=== PATIENT | female | born 1935 | race Caucasian/White ===

== ENCOUNTER 2016-05-24 15:29 | Emergency (ER) | payer OTHER ==
[~2016-05-24] VITALS: Ht 154.9 cm; Wt 80.0 kg
[2016-05-24 15:58] VITALS: TEMP 36.9; Ht 154.9 cm; Wt 80.0 kg
[2016-05-24] MEDS ORDERED: ASCA500 PO (17:47)
[2016-05-24] MEDS ORDERED: MISCTAB78 PO (17:47)
[2016-05-24] MEDS ORDERED: LOSA1TAB PO (17:47)
[2016-05-24] MEDS ORDERED: NTRGSL/4 UT (17:47)
[2016-05-24] MEDS ORDERED: METO-649 PO (17:47)
[2016-05-24] MEDS ORDERED: VERA120T2 PO (17:47)
[2016-05-24] MEDS ORDERED: WARF5TAB7 PO (17:47)
[2016-05-24] MEDS ORDERED: CRS/10 PO (17:47)
[2016-05-24] MEDS ORDERED: WARF7.5T4 PO (17:47)
[2016-05-24] MEDS ORDERED: ASPI81TA28 PO (17:47)
[2016-05-24] MEDS ORDERED: METO100T44 PO (17:47)
[2016-05-24 18:07] VITALS: BP 193/102; PULSE 71; O2SAT 95
--- NOTE | 2016-05-24 23:25 | EMERGENCY ROOM VISIT NOTE ---
History Report prepared by Leland: Talya Tipton Under the Supervision of: Dr. James Arriola M.D. First contact with patient: 16:06 Chief Complaint: ALLERGIC REACTION Stated Complaint: ALLERGIC REACTION Nursing Triage Summary: Triage note: Pt reports numbness and tingling on face and mouth and lips at approx [address] her with numbing medication to remove cyst on her head. pt reports "i know i have so many allergies maybe i am allergic to the numbing medication." pt reports "i just feel so washed out, i feel tired." History of Present Illness The patient is a 81 year old female who presents to the Emergency Room with complaints of a resolved allergic reaction that occurred about 2 hours ago, around 1430. The patient states that she was supposed to have a cyst removed from her head today, but when Dr. Jorge Brunson injected the area with lidocaine containing epinephrine, the patient began to experience numbness in her entire face. She states that only a small amount was injected, but she adds that she has a long list of medications, some of which are severe, that she is allergic to so she suspects that she had an allergic reaction to the lidocaine or epinephrine. The patient adds that the doctor was also concerned about the patient's fluctuating blood pressure, so she recommended coming into the ED for further evaluation. She did not have the cyst removed. Pt denies LOC, headache , fevers, chills, diaphoresis, visual changes, neck pain, chest pain, breathing difficulties, nausea, vomiting, abdominal pain, back pain, melena, hematochezia , urinary symptoms, focal or unilateral weakness, lymphadenopathy, rash including anything that was erythematous or pruritic, or other complaints. The patient states that she felt well prior to the procedure, but after the facial numbness she felt fatigued. The patient's adds that the patient's cheeks are flushed, which is what normally happens when she has allergic reactions. The patient denies every experiencing facial numbness with an allergic reaction in the past. Source of History: patient, spouse/significant other () Onset: 2 hours ago, around 1430 Position: head Quality: other (allergic reaction) Timing: resolved Associated Symptoms: + fatigue Note: flushed cheeks Review of Systems See HPI for pertinent positives and negatives. A total of ten systems were reviewed and were otherwise negative. Past Medical & Surgical Medical Problems: (1) History of atrial fibrillation (2) Myocardial infarction Family History No pertinent family history Social History Smoking Status: Never Smoker Marital Status: Housing Status: lives with family Current/Historical Medications Scheduled Ascorbic Acid (Vitamin C), 1,000 MG PO BID Aspirin (Aspirin Ec), 81 MG PO DAILY Losartan Potassium (Cozaar), 25 MG PO DAILY Metoprolol Succ (Toprol Xl) (Toprol-Xl ), 100 MG PO QPM Metoprolol Succinate (Toprolxl (Toprol-Xl), 200 MG PO QAM Misc Natural Products (Osteo Bi-Flex Advanced Do), 1 TAB PO BID Nitroglycerin (Nitrostat), 0.4 MG UT PRN Rosuvastatin Calcium (Crestor), 10 MG PO 5XWK Verapamil Sust Rel (Calan Sr Ext Rel), 120 MG PO DAILY Warfarin Sod (Jantoven), 5 MG PO 3XWK Warfarin Sod (Jantoven), 7.5 MG PO 4XWK Allergies Coded Allergies: Clindamycin (Unverified Allergy, Severe, SHOCK, 05/24/16) Clopidogrel (Unverified Allergy, Severe, HIVES, 05/24/16) Epinephrine (Unverified Allergy, Severe, NUMBNESS, 05/24/16) Acetaminophen (Unverified Allergy, Unknown, UNKNOWN, 05/24/16) Chocolate (Unverified Allergy, Unknown, PIMPLES, 05/24/16) Codeine (Unverified Allergy, Unknown, UNKNOWN, 05/24/16) Ezetimibe (Unverified Allergy, Unknown, UNKNOWN, 05/24/16) Hydrocodone (Unverified Allergy, Unknown, UNKNOWN, 05/24/16) Levothyroxine (Unverified Allergy, Unknown, UNKNOWN, 05/24/16) Metronidazole (Unverified Allergy, Unknown, LOSS OF PIGMENT IN SKIN. FATIGUE, 05/24/16) Mupirocin (Unverified Allergy, Unknown, CELLULITIS, 05/24/16) Oxycodone (Unverified Allergy, Unknown, UNKNOWN, 05/24/16) Sotalol (Unverified Allergy, Unknown, SWOLLEN ANKLES/REDNESS ON RIGHT LEG , 05/24/16) EPINEPHRINE-LIDOCAINE Statins (Unverified Allergy, Unknown, ACHY JOINTS, 05/24/16) Ticlopidine (Unverified Allergy, Unknown, RASH, 05/24/16) Physical Exam Vital Signs Date Time Temp Pulse Resp B/P Pulse Ox O2 Delivery O2 Flow Rate FiO2 05/24/16 18:07 71 18 193/102 95 Room Air 05/24/16 16:36 61 18 188/80 95 Room Air 05/24/16 15:58 36.9 67 20 181/77 95 Room Air 05/24/16 15:57 95 Room Air Physical Exam GENERAL: Awake, alert, well-appearing, in no distress HENT: Normocephalic, atraumatic. Round cyst on top of scalp. No signs of swelling, erythema, or drainage. Oropharynx unremarkable. EYES: Normal conjunctiva. Sclera non-icteric. NECK: Supple. No nuchal rigidity. FROM. No JVD. RESPIRATORY: Clear to auscultation. CARDIAC: Regular rate, normal rhythm. Extremities warm and well perfused. Pulses equal. ABDOMEN: Soft, non-distended. No tenderness to palpation. No rebound or guarding. No masses. RECTAL: Deferred. MUSCULOSKELETAL: Chest examination reveals no tenderness. The back is symmetrical on inspection without obvious abnormality. There is no CVA tenderness to palpation. No joint edema. LOWER EXTREMITIES: Calves are equal size bilaterally and non-tender. No edema. No discoloration. NEURO: Normal sensorium. No sensory or motor deficits noted. SKIN: No rash or jaundice noted. Medical Decision & Procedures ED Course 1614: The patient was evaluated in room A10. A complete history and physical exam was performed. 1720: I reevaluated the patient. Discussed results and discharge instructions: she verbalized understanding and agreement. The patient is ready for discharge. Medical Decision Prior records/ancillary studies reviewed. Triage Nursing notes reviewed and agree them. Additional history obtained from the . The patient's history was concerning for possible allergic reaction. Differential diagnosis: Etiologies such as allergic reaction, anaphylaxis, urticaria, medication side effect, hypertensive emergency, CVA, as well as others were entertained. Physical examination: As above. ER treatment provided: Cardiac monitoring Reassurance On reassessment the patient felt better. Diagnostic interpretation by me: Deferred It appears the patient had an adverse or allergic reaction. As her symptoms resolved and she has had numerous problems with other medications I discussed conservative management. Her symptoms were bilateral and only occurred in the face. It was immediately after receiving the injection. Theoretically it is possible that she had some vessel deposition of the medication and that caused the symptoms. Her blood pressure was moderately elevated. She had not taken her evening medications yet. As she was asymptomatic at this time I believe the patient should do well with conservative management. She felt very comfortable with conservative management as did the . I did watch the patient for an extended period emergency department and she continued to feel better. I did advise her follow-up closely as an outpatient. She was advised to have her blood pressure rechecked this week in the office. She has any problems whatsoever she will return back to the emergency department. At this point time advanced diagnostic testing or blood work was felt to be unnecessary. I gave my usual and customary discussion regarding this issue. By the evaluation outlined above emergent etiologies such as airway compromise, Del Valle-Roberto syndrome, toxic epidermal necrolysis, erythema multiforme, cellulitis, CVA, TIA, as well as others were deemed relatively unlikely. The patient and were informed about the findings as listed above. All questions were answered and they were very pleased with the treatment. Return instructions were outlined and the patient was discharged in stable condition. Outpatient prescription management: No change Referral: The patient was referred back to her primary care physician for follow-up in 2- 3 days for a recheck of the current condition. The chart was completed utilizing [employer] Speech voice recognition software. Grammatical errors, random word insertions, pronoun errors, and incomplete sentences are an occasional side effect of this system due to software limitations, ambient noise, and hardware issues. Any formal questions or concerns about the content, text, or information contained within the body of this dictation should be directly addressed to the physician for clarification. Impression Primary Impression: Adverse reaction to drug Scribe Attestation The scribe's documentation has been prepared under my direction and personally reviewed by me in its entirety. I confirm that the note above accurately reflects all work, treatment, procedures, and medical decision making performed by me. Departure Information Dispostion Home / Self-Care Referrals Waldo Armstrong M.D. (PCP) Forms HOME CARE DOCUMENTATION FORM, IMPORTANT VISIT INFORMATION Patient Instructions My [facility] Additional Instructions Continue current medications. Return to the ER for worsening numbness, tingling, difficulty speaking, chest pain, difficulty breathing, fevers, vomiting, worsening of your condition, or as needed. Problem Qualifiers Primary Impression: Adverse reaction to drug Encounter type: initial encounter Qualified Codes: T88.7XXA - Unspecified adverse effect of drug or medicament, initial encounter
== END 2016-05-24 18:08 | disposition home or self-care (01) ==
LOC: C.EDB 15:30 → C.EDA 18:08
DX: T88.7XXA Unspecified adverse effect of drug or medicament, initial encounter (principal); I25.2 Old myocardial infarction; Z79.82 Long term (current) use of aspirin; Z79.01 Long term (current) use of anticoagulants

== ENCOUNTER → 2016-06-11 | Outpatient (CLI) | payer OTHER ==
[~2016-06-11] MED LIST: ASCA500 PO; ASPI81TA28 PO; CRS/10 PO; LOSA1TAB PO; METO-649 PO; METO100T44 PO; MISCTAB78 PO; NTRGSL/4 UT; VERA120T2 PO; WARF5TAB7 PO; WARF7.5T4 PO
[2016-06-11 13:22] LABS: CALCIUM 9.2 mg/dl (8.5-10.1)
[2016-06-11 13:29] LABS: ALT/SGPT 25 U/L (12-78); BLOOD UREA NITROGEN 14 mg/dl (7-18); CARBON DIOXIDE 26 mmol/L (21-32); CHLORIDE 108 mmol/L (98-107); CHOLESTEROL 174 mg/dl (0-200); CREATININE 0.67 mg/dl (0.60-1.20); GLUCOSE 96 mg/dl (70-99); MAGNESIUM 1.9 mg/dl (1.8-2.4); SODIUM 142 mmol/L (136-145)
[2016-06-11 13:34] LABS: AST/SGOT 18 U/L (15-37); CHOLESTEROL/HDL RATIO 2.7; HDL CHOLESTEROL 64 mg/dl; LDL CHOLESTEROL CALCULATED 66 mg/dl; TRIGLYCERIDES 222 mg/dl (0-150); VERY LOW DENSITY LIPOPROT CALC 44 mg/dl
== END | disposition home or self-care (01) ==
LOC: C.LABMFLN 08:42
PROVIDERS: ATTEND Family Medicine
DX: I48.91 Unspecified atrial fibrillation (principal); I10 Essential (primary) hypertension; E78.5 Hyperlipidemia, unspecified

== ENCOUNTER → 2016-06-21 | Outpatient (CLI) | payer OTHER | END | disposition home or self-care (01) | LOC: C.LABMFLN 09:08 | PROVIDERS: ATTEND Family Medicine | DX: R63.5 Abnormal weight gain (principal); I48.91 Unspecified atrial fibrillation; E78.5 Hyperlipidemia, unspecified; I10 Essential (primary) hypertension; E83.42 Hypomagnesemia ==

== ENCOUNTER → 2017-03-21 | Day surgery (SDC) | payer OTHER ==
[2017-03-10 08:48] VITALS: Ht 152.4 cm; Wt 84.1 kg
[~2017-03-21] VITALS: Ht 152.4 cm; Wt 84.1 kg
[~2017-03-21] MED LIST changes: +FURO-85 PO; +LIDOCAINE HCL 2% 2 ML VIAL (20MG/ML) ONE; -METO-649 PO; +METO200T32 PO; +POTA10CA28 PO; +PROPOFOL IV EMULSION 10 MG/ML 20 ML VIAL IV ONE
[2017-03-21 12:01] LABS: INR 1.1 (0.9-1.1)
--- NOTE | 2017-03-21 13:10 | Endo History and Physical ---
History & Physical Date of Service: Mar 21, 2017. Chief Complaint: abnormal GI series Referring Physician: Dr. Waldo Armstrong History of Present Illness For EGD Past Surgical History Hx Cardiac Surgery: Yes (CARDIAC ABLATION; CARDIAC CATH X5 WITH TOTAL 2 STENTS) Hx Internal Defibrillator: No Hx Pacemaker: Yes Hx Abdominal Surgery: Yes (HIATAL HERNIA SURGERY WITH MESH; DOMINGA WITH BSO) Hx of Implantable Prosthesis: No Hx Post-Op Nausea and Vomiting: No Hx Cancer Surgery: Yes (PARTIAL MASTECTOMY) Hx Thoracic Surgery: No Hx Orthopedic: No Hx Urinary Tract Surgery: No Family History None Social History Smoking Status: Never Smoker Hx Substance Use: No Hx Alcohol Use: No Allergies Coded Allergies: Clindamycin (Verified Allergy, Severe, SHOCK, 03/21/17) Clopidogrel (Verified Allergy, Severe, HIVES, 03/21/17) Epinephrine (Verified Allergy, Severe, NUMBNESS, 03/21/17) Codeine (Verified Allergy, Unknown, UNKNOWN, 03/21/17) Ezetimibe (Verified Allergy, Unknown, UNKNOWN, 03/21/17) Hydrocodone (Verified Allergy, Unknown, UNKNOWN, 03/21/17) Levothyroxine (Verified Allergy, Unknown, UNKNOWN, 03/10/17) Metronidazole (Verified Allergy, Unknown, LOSS OF PIGMENT IN SKIN. FATIGUE , 03/21/17) Mupirocin (Verified Allergy, Unknown, WEAKNESS,NAUSEATED, 03/21/17) Oxycodone (Verified Allergy, Unknown, UNKNOWN, 03/21/17) Sotalol (Verified Allergy, Unknown, SWOLLEN ANKLES/REDNESS ON RIGHT LEG, ) EPINEPHRINE-LIDOCAINE Ticlopidine (Verified Allergy, Unknown, RASH, 03/21/17) Chocolate (Verified Adverse Reaction, Unknown, PIMPLES, 03/21/17) Statins (Verified Adverse Reaction, Unknown, ACHY JOINTS, 03/21/17) Current Medications Reported Home Medications Medications Dose Route/Sig Max Daily Dose Days Date Category Dose Instructions Micro-K Ext Rel (Potassium Chloride) 10 Meq Capcr 10 Meq PO QAM 03/10/17 Reported Lasix (Furosemide) 20 Mg Tab 20 Mg PO Q2D 03/10/17 Reported Jantoven (Warfarin Sodium) 7.5 Mg Tab 7.5 Mg PO 6XWK 05/24/16 Reported Jantoven (Warfarin Sodium) 5 Mg Tab 5 Mg PO Tuesday05/24/16 Reported Toprol-Xl (Metoprolol Succinate) 200 Mg Tabcr 200 Mg PO QAM 05/24/16 Reported Toprol-Xl (Metoprolol Succinate) 100 Mg Tabcr 100 Mg PO QPM 05/24/16 Reported Calan Sr Ext Rel (Verapamil HCl) 120 Mg Tabcr 120 Mg PO QPM 05/24/16 Reported Nitrostat (Nitroglycerin) 0.4 Mg Tab 0.4 Mg UT PRN 05/24/16 Reported QUIT CARRYING IT Aspirin Ec (Aspirin) 81 Mg Tab 81 Mg PO QAM 05/24/16 Reported Osteo Bi-Flex Advanced Do (Misc Natural Products) 1 Tab Tab 1 Tab PO BID 05/24/16 Reported Vitamin C (Ascorbic Acid) 500 Mg Tab 1,000 Mg PO BID 05/24/16 Reported Crestor (Rosuvastatin Calcium) 10 Mg Tab 10 Mg PO 5XWK 05/24/16 Reported Cozaar (Losartan Potassium) 25 Mg Tab 25 Mg PO QAM 05/24/16 Reported Vital Signs Weight (Kilograms): 84.09 Height (Feet): 5 Height (Inches): 0 Date Time Temp Pulse Resp B/P (MAP) Pulse Ox O2 Delivery O2 Flow Rate FiO2 03/21/17 12:15 36.4 80 20 221/112 (148) 96 Room Air 194/116 (142) Physical Exam General Appearance: WD/WN Respiratory/Chest: Respiratory effort: no dyspnea Cardiovascular: Heart Auscultation: RRR Abdomen: Inspection & Palpation: soft Assessment and Plan Abnl UGI for EGD
--- NOTE | 2017-03-21 13:29 | Discharge Instructions ---
Endoscopy Patient Instructions Date / Procedure(s) Performed Mar 21, 2017. EGD Allergy Information Coded Allergies: Clindamycin (Verified Allergy, Severe, SHOCK, 03/21/17) Clopidogrel (Verified Allergy, Severe, HIVES, 03/21/17) Epinephrine (Verified Allergy, Severe, NUMBNESS, 03/21/17) Codeine (Verified Allergy, Unknown, UNKNOWN, 03/21/17) Ezetimibe (Verified Allergy, Unknown, UNKNOWN, 03/21/17) Hydrocodone (Verified Allergy, Unknown, UNKNOWN, 03/21/17) Levothyroxine (Verified Allergy, Unknown, UNKNOWN, 03/10/17) Metronidazole (Verified Allergy, Unknown, LOSS OF PIGMENT IN SKIN. FATIGUE , 03/21/17) Mupirocin (Verified Allergy, Unknown, WEAKNESS,NAUSEATED, 03/21/17) Oxycodone (Verified Allergy, Unknown, UNKNOWN, 03/21/17) Sotalol (Verified Allergy, Unknown, SWOLLEN ANKLES/REDNESS ON RIGHT LEG, ) EPINEPHRINE-LIDOCAINE Ticlopidine (Verified Allergy, Unknown, RASH, 03/21/17) Chocolate (Verified Adverse Reaction, Unknown, PIMPLES, 03/21/17) Statins (Verified Adverse Reaction, Unknown, ACHY JOINTS, 03/21/17) Discharge Date / Findings Mar 21, 2017. intact fundopilcation Medication Instructions Stopped Medication(s): Stopped ASA and coumadin on Mar.16 Restart Stopped Medication(s): resume meds Reported Home Medications Medications Dose Route/Sig Max Daily Dose Days Date Category Dose Instructions Micro-K Ext Rel (Potassium Chloride) 10 Meq Capcr 10 Meq PO QAM 03/10/17 Reported Lasix (Furosemide) 20 Mg Tab 20 Mg PO Q2D 03/10/17 Reported Jantoven (Warfarin Sodium) 7.5 Mg Tab 7.5 Mg PO 6XWK 05/24/16 Reported Jantoven (Warfarin Sodium) 5 Mg Tab 5 Mg PO Tuesday05/24/16 Reported Toprol-Xl (Metoprolol Succinate) 200 Mg Tabcr 200 Mg PO QAM 05/24/16 Reported Toprol-Xl (Metoprolol Succinate) 100 Mg Tabcr 100 Mg PO QPM 05/24/16 Reported Calan Sr Ext Rel (Verapamil HCl) 120 Mg Tabcr 120 Mg PO QPM 05/24/16 Reported Nitrostat (Nitroglycerin) 0.4 Mg Tab 0.4 Mg UT PRN 05/24/16 Reported QUIT CARRYING IT Aspirin Ec (Aspirin) 81 Mg Tab 81 Mg PO QAM 05/24/16 Reported Osteo Bi-Flex Advanced Do (Misc Natural Products) 1 Tab Tab 1 Tab PO BID 05/24/16 Reported Vitamin C (Ascorbic Acid) 500 Mg Tab 1,000 Mg PO BID 05/24/16 Reported Crestor (Rosuvastatin Calcium) 10 Mg Tab 10 Mg PO 5XWK 05/24/16 Reported Cozaar (Losartan Potassium) 25 Mg Tab 25 Mg PO QAM 05/24/16 Reported Provider Instructions Activity Restrictions - No exercising or heavy lifting for 24 hours. - Do not drink alcohol the day of the procedure. - Do not drive a car or operate machinery until the day after the procedure. - Do not make any important decisions or sign important papers in 24 hours after the procedure. Following Day: - Return to full activity which may include returning to work/school. Diet Start your diet with liquids and light foods (jello, soup, juice, toast). Then eat your usual diet if not nauseated. Treatment For Common After Affects For mild abdominal pain, bloating, or excessive gas: - Rest - Eat lightly - Lie on right side Follow-Up Information Follow-up with Dr. Waldo Armstrong as scheduled Anesthesia Information What You Should Know You have had a procedure that required some medicine to reduce anxiety and discomfort. This treatment is called moderate sedation. After receiving the treatment, you may be sleepy, but you will be able to breathe on your own. The effects of the treatment may last for several hours. Follow these instructions along with Activity/Diet recommendations noted above: * Do NOT do anything where dizziness or clumsiness would be dangerous. * Rest quietly at home today, then you can be up and about tomorrow. * Have a responsible person stay with you the rest of today. * You may have had an I.V. today. If so, you may take the dressing off later today. Recommendations Call your doctor if: * Trouble breathing * Continuous vomiting for more than 24 hours * Temperature above 101 degrees * Severe abdominal pain or bloating * Pain not relieved by pain medicine ordered * There is increased drainage or redness from any incision * A large amount of rectal bleeding greater than 2-3 tablespoons. (If you had a polyp/s removed or have hemorrhoids, a small amount of blood - from the rectum is to be expected.) * You have any unanswered questions or concerns. IN THE EVENT OF A SERIOUS EMERGENCY, GO TO THE NEAREST EMERGENCY ROOM Your discharge instructions were prepared by provider Lane Medina. Patient Instructions Signature Page Debby Prather Patient (or Guardian) Signature/Date: I have read and understand the instructions given to me by my caregivers. Caregiver/RN/Doctor Signature/Date: The above-named patient and/or guardian has received patient instructions on this date. + Original Patient Signature Page (only) stays with chart. Please make copy for patient.
--- NOTE | 2017-03-21 13:32 | GI REPORT ---
Procedure Date: 03/21/2017 1:13 PM Procedure: Upper GI endoscopy Indications: Abnormal UGI series Medicines: Propofol total dose 160 mg IV, Lidocaine 80 mg IV Complications: No immediate complications. Estimated Blood Loss: Estimated blood loss: none. Procedure: Pre-Anesthesia Assessment: - Prior to the procedure, a History and Physical was performed, and patient medications, allergies and sensitivities were reviewed. The patient's tolerance of previous anesthesia was reviewed. - The risks and benefits of the procedure and the sedation options and risks were discussed with the patient. All questions were answered and informed consent was obtained. After obtaining informed consent, the endoscope was passed under direct vision. Throughout the procedure, the patient's blood pressure, pulse, and oxygen saturations were monitored continuously. The scope was introduced through the mouth, and advanced to the second part of duodenum. The upper GI endoscopy was accomplished without difficulty. The patient tolerated the procedure well. Findings: The Z-line was regular and was found 37 cm from the incisors. Evidence of a fundoplication was found at the gastroesophageal junction. The wrap appeared intact. This was traversed. The entire examined stomach was normal. The examined duodenum was normal. Impression: - Z-line regular, 37 cm from the incisors. - A fundoplication was found. The wrap appears intact. - Normal stomach. - Normal examined duodenum. - No specimens collected. Recommendation: - Discharge patient to home (ambulatory). - Continue present medications. - Return to primary care physician PRN. Lane Medina M.D. Lane Medina MD 03/21/2017 1:32:24 PM This report has been signed electronically. Note Initiated On: 03/21/2017 1:13 PM I attest to the content of the Intraoperative Record and orders documented therein, exceptions below
[2017-03-21 14:00] VITALS: BP 175/90; PULSE 61; O2SAT 96
--- NOTE | 2017-03-21 14:06 | Anesthesiology Progress Note ---
Anesthesia Post Op Note Date & Time Mar 21, 2017 at 14:06 Vital Signs Pain Intensity: 0 Vital Signs Past 12 Hours Date Time Temp Pulse Resp B/P (MAP) Pulse Ox O2 Delivery O2 Flow Rate FiO2 03/21/17 14:00 61 18 175/90 (118) 96 Room Air 03/21/17 13:45 62 16 158/80 (106) 96 Room Air 03/21/17 13:31 66 16 132/77 (95) 96 Room Air 03/21/17 12:15 36.4 80 20 221/112 (148) 96 Room Air 194/116 (142) Notes Mental Status: alert / awake / arousable, participated in evaluation Pt Amnestic to Procedure: Yes Nausea / Vomiting: adequately controlled Pain: adequately controlled Airway Patency, RR, SpO2: stable & adequate BP & HR: stable & adequate Hydration State: stable & adequate Anesthetic Complications: no major complications apparent
== END | disposition home or self-care (01) ==
LOC: C.GI 11:22
PROVIDERS: ATTEND Internal Medicine Gastroenterology
DX: R93.3 Abnormal findings on diagnostic imaging of other parts of digestive tract (principal); I10 Essential (primary) hypertension; I25.10 Atherosclerotic heart disease of native coronary artery without angina pectoris; I25.2 Old myocardial infarction; Z98.890 Other specified postprocedural states; Z90.10 Acquired absence of unspecified breast and nipple; Z88.5 Allergy status to narcotic agent; Z88.9 Allergy status to unspecified drugs, medicaments and biological substances; Z79.01 Long term (current) use of anticoagulants; Z79.82 Long term (current) use of aspirin; Z79.899 Other long term (current) drug therapy; Z85.3 Personal history of malignant neoplasm of breast

== ENCOUNTER → 2017-04-01 | Outpatient (CLI) | payer OTHER ==
[~2017-04-01] MED LIST changes: -LIDOCAINE HCL 2% 2 ML VIAL (20MG/ML) ONE; -PROPOFOL IV EMULSION 10 MG/ML 20 ML VIAL IV ONE
[2017-04-01 13:58] LABS: ALBUMIN 3.6 gm/dl (3.4-5.0); ALT/SGPT 22 U/L (12-78); BLOOD UREA NITROGEN 14 mg/dl (7-18); CALCIUM 8.8 mg/dl (8.5-10.1); CARBON DIOXIDE 24 mmol/L (21-32); GLUCOSE 101 mg/dl (70-99); POTASSIUM 4.1 mmol/L (3.5-5.1); SODIUM 138 mmol/L (136-145)
[2017-04-01 14:08] LABS: ALKALINE PHOSPHATASE 73 U/L (45-117); AST/SGOT 17 U/L (15-37)
== END | disposition home or self-care (01) ==
LOC: C.LABMFLN 17:45
PROVIDERS: ATTEND Family Medicine
DX: I48.91 Unspecified atrial fibrillation (principal); I10 Essential (primary) hypertension; E78.5 Hyperlipidemia, unspecified; R53.83 Other fatigue; R06.09 Other forms of dyspnea; M79.1 Myalgia

== ENCOUNTER → 2017-05-03 | Outpatient (CLI) | payer OTHER ==
[2017-05-03 19:05] LABS: BLOOD UREA NITROGEN 13 mg/dl (7-18); CARBON DIOXIDE 25 mmol/L (21-32); CREATININE 0.66 mg/dl (0.60-1.20); GLUCOSE 86 mg/dl (70-99); POTASSIUM 3.9 mmol/L (3.5-5.1); SODIUM 138 mmol/L (136-145)
== END | disposition home or self-care (01) ==
LOC: C.LABMFLN 16:24
PROVIDERS: ATTEND Family Medicine
DX: R06.09 Other forms of dyspnea (principal)

== ENCOUNTER → 2017-06-01 | Outpatient (CLI) | payer OTHER ==
[2017-06-01 13:53] LABS: ALBUMIN 3.5 gm/dl (3.4-5.0); ALT/SGPT 22 U/L (12-78); BLOOD UREA NITROGEN 15 mg/dl (7-18); CALCIUM 8.7 mg/dl (8.5-10.1); CARBON DIOXIDE 25 mmol/L (21-32); CREATININE 0.85 mg/dl (0.60-1.20); GLUCOSE 128 mg/dl (70-99); SODIUM 138 mmol/L (136-145)
[2017-06-01 13:58] LABS: ALKALINE PHOSPHATASE 86 U/L (45-117); AST/SGOT 20 U/L (15-37); CHOLESTEROL 181 mg/dl (0-200); LDL CHOLESTEROL CALCULATED 76 mg/dl; TOTAL PROTEIN 7.2 gm/dl (6.4-8.2)
== END | disposition home or self-care (01) ==
LOC: C.LABMFLN 17:46
PROVIDERS: ATTEND Family Medicine
DX: I48.91 Unspecified atrial fibrillation (principal); I10 Essential (primary) hypertension; E78.5 Hyperlipidemia, unspecified

== ENCOUNTER → 2017-09-28 | Outpatient (CLI) | payer OTHER ==
[~2017-09-28] MED LIST changes: +CARDIO PLUS PO; +CATALYN PO; +CRD200 PO; -FURO-85 PO; -MISCTAB78 PO; -POTA10CA28 PO; -VERA120T2 PO
== END | disposition home or self-care (01) ==
LOC: C.LABMFLN 09:02
PROVIDERS: ATTEND Family Medicine
DX: R79.89 Other specified abnormal findings of blood chemistry (principal)

== ENCOUNTER 2017-10-07 07:54 | Inpatient (IN) | payer OTHER ==
[2017-09-01 16:07] VITALS: BMI 36.0
--- NOTE | 2017-09-06 16:20 | PAT Medication Instructions ---
Service Date Sep 06, 2017. Current Home Medication List Amiodarone HCl (Amiodarone HCl), 200 MG PO QPM Ascorbic Acid (Vitamin C), 1,000 MG PO BID Aspirin (Aspirin Ec), 81 MG PO QAM Losartan Potassium (Cozaar), 25 MG PO QAM Metoprolol Succ (Toprol Xl) (Toprol-Xl ), 100 MG PO QPM Metoprolol Succinate (Toprolxl (Toprol-Xl), 200 MG PO QAM Nitroglycerin (Nitrostat), 0.4 MG UT PRN Rosuvastatin Calcium (Crestor), 10 MG PO 4XWK Warfarin Sod (Jantoven), 5 MG PO 6XWK Warfarin Sod (Jantoven), 7.5 MG PO WK [Cardio Plus], 1 TAB PO TID [Catalyn], 1 TAB PO BID [Catalyn], 2 TAB PO QDL Medication Instructions For Your Scheduled Surgery - Hold the following medications 2 weeks prior to surgery: [Cardio Plus], 1 TAB PO TID [Catalyn], 1 TAB PO BID [Catalyn], 2 TAB PO QDL - Check with surgeon and prescribing physician for instructions: Warfarin Sod (Jantoven), 5 MG PO 6XWK Warfarin Sod (Jantoven), 7.5 MG PO WK - Continue as directed: Rosuvastatin Calcium (Crestor), 10 MG PO 4XWK - Hold the following medications the morning of surgery: Losartan Potassium (Cozaar), 25 MG PO QAM Ascorbic Acid (Vitamin C), 1,000 MG PO BID - Take the following medications the morning of surgery with a sip of water: Aspirin (Aspirin Ec), 81 MG PO QAM Metoprolol Succinate (Toprolxl (Toprol-Xl), 200 MG PO QAM Nitroglycerin (Nitrostat), 0.4 MG UT PRN (if needed) - Take the following medications as scheduled the night before surgery: Nitroglycerin (Nitrostat), 0.4 MG UT PRN (if needed) Metoprolol Succ (Toprol Xl) (Toprol-Xl ), 100 MG PO QPM Ascorbic Acid (Vitamin C), 1,000 MG PO BID Amiodarone HCl (Amiodarone HCl), 200 MG PO QPM If you have any questions please call us at [phone] or [phone] or [phone]
[2017-09-07 11:00] VITALS: BMI 35.0
--- NOTE | 2017-10-06 09:53 | HISTORY & PHYSICAL EXAMINATION ---
DATE OF ADMISSION: 10/07/2017 CHIEF COMPLAINT: Primary osteoarthritis of the right knee. HISTORY OF PRESENT ILLNESS: Debby is a pleasant 82-year-old female who has been having a 5-month history of right knee pain. She does not recall any injuries. X-rays and clinical examination have been diagnostic for primary osteoarthritis of the right knee. She did have a knee injection, but unfortunately it did not help with her symptoms. She still has a lot of pain in her knee. She has pain when standing for any long periods of time. She has elected to proceed with a right total knee arthroplasty. 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 PAST SURGICAL HISTORY: Significant for hiatal hernia, hysterectomy, partial mastectomy, pacemaker placement in 2016, cardiac stent placement in 1999 and 2002. ALLERGIES: She has a long list of allergies, but she claims that CLINDAMYCIN SENT HER INTO ANAPHYLACTIC REACTION FOR WHICH SHE WAS HOSPITALIZED. All other reactions were minor. MEDICATIONS: Include losartan, amiodarone, rosuvastatin, Coumadin, verapamil, and aspirin. FAMILY HISTORY: Denies. SOCIAL HISTORY: The patient is , has 3 kids. She never drinks. Her is able to help take care of her. She wants to go to [facility] postoperatively. REVIEW OF SYSTEMS: She complains of right knee pain. All other pertinent review of systems are negative. PHYSICAL EXAMINATION: GENERAL: She is awake, alert, and oriented x3. She is in no apparent distress. She is very pleasant. HEENT: Pupils are equal, round, and reactive to light. Extraocular motion intact. Oral mucosa is pink and moist. HEART: Regular rate per radial pulse. LUNGS: Kristie symmetrically bilaterally with no audible breath sounds. ABDOMEN: Soft, nontender, nondistended. MUSCULOSKELETAL: On physical examination of the right knee, she has a slight varus deformity. She has good motion from 0-115 degrees. She has no instability. She has a lot of pain over the distal medial femoral condyle and over the medial joint line. She has a trace effusion. IMAGING DATA: X-rays of the knee do show advanced osteoarthritis with joint space narrowing, osteophyte formation, and [id number] articulation. IMPRESSION: Primary osteoarthritis of the right knee. PLAN: We will proceed with a right total knee arthroplasty. Postoperatively, she will be kept in the hospital for a postoperative medical management. We will plan to put her back on Coumadin postoperatively and discharge her to home with physical therapy.
[2017-10-07] VITALS (9 sets, daily range): BP systolic 134–216; BP diastolic 79–95; PULSE 59–70; TEMP 35.4–36.7; O2SAT 93–97; Ht 154.9 cm; Wt 84.3 kg
[~2017-10-07] VITALS: Ht 154.9 cm; Wt 84.3 kg
[2017-10-07] MEDS: TRANEXAMIC ACID INJ 1,000 MG x 2 Bags IV SCH ×4 (06:30→11:30)
[~2017-10-07 07:54] MED LIST changes: +ACETAMINOPHEN 500 MG TAB PO SCH; +BUPIVACAINE 0.5 % 5 MG/1 ML PF 10ML VIAL ONE; +CEFAZOLIN 2000MG IV PUSH 15 ML IV SCH; +FAMOTIDINE 20 MG TAB PO SCH; +GABAPENTIN 300 MG CAP PO SCH; +LACTATED RINGER'S 1000ML 1,000 ML IV SCH; +LACTATED RINGER'S 1000ML 500 ML IV SCH; +ROPIVACAINE 0.5% 5 MG/ML 30 ML VIAL ONE; +ROPIVACAINE 5MG/ML 30 ML 150 MG, BUPIVACAINE 0.5% MPF INJ 30 ML, EpINEphrine HCL INJ 0.... INFIL SCH; +[UNRECOGNIZED DRUG - REMARK] SCH
[2017-10-07 08:43] LABS: PTT PATIENT 25.9 SECONDS (21.0-31.0)
--- NOTE | 2017-10-07 08:44 | History & Physical Bridge Note ---
H&P Re-Evaluation Bridge Note: I have examined the patient, reviewed the History & Physical and in the interval since the performance of the History & Physical I have noted the following changes of clinical significance: No changes noted
[2017-10-07] MEDS ORDERED: ATROPINE SULFATE 0.1 MG/ML 5ML SYR IV PRN (10:00)
[2017-10-07] MEDS ORDERED: LABETALOL HCL IV 5 MG/ML 20ML IV PRN (10:00)
[2017-10-07] MEDS ORDERED: NALOXONE HCL 0.4 MG/1 ML VIAL/CARP IV PRN (10:00)
[2017-10-07] MEDS ORDERED: FLUMAZENIL 0.1 MG/1 ML 10 ML VIAL IV PRN (10:00)
[2017-10-07] MEDS ORDERED: PHENYLEPHRINE 100MCG/ML 5ML SYR IV PRN (10:00)
[2017-10-07] MEDS ORDERED: ONDANSETRON INJ 2 MG/ML 2 ML VIAL IV PRN ×2 (10:00→12:00)
[2017-10-07] MEDS ORDERED: MEPERIDINE HCL 25 MG/ML CARP IV PRN (10:00)
[2017-10-07] MEDS ORDERED: EpHEDrine SULFATE INJ 50 MG/ML AMP IV PRN (10:00)
[2017-10-07] MEDS ORDERED: FENTANYL CITRATE INJ 50 MCG/1 ML 2 ML VIAL IV PRN (10:00)
[2017-10-07] MEDS ORDERED: PROPOFOL IV EMULSION 10 MG/ML 20 ML VIAL ONE ×2 (10:59→11:10)
[2017-10-07] MEDS ORDERED: MIDAZOLAM HCL 1 MG/ML 2ML VIAL ONE ×2 (11:32)
[2017-10-07] MEDS ORDERED: NITROGLYCERIN 0.4 MG SL PER TAB CHARGE UT PRN (12:00)
[2017-10-07] MEDS ORDERED: METOCLOPRAMIDE HCL INJ 5 MG/ML 2 ML VIAL IV PRN (12:00)
[2017-10-07] MEDS ORDERED: MAGNESIUM HYDROXIDE SUSP 30 ML UDC PO PRN (12:00)
[2017-10-07] MEDS ORDERED: MoRPHine SULFATE 2 MG/ML CARP IV PRN (12:00)
[2017-10-07] MEDS ORDERED: SOD PHOSPHATE/SOD BIPHOSPHATE ENEMA 132 ML BTL PR PRN (12:00)
[2017-10-07] MEDS ORDERED: BISACODYL 10 MG SUPP PR PRN (12:00)
[2017-10-07] MEDS ORDERED: TRAMADOL HCL 50 MG TAB PO PRN (12:00)
--- NOTE | 2017-10-07 12:00 | Discharge Instructions ---
Discharge Instructions Date of Service Oct 07, 2017. Admission Reason for Admission: Right Knee Degenerative Joint Disease Discharge Discharge Diagnosis / Problem: Right Total Knee Discharge Goals Goal(s): Decrease discomfort, Improve function Activity Recommendations Activity Limitations: as noted below . Instructions / Follow-Up Instructions / Follow-Up Activity and Therapy Recommendations: * If you are using [facility] then Physical Therapy will be provided until they feel you are ready to start Outpatient Physical Therapy. If you are not using a Home Health agency then Outpatient Physical Therapy should start about 3-5 days from your day of surgery. Therapy will last about 6-10 weeks * It is important not to put a pillow under your knee when you are relaxing or sleeping. It is just as important to make sure you are getting your knee perfectly straight as it is to regain your knee bend. * You were shown a series of exercises in the hospital. Do these exercises three times each day including the exercises you were shown in physical therapy. * Get up and walk several times each day. For the first four weeks, try not to stand or walk for more than one hour at a time. If you do stand or walk for more than one hour, you will not hurt anything, but your leg will likely swell. * As you feel comfortable, you may change from the walker or crutches to a cane and then to independent walking. Medications: * Narcotic You will likely be sent home from the hospital with a prescription for the narcotic pain medication that worked best throughout your stay. * Aspirin Most patients will be required to take Aspirin 325mg twice a day for 6 weeks after surgery. This is obtained [id number] and a prescription is not necessary. * Other medications may be prescribed for specific circumstances. If you have any questions, please call the office at . * Resume previous home medications unless otherwise instructed TEDs/Elastic Stockings: The white elastic stockings help limit swelling and prevent blood clots from forming in your legs.~ The more you wear them, the more they work. Wear them for six weeks. Dressing Care: If the incision is not draining then you may leave the arleen open to air. If there is a little bit of drainage or if the arleen are getting stuck on your clothing then cover the incision with a dry dressing. The arleen will be removed at your 2 week follow-up appointment. Showering: You may shower 5 days from the day of surgery. Let the soapy shower water run over the arleen and pat them dry. Do not scrub or soak the incision. Things To Watch For: * Drainage from the incision site that occurs more than one week after your surgery. * Increased redness at the incision site. * Fever above 102 degrees Fahrenheit. * Unusual chest pain or shortness of breath. * Call [facility] at with any of the above problems Follow-Up Visit: Follow-up with Dr. Oliveira 2 weeks after your day of surgery. An appointment was probably scheduled when you signed-up for surgery in the office. If you have any questions call Office Instructions: More detailed instructions as well as Frequently Asked Questions were provided in a folder by our office when you signed-up for surgery. Please review these instructions when you get home. If you have any further questions or concerns, please feel free to call the office at [phone] Current Hospital Diet Patient's current hospital diet: Regular Diet Discharge Diet Recommended Diet: Regular Diet Pending Studies Studies pending at discharge: no Medical Emergencies . Who to Call and When: Medical Emergencies: If at any time you feel your situation is an emergency, please call [phone] immediately. . Non-Emergent Contact Non-Emergency issues call your: Surgeon Call Non-Emergent contact if: wound has increased drainage, wound has increased redness . "Provider Documentation" section prepared by Hector Oliveira. .
[2017-10-07] MEDS ORDERED: BACITRACIN 50000 UNIT VIAL ONE (12:02)
[2017-10-07] MEDS ORDERED: ORTHO JOINT ANESTHETIC ONE (12:02)
--- NOTE | 2017-10-07 13:18 | [facility] Post Operative Brief Note ---
Immediate Operative Summary Operative Date Oct 07, 2017. Pre-Operative Diagnosis Primary Osteoarthritis of the Right Knee Post-Operative Diagnosis Primary Osteoarthritis of the Right Knee Procedure(s) Performed Right Total Knee Arthroplasty, Cemented Surgeon Dr. Oliveira Personnel Research Psychologist Surgeon(s) Ervin Sanchez PA-C Estimated Blood Loss 20cc Findings Consistent with Post-Op Diagnosis Specimens A: Right knee bone and tissue Drains None Anesthesia Type [facility]
--- NOTE | 2017-10-07 14:14 | Anesthesiology Progress Note ---
Anesthesia Post Op Note Date & Time Oct 07, 2017 at 14:14 Vital Signs Pain Intensity: 0 Vital Signs Past 12 Hours Date Time Temp Pulse Resp B/P (MAP) Pulse Ox O2 Delivery O2 Flow Rate FiO2 10/07/17 14:07 132/63 10/07/17 14:05 60 18 95 10/07/17 14:05 60 18 10/07/17 14:01 132/63 10/07/17 14:00 63 18 98 10/07/17 14:00 63 18 10/07/17 13:56 132/54 10/07/17 13:55 61 16 96 10/07/17 13:55 61 16 10/07/17 13:50 60 20 10/07/17 13:50 58 20 96 10/07/17 13:45 36.5 67 19 126/59 2 Nasal Cannula 10/07/17 08:42 36.6 70 18 216/95 93 Room Air Notes Mental Status: alert / awake / arousable, participated in evaluation Pt Amnestic to Procedure: Yes Nausea / Vomiting: adequately controlled Pain: adequately controlled Airway Patency, RR, SpO2: stable & adequate BP & HR: stable & adequate Hydration State: stable & adequate Neuraxial Anesthesia: was administered, sensory block is resolving Anesthetic Complications: no major complications apparent
--- NOTE | 2017-10-07 14:28 | DIAGNOSTIC IMAGING REPORT ---
R KNEE 1 OR 2 VIEWS ROUTINE CLINICAL HISTORY: 82 years-old Female presenting with AP/LATERAL IN PACU RIGHT KNEE. TECHNIQUE: Frontal and lateral views of the right knee were obtained. COMPARISON: 04/05/2017. FINDINGS: There has been interval total right knee arthroplasty with patellar resurfacing. Intra-articular and soft tissue emphysema. Moderate knee joint effusion. Skin arleen noted. No malalignment. No periprosthetic fracture. Screw track noted in the medial tibia. IMPRESSION: Expected postsurgical changes status post total right knee arthroplasty with patellar resurfacing. Electronically signed by: Callum Serrano M.D. 10/07/2017 2:27 PM Dictated Date/Time: 10/07/2017 2:26 PM
--- NOTE | 2017-10-07 15:40 | OPERATIVE REPORT ---
DATE OF OPERATION: 10/07/2017 PREOPERATIVE DIAGNOSIS: Primary osteoarthritis of the right knee. POSTOPERATIVE DIAGNOSIS: Primary osteoarthritis of the right knee. PROCEDURE: Right total knee arthroplasty. SURGEON: Hector Oliveira DO BOAT TENDER: Ervin Sanchez PA-C, whose assistance was necessary for retraction and closure. ANESTHESIA: Spinal with a right interscalene nerve block. COMPLICATIONS: None. CONDITION: Stable to PACU. INDICATIONS: Debby is a pleasant 82-year-old female who presented to my office with chronic increasing right knee pain. X-rays and clinical examination were diagnostic for primary osteoarthritis of the right knee. After failing conservative treatment, she elected to undergo a right total knee arthroplasty. DESCRIPTION OF PROCEDURE: On 10/07/2017, she arrived at [facility] for the above procedure. She was seen in the preoperative holding area and the operative extremity was identified and signed. She was then given a preoperative antibiotic and a spinal anesthetic. She was taken back to the operating room, laid on table in supine position, given basic sedation. The right knee was then prepped and draped in sterile fashion. A timeout was done. The patient's operative extremity was properly identified. A midline incision was made directly over the patella. Dissection was taken down through the fascia and a medial parapatellar arthrotomy was used. The medial retinaculum was released. The fat pad was left intact. The knee was then flexed. ACL, PCL and meniscus were removed. A drill was sent down the center of the femoral canal, followed by an intramedullary lincoln. Off that lincoln, a distal femoral cutting block was placed. A 12 mm was resected off the distal femur at 5 degrees of valgus. A posterior referencing guide was used to measure the distal femur and it measured to be a size 65. Two drill holes were placed in 3 degrees of external rotation. A 4-in-1 cutting block was then packed into place. Anterior, posterior and chamfer cuts were then made. A box cutting guide was then impacted into place and the box was resected for the posterior stabilizing component. The proximal tibia was then exposed. A drill was sent down the center of the tibial canal followed by an intermedullary lincoln. Off that lincoln, a proximal tibial resection guide was placed and 3 mm was resected off the low medial side. The tibia measured to be a size 67. It was set in the appropriate rotation, drilled and then punched. The posterior aspect of the knee was then opened up and any remaining osteophytes or soft tissue fragments were removed. Trial components were then placed as well as a size-10 posterior stabilized poly. The knee was brought through a full range of motion and felt to be stable. The patella was then everted and 8 mm was resected off the posterior aspect of the patella. Three peg holes were then drilled. The patella measured to be a size-31. Trial complements were then removed. Surrounding soft tissues were injected with 100 mL of an orthopedic pain control cocktail. Femoral, tibial, and patellar components were then cemented in place with Palacos-G cement. A size-10 PS Plus implant was then snapped into place and the anterior bar was locked. The knee was brought through full range of motion and felt to be stable. Tourniquet was deflated. Hemostasis was obtained. The extensor mechanism was closed with #2 FiberWire suture in the superior medial aspect and #1 Vicryl, both proximally and distally. Skin was closed with 2-0 Vicryl, 3-0 V-Loc suture and arleen. She was then placed in a soft dressing and transferred to a hospital bed and taken to postanesthesia care unit in stable condition. She tolerated the procedure well. IMPLANTS USED: I used a Quarterlyguard right total knee arthroplasty system with a size-65 femur, 67-tibia, a 31 x 8 patella, and a size-10 PS Plus poly. I attest to the content of the Intraoperative Record and any orders documented therein. Any exception s are noted below.
[2017-10-07] MEDS: KETOROLAC TROMETHAMINE 15 MG/ML VIAL IV. SCH ×2 (17:07→21:50)
[2017-10-07] MEDS: ACETAMINOPHEN 500 MG TAB PO SCH ×2 (17:12→21:51)
[2017-10-07] MEDS ORDERED: WARFARIN SOD 5 MG TAB PO ONE (18:00)
[2017-10-07] MEDS: SODIUM CHLORIDE 0.9% 1000ML 1,000 ML IV SCH ×2 (19:27→20:47)
[2017-10-07] MEDS: DOCUSATE SODIUM 100 MG CAP PO SCH (20:42)
[2017-10-07] MEDS: SENNA 8.6 MG TAB PO SCH (20:43)
[2017-10-07] MEDS: AMIODARONE 200 MG TAB PO SCH (20:46)
[2017-10-07] MEDS: METOPROLOL SUCC 50MG EXT REL TAB PO SCH (20:47)
[2017-10-07] MEDS: CEFAZOLIN IV 2,000 MG in SYRINGE 0 ML IV SCH (20:51)
[2017-10-08] VITALS (7 sets, daily range): BP systolic 135–161; BP diastolic 72–85; PULSE 59–65; TEMP 36.4–36.8; O2SAT 91–96
[2017-10-08] MEDS: KETOROLAC TROMETHAMINE 15 MG/ML VIAL IV. SCH ×5 (03:40→22:19)
[2017-10-08] MEDS: CEFAZOLIN IV 2,000 MG in SYRINGE 0 ML IV SCH (03:40)
[2017-10-08] MEDS: SODIUM CHLORIDE 0.9% 1000ML 1,000 ML IV SCH (03:44)
[2017-10-08] MEDS: ACETAMINOPHEN 500 MG TAB PO SCH ×3 (05:55→22:19)
[2017-10-08 06:43] LABS: HEMATOCRIT 33.1 % (37-47); MEAN CELL VOLUME 87.6 fL (80-100); MEAN CORPUSCULAR HEMOGLOBIN 29.1 pg (25-34); MEAN CORPUSCULAR HGB CONC 33.2 g/dl (32-36); MEAN PLATELET VOLUME 9.9 fL (7.4-10.4); PLATELET COUNT 159 K/uL (130-400); RED CELL DISTRIBUTION WIDTH SD 42.1 fL (36.4-46.3); WHITE BLOOD COUNT 11.73 K/uL (4.8-10.8)
[2017-10-08 07:11] LABS: CALCIUM 7.9 mg/dl (8.5-10.1); CREATININE 0.88 mg/dl (0.60-1.20); POTASSIUM 3.9 mmol/L (3.5-5.1)
[2017-10-08] MEDS: MULTIVITAMIN TAB PO SCH (08:26)
[2017-10-08] MEDS: ASPIRIN 81 MG ECTAB PO SCH (08:26)
[2017-10-08] MEDS: LOSARTAN POTASSIUM 25 MG TAB PO SCH (08:26)
[2017-10-08] MEDS: DOCUSATE SODIUM 100 MG CAP PO SCH ×2 (08:28→22:18)
[2017-10-08] MEDS: METOPROLOL SUCC 50MG EXT REL TAB PO SCH ×2 (08:28→22:19)
--- NOTE | 2017-10-08 09:59 | PROGRESS NOTE ---
DATE: 10/08/2017 CHIEF COMPLAINT: Status post right total knee arthroplasty, postop day #1. PROGRESS: Debby was seen and examined at bedside today. Overall, she is doing fairly well. She is starting to have more soreness in her knee. She has been up and ambulating to the bathroom, but not to the hallways. She has no complaints. PHYSICAL EXAMINATION: RIGHT KNEE: The dressing is clean and dry. Her leg is out in full extension. She has active dorsiflexion and plantarflexion of her right ankle. Sensation is intact. DATA: Shows an H and H today of 11.0 and 33.1. Her glucose is 135. Her vital signs are all stable on room air and she is voiding on her own. She is a little hypertensive. X-rays postoperatively of the right knee showed the prosthesis to be in anatomic alignment without any obstruction, dislocation or loosening. IMPRESSION: Status post right total knee arthroplasty, postop day #1. PLAN: At this point, she is doing fairly well. She is on Coumadin for DVT prophylaxis. She has been up and ambulating today with physical therapy. We will plan to discharge to the home with [facility] tomorrow morning. MEL
[2017-10-08 14:34] LABS: INR 1.1 (0.9-1.1)
[2017-10-08] MEDS ORDERED: WARFARIN SOD 5 MG TAB PO SCH (16:00)
[2017-10-08] MEDS: SENNA 8.6 MG TAB PO SCH (22:18)
[2017-10-08] MEDS: AMIODARONE 200 MG TAB PO SCH (22:25)
[2017-10-09] MEDS: KETOROLAC TROMETHAMINE 15 MG/ML VIAL IV. SCH ×2 (04:10→09:27)
[2017-10-09 05:30] VITALS: BP 169/91; PULSE 60; TEMP 36.4; O2SAT 95
[2017-10-09] MEDS: ACETAMINOPHEN 500 MG TAB PO SCH (06:13)
[2017-10-09 06:16] LABS: INR 1.3 (0.9-1.1)
[2017-10-09] MEDS ORDERED: ULT50X PO (06:16)
--- NOTE | 2017-10-09 06:49 | PROGRESS NOTE ---
DATE: 10/09/2017 CHIEF COMPLAINT: Status post right total knee arthroplasty, postop day #2. PROGRESS: Overall, she is doing fairly well. She has been up and ambulating well with physical therapy. She is having lot of pain and soreness in the knee, but that is her only complaint. She was taking the stool softeners and has had multiple bowel movements. PHYSICAL EXAMINATION: RIGHT KNEE: The incision is open to air. There is a little bit of bloody drainage. Her leg is out to full extension. She has active dorsiflexion, plantarflexion of her right ankle. IMPRESSION: Status post right total knee arthroplasty, postop day #2. PLAN: At this point, she is doing about as well as expected. She is having some soreness in the knee, but she has only taken the IV Toradol and IV Tylenol. She has some tramadol written for pain as well. We will try that before she is discharged to home. She can be discharged to home later this morning with [facility].
--- NOTE | 2017-10-09 06:53 | DISCHARGE SUMMARY ---
DISCHARGE DIAGNOSIS: Primary osteoarthritis of right knee. PROCEDURE: Right total knee arthroplasty on 10/07/2017, by Dr. Hector Oliveira. DISCHARGE INSTRUCTIONS: 1. Tramadol 50-100 mg every 4 hours as needed for pain. 2. Coumadin as directed. Resume preop dose. 3. Amiodarone 200 mg daily. 4. Vitamin C 1000 mg twice a day. 5. Aspirin 81 mg daily. 6. Cozaar 25 mg daily. 7. Toprol 100 mg in the evening and 200 mg in the morning. 8. Crestor 10 mg 4 times a week. 9. Weightbear as tolerated. 10. Follow up with Dr. Oliveira in 2 weeks. 11. Call the office of Dr. Oliveira with any questions or concerns. HOSPITAL COURSE: Debby is a pleasant 82-year-old female who presented to my office with chronic increasing right knee pain. X-rays and clinical examination were diagnostic for primary osteoarthritis of the right knee. After failing conservative treatment, she elected to undergo a right total knee arthroplasty. On 10/07/2017, she arrived at [facility] and underwent a right knee replacement without complication. She had a spinal anesthetic and a right adductor nerve block. Postoperatively, she was started back on her Coumadin and discharged to general orthopedic floor. Her hospital course was uneventful. On postop day #1, her H and H were stable at 11.0 and 33.1. She was up and ambulating well with physical therapy, but she was having some soreness and pain in the knee. Her vital signs were stable and she had a bowel movement. On postop day #2, she continued to do well. Her pain was mostly controlled on the IV Tylenol and ibuprofen. She was subsequently discharged to home with [facility] and the above instructions.
[2017-10-09] MEDS: LOSARTAN POTASSIUM 25 MG TAB PO SCH (08:16)
[2017-10-09] MEDS: MULTIVITAMIN TAB PO SCH (08:17)
[2017-10-09] MEDS: DOCUSATE SODIUM 100 MG CAP PO SCH (08:18)
[2017-10-09] MEDS: ASPIRIN 81 MG ECTAB PO SCH (08:18)
[2017-10-09] MEDS: METOPROLOL SUCC 50MG EXT REL TAB PO SCH (09:26)
[2017-10-09 09:32] VITALS: BP 169/91; PULSE 60; TEMP 36.4; O2SAT 95
== END 2017-10-09 10:54 | disposition home or self-care (01) | DRG 470 ==
LOC: C.ACU 07:54 → C.3E 09:30 → ENRESERV 13:59
PROVIDERS: ADMIT Orthopaedic Surgery; ATTEND Orthopaedic Surgery
PROC: 0SRC0J9 Replacement of Right Knee Joint with Synthetic Substitute, Cemented, Open Approach (ICD-10-PCS; principal; 2017-10-07 11:00)
DX: M17.11 Unilateral primary osteoarthritis, right knee (principal); I50.30 Unspecified diastolic (congestive) heart failure; M21.161 Varus deformity, not elsewhere classified, right knee; M25.461 Effusion, right knee; I48.0 Paroxysmal atrial fibrillation; I11.0 Hypertensive heart disease with heart failure; I25.10 Atherosclerotic heart disease of native coronary artery without angina pectoris; E78.5 Hyperlipidemia, unspecified; E66.9 Obesity, unspecified; Z68.35 Body mass index [BMI] 35.0-35.9, adult; I25.2 Old myocardial infarction; Z95.0 Presence of cardiac pacemaker; Z95.5 Presence of coronary angioplasty implant and graft; Z87.892 Personal history of anaphylaxis; Z79.01 Long term (current) use of anticoagulants; Z79.82 Long term (current) use of aspirin; Z79.899 Other long term (current) drug therapy; Z88.1 Allergy status to other antibiotic agents; Z88.5 Allergy status to narcotic agent; Z88.8 Allergy status to other drugs, medicaments and biological substances; Z91.018 Allergy to other foods

== ENCOUNTER → 2017-10-12 | Outpatient (CLI) | payer OTHER ==
[~2017-10-12] MED LIST changes: -ACETAMINOPHEN 500 MG TAB PO SCH; -BUPIVACAINE 0.5 % 5 MG/1 ML PF 10ML VIAL ONE; -CEFAZOLIN 2000MG IV PUSH 15 ML IV SCH; -FAMOTIDINE 20 MG TAB PO SCH; -GABAPENTIN 300 MG CAP PO SCH; -LACTATED RINGER'S 1000ML 1,000 ML IV SCH; -LACTATED RINGER'S 1000ML 500 ML IV SCH; -ROPIVACAINE 0.5% 5 MG/ML 30 ML VIAL ONE; -ROPIVACAINE 5MG/ML 30 ML 150 MG, BUPIVACAINE 0.5% MPF INJ 30 ML, EpINEphrine HCL INJ 0.... INFIL SCH; +ULT50X PO; -[UNRECOGNIZED DRUG - REMARK] SCH
[2017-10-12 17:52] LABS: HEMATOCRIT 31.5 % (37-47); HEMOGLOBIN 10.3 g/dL (12.0-16.0)
== END | disposition home or self-care (01) ==
LOC: C.LABMFLN 11:40
PROVIDERS: ATTEND Family Medicine
DX: I50.32 Chronic diastolic (congestive) heart failure (principal); R60.9 Edema, unspecified

== ENCOUNTER → 2017-10-17 | Outpatient (CLI) | payer OTHER ==
[2017-10-17 17:45] LABS: HEMATOCRIT 33.8 % (37-47)
[2017-10-17 18:02] LABS: BLOOD UREA NITROGEN 14 mg/dl (7-18); CALCIUM 8.9 mg/dl (8.5-10.1); CARBON DIOXIDE 26 mmol/L (21-32); CREATININE 0.96 mg/dl (0.60-1.20); GLUCOSE 119 mg/dl (70-99); POTASSIUM 3.7 mmol/L (3.5-5.1); SODIUM 136 mmol/L (136-145)
== END | disposition home or self-care (01) ==
LOC: C.LABMFLN 15:15
PROVIDERS: ATTEND Family Medicine
DX: I50.30 Unspecified diastolic (congestive) heart failure (principal); D50.0 Iron deficiency anemia secondary to blood loss (chronic); I50.32 Chronic diastolic (congestive) heart failure

== ENCOUNTER 2021-03-06 02:10 | Observation (INO) ==
[2021-03-06] MEDS ORDERED: NITROGLYCERIN SL 0.4 MG/TAB TAB ONE (02:48)
--- NOTE | 2021-03-06 03:07 | Emergency Department Note ---
Impression & Plan Arm pain, right, Hypertension Admit to the [facility] ED Provider Note NAME: PAT FRANK AGE: 85 SEX: F ARRIVES VIA: Walk-In INFORMANT: Patient ED PROVIDER(S): Carmencita Blake DO CHIEF COMPLAINT: Right arm pain PLAN: Disposition: Patient is being evaluated for admission by the [facility] Condition: Stable MEDICAL DECISION MAKING: This is an 85-year-old female patient with history of hypertension and cardiac disease who presents to the emergency department complaining of right arm pain. The patient had laid down for bed and could not fall asleep because of the discomfort. She had similar symptoms in the left arm a couple of nights ago. The patient was given sublingual nitro which relieved the right arm discomfort and brought the blood pressure down. This is concerning that the discomfort she is having in her arms may be an anginal equivalent. Clearly the patient's blood pressure is not well controlled on her current antihypertensive regimen. EKG reveals a paced rhythm with no signs of ischemia. Troponin is negative. Have discussed the case with the [facility] hospitalist and they will evaluate for further management. Triage Nursing notes reviewed and agree with them. Additional history obtained from the patient's who is at the bedside Prior medical records reviewed Vital Signs: reviewed and remarkable for hypertension Differential diagnosis: Hypertension crisis, cardiac ischemia, anginal equivalent, STEMI ER treatment provided: Sublingual nitro Diagnostics interpreted by me: ECG: Atrial paced rhythm at [address] segment depression in lead I and aVL. There is no ectopy noted Cardiac Monitoring: Paced rhythm at 60 Laboratory studies: See below Imaging studies: As per my interpretation Portable chest x-ray: Cardiomegaly with pacemaker in place no obvious pulmonary pathology HPI: 85/F arrives for evaluation of right arm pain. Patient describes right arm pain that began around 11:30 PM this evening. She had a very similar episode that happened a couple of days ago on her left arm. She states that the pain reminded her of the pain she had when she had her heart attacks in 1999 and 2002. Patient states that she had an episode of significant hypertension 2 to [address] Billings increased her dose of hydrochlorothiazide to 3 tablets 3 times a day. ROS: See above HPI for pertinent positives & negatives. A total of 10 systems reviewed and were otherwise negative. PAST MEDICAL HISTORY:See Below PAST SURGICAL HISTORY:See Below FAMILY HISTORY:See Below SOCIAL HISTORY:See Below HOME MEDICATIONS:See list ALLERGIES:See list VITALS:See Below PHYSICAL EXAMINATION: HEENT: Head - normocephalic and atraumatic. Pupils are equal, round, and reactive to light. Extraocular eye muscles are intact, and sclera are anicteric. Nose - moist nasal mucosa without discharge. Mouth - moist buccal mucosa. Oropharynx is nonerythematous and there is no tonsillar exudate or edema noted. Neck: Supple; no JVD, nuchal rigidity, cervical lymphadenopathy, or auscultated bruits. Heart: Regular rate and rhythm. There is a normal S1 and S2 with no murmurs, clicks, or gallops appreciated. Lungs: Clear to auscultation bilaterally with no wheezes, rales, or rhonchi. Abdomen: Soft, completely nontender, nondistended, with good bowel sounds. There are no palpable pulsatile masses or hepatosplenomegaly. There is no guarding, rigidity, or rebound noted. Extremities: No evidence of cyanosis, clubbing, or edema. There are easily palpable peripheral pulses. There is no reproducible pain with palpation over the right arm or right shoulder and no increased pain with range of motion to the right upper extremity. Skin: warm and dry with good turgor and no rashes. ED COURSE: Times/Reassessments: 225: The patient was evaluated in room C2. A complete history and physical was performed. An order was placed for continuous cardiac monitoring. The patient is in a paced rhythm at a rate of 60. A twelve-lead EKG was obtained as described above. A portable chest x-ray was performed. The patient was given sublingual nitroglycerin. This did relieve the majority of the discomfort in her right arm it brought her pain down to a 2-04/2009. Patient's blood pressure also came down nicely. I did review the results of the laboratory studies and x-ray with the patient and her . I discussed the case with the [facility]ist and they will evaluate for further management. Carmencita Blake DO Past Med/Surg History Medical History Adverse reaction to drug Alopecia Ambulatory dysfunction Bilateral knee pain Brain tumor Breast cancer, right Cerebrovascular [place] disease Close exposure to 2019-nCoV Hearing loss of both ears due to cerumen impaction History of atrial fibrillation Hypertensive urgency Inflammatory arthritis Occipital neuralgia Paroxysmal atrial fibrillation Right ankle sprain Surgical History H/O cardiac radiofrequency ablation H/O right mastectomy H/O total hysterectomy Loose right total knee arthroplasty Pacemaker Family History Other No pertinent family history Social History Smoking Status: Never smoker Hx Alcohol Use: No Hx Substance Use: No Preferred Language: Kazakh Communication Ability: Effective Visual Impairment: No Limitations Hearing Ability: Normal Chicken Cleaner Required: No Beliefs That Will Affect Care: None marital status: Current Living Situation: Spouse 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 , 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 Feels Safe at Home: Yes Childhood Exposure to Second-Hand Smoke: Yes Dental Care, Regularly: Yes Physical Activity Frequency: 5-6 Times per Week Seatbelt Use: always Allergies Allergies Allergy/AdvReac Type Severity Reaction Status Date / Time clindamycin Allergy Severe SHOCK Verified 03/06/21 02:50 clopidogrel Allergy Severe HIVES Verified 03/06/21 02:50 epinephrine Allergy Severe NUMBNESS Verified 03/06/21 02:50 codeine Allergy Unknown UNKNOWN Verified 03/06/21 02:50 ezetimibe Allergy Unknown UNKNOWN Verified 03/06/21 02:50 hydrocodone Allergy Unknown UNKNOWN Verified 03/06/21 02:50 levothyroxine Allergy Unknown UNKNOWN Verified 03/06/21 02:50 metronidazole Allergy Unknown LOSS OF Verified 03/06/21 02:50 PIGMENT IN SKIN. FATIGUE mupirocin Allergy Unknown WEAKNESS,NA Verified 03/06/21 02:50 USEATED oxycodone Allergy Unknown UNKNOWN Verified 03/06/21 02:50 sotalol Allergy Unknown SWOLLEN Verified 03/06/21 02:50 ANKLES/REDNESS ON RIGHT LEG ticlopidine Allergy Unknown RASH Verified 03/06/21 02:50 chocolate flavor Allergy Unknown Verified 03/06/21 02:50 lisinopril Allergy Unknown Verified 03/06/21 02:50 Zmhrdnl-ORU-XoE Reductase AdvReac Unknown ACHY JOINTS Verified 03/06/21 02:50 Inhibitor [Otnlmtd-Mci-Eob Reductase Inhibitor] tramadol AdvReac Nausea Verified 03/06/21 02:50 Home Meds Home Medications Medication Instructions Recorded Confirmed amiodarone 200 mg tablet 200 mg PO DAILY #30 tab 07/24/18 03/06/21 nitroglycerin 0.4 mg sublingual 0.4 mg SL Q5M PRN #25 tab 07/24/18 03/06/21 tablet metoprolol succinate 100 mg 100 mg PO DAILY 09/09/20 03/06/21 tablet,extended release 24 hr epinephrine 0.15 mg/0.3 mL 0.3 ml IM UD PRN 03/06/21 03/06/21 injection,auto-injector Previous Rx's Medication Instructions Recorded triamcinolone acetonide 0.1 % 1 appln TOP BID PRN #30 gm 08/29/18 topical cream cane #1 ea 09/18/18 mastectomy bras C50.911, Z90.11 #6 ea 04/22/20 Stair glide #1 ea 04/28/20 hydralazine 10 mg tablet 10 mg PO TID #90 tab 05/26/20 apixaban 5 mg tablet (Eliquis) 5 mg PO BID #60 tab 08/21/20 rosuvastatin 10 mg tablet 10 mg PO DAILY #30 tab 10/13/20 stair lift #1 ea 10/13/20 mecobalamin (vitamin B12) 1,000 1,000 mcg SUBLINGUAL DAILY #30 tab 10/14/20 mcg disintegrating tablet,sublingual albuterol sulfate 90 mcg/actuation 2 puff INHALATION Q4H PRN #6.7 g 01/05/21 aerosol inhaler benzonatate 100 mg capsule 100 mg PO TID PRN #30 cap 01/06/21 valsartan 320 1 tab PO DAILY #90 tab 02/06/21 mg-hydrochlorothiazide 25 mg tablet potassium chloride 10 mEq 10 meq PO DAILY 30 Days #30 cap 03/06/21 capsule,extended release Results & Data (ED) Vital Signs Vital Signs - 24 hr 03/06/21 02:14 03/06/21 03:45 03/06/21 04:37 Temperature 36.8 C Temperature Source Temporal Artery Scan Pulse Rate 68 Pulse Rate [Right] 65 65 Pulse Rhythm [Right] Respiratory Rate 18 16 18 Respiratory Effort / Characteristics Non-Labored Spontaneous Respiratory Depth Normal Respiratory Pattern Regular Blood Pressure 237/96 H Blood Pressure [Right Arm] 204/99 H 168/78 H Blood Pressure Mean 143 Blood Pressure Mean [Right Arm] 134 108 Blood Pressure Position Sitting Pulse Oximetry 96 98 96 Oxygen Delivery Method Room Air Room Air Room Air Sepsis Recent Fever Within 48 Hours No Sepsis New/Unexplained Change in Mental Status No Sepsis Action Taken by Nursing No Action Required 03/06/21 06:00 Temperature Temperature Source Pulse Rate Pulse Rate [Right] 60 Pulse Rhythm [Right] Regular Respiratory Rate 18 Respiratory Effort / Characteristics Non-Labored Respiratory Depth Normal Respiratory Pattern Blood Pressure Blood Pressure [Right Arm] 186/86 H Blood Pressure Mean Blood Pressure Mean [Right Arm] 119 Blood Pressure Position Pulse Oximetry 96 Oxygen Delivery Method Room Air Sepsis Recent Fever Within 48 Hours Sepsis New/Unexplained Change in Mental Status Sepsis Action Taken by Nursing Laboratory Data Result diagrams: 03/06/21 03:41 03/06/21 03:41 Lab Results 03/06/21 03/06/21 03/06/21 Range/Units 03:41 03:41 03:41 WBC 6.19 (4.8-10.8) K/uL RBC 4.21 (4.2-5.4) M/uL Hgb 12.2 (12.0-16.0) g/dL Hct 37.9 (37-47) % MCV 90.0 (80-100) fL MCH 29.0 (25-34) pg MCHC 32.2 (32-36) g/dL RDW Std Deviation 44.6 (36.4-46.3) fL RDW Coeff of Roma 13.5 (11.5-14.5) % Plt Count 229 (130-400) K/uL MPV 9.6 (7.4-10.4) fL Immature Gran % (Auto) 0.3 % Neut % (Auto) 55.9 % Lymph % (Auto) 25.7 % [place] % (Auto) 13.1 % Eos % (Auto) 4.7 % Baso % (Auto) 0.3 % Neut # (Auto) 3.46 (1.4-6.5) K/uL Lymph # (Auto) 1.59 (1.2-3.4) K/uL [place] # (Auto) 0.81 H (0.11-0.59) K/uL Eos # (Auto) 0.29 (0-0.5) K/uL Baso # (Auto) 0.02 (0-0.2) K/uL Immature Gran # (Auto) 0.02 (0.00-0.02) K/uL ESR 16 (0-30) mm/hr Sodium 138 (136-145) mmol/L Potassium 3.3 L (3.5-5.1) mmol/L Chloride 104 (98-107) mmol/L Carbon Dioxide 26 (21-32) mmol/L Anion Gap 8 (3-11) BUN 20 (6-23) mg/dl Creatinine 0.86 (0.6-1.2) mg/dl Est Cr Clr Drug Dosing 46.5 ml/min Est GFR ( Amer) 71.9 ml/min Est GFR (Non-Af Amer) 62.0 ml/min BUN/Creatinine Ratio 23.3 H (10-20) Glucose 109 H (70-99) mg/dl Calcium 8.9 (8.5-10.1) mg/dl Total Bilirubin 1.0 (0.2-1.0) mg/dl AST 16 (13-39) U/L ALT 12 (7-52) U/L Alkaline Phosphatase 66 (34-104) U/L Troponin I < 0.03 (0-0.04) ng/ml Total Protein 6.4 (6.0-8.3) gm/dl Albumin 3.9 (3.4-5.0) gm/dl Globulin 2.5 (2.5-4.0) gm/dl Albumin/Globulin Ratio 1.6 (0.9-2) Lipase 38 (11-82) U/L SARS-CoV-2, RNA, NAAT (NEGATIVE) 03/06/21 Range/Units 05:12 WBC (4.8-10.8) K/uL RBC (4.2-5.4) M/uL Hgb (12.0-16.0) g/dL Hct (37-47) % MCV (80-100) fL MCH (25-34) pg MCHC (32-36) g/dL RDW Std Deviation (36.4-46.3) fL RDW Coeff of Roma (11.5-14.5) % Plt Count (130-400) K/uL MPV (7.4-10.4) fL Immature Gran % (Auto) % Neut % (Auto) % Lymph % (Auto) % [place] % (Auto) % Eos % (Auto) % Baso % (Auto) % Neut # (Auto) (1.4-6.5) K/uL Lymph # (Auto) (1.2-3.4) K/uL [place] # (Auto) (0.11-0.59) K/uL Eos # (Auto) (0-0.5) K/uL Baso # (Auto) (0-0.2) K/uL Immature Gran # (Auto) (0.00-0.02) K/uL ESR (0-30) mm/hr Sodium (136-145) mmol/L Potassium (3.5-5.1) mmol/L Chloride (98-107) mmol/L Carbon Dioxide (21-32) mmol/L Anion Gap (3-11) BUN (6-23) mg/dl Creatinine (0.6-1.2) mg/dl Est Cr Clr Drug Dosing ml/min Est GFR ( Amer) ml/min Est GFR (Non-Af Amer) ml/min BUN/Creatinine Ratio (10-20) Glucose (70-99) mg/dl Calcium (8.5-10.1) mg/dl Total Bilirubin (0.2-1.0) mg/dl AST (13-39) U/L ALT (7-52) U/L Alkaline Phosphatase (34-104) U/L Troponin I (0-0.04) ng/ml Total Protein (6.0-8.3) gm/dl Albumin (3.4-5.0) gm/dl Globulin (2.5-4.0) gm/dl Albumin/Globulin Ratio (0.9-2) Lipase (11-82) U/L SARS-CoV-2, RNA, NAAT NEGATIVE (NEGATIVE) Administered Medications Amiodarone HCl (Amiodarone 200 Mg Tab) 200 mg PO DAILY [facility] Stop: 04/05/21 09:30 Last Admin: 03/06/21 10:57 Dose: 200 mg Documented by: [id number] Apixaban (Apixaban 5 Mg Tablet) 5 mg PO BID [facility] Stop: 04/05/21 09:30 Last Admin: 03/06/21 10:57 Dose: 5 mg Documented by: [id number] Hydralazine HCl (Hydralazine 10 Mg Tab) 10 mg PO TID ST[facility] Stop: 04/05/21 09:30 Last Admin: 03/06/21 10:58 Dose: 10 mg Documented by: [id number] Hydrochlorothiazide (Hydrochlorothiazide 25 Mg Tab) 25 mg PO DAILY STEFAN[facility] Stop: 04/05/21 09:30 Last Admin: 03/06/21 10:59 Dose: 25 mg Documented by: [id number] Metoprolol Succinate (Metoprolol Succ 50mg Ext Rel Tab) 100 mg PO DAILY STEFANIE Stop: 04/05/21 09:30 Last Admin: 03/06/21 11:00 Dose: 50 mg Documented by: [id number] Rosuvastatin Calcium (Rosuvastatin Calcium 10 Mg Tab) 10 mg PO DAILY ST[facility] Stop: 04/05/21 09:30 Last Admin: 03/06/21 11:03 Dose: 10 mg Documented by: [id number] Valsartan (Valsartan 80 Mg Tab) 320 mg PO DAILY [facility] Stop: 04/05/21 09:30 Last Admin: 03/06/21 11:04 Dose: 320 mg Documented by: [id number] Discontinued Medications Nitroglycerin (Nitroglycerin Sl 0.4 Mg/Tab Tab) Confirm Administered Dose 0.8 mg .ROUTE .STK-MED [facility] Stop: 03/06/21 02:49 Last Admin: 03/06/21 03:04 Dose: Not Given Documented by: [id number] Nitroglycerin (Nitroglycerin Sl 0.4 Mg/Tab Tab) 0.4 mg SL NOW STA Stop: 03/06/21 03:10 Last Admin: 03/06/21 03:09 Dose: 0.4 mg Documented by: [id number] Potassium Chloride (Potassium Chloride Crtab 20 Meq Tabcr) 40 meq PO NOW STA Stop: 03/06/21 06:11 Last Admin: 03/06/21 06:28 Dose: 40 meq Documented by: [id number] Imaging Data Radiologist's Impression: Chest X-Ray 03/06/21 02:48 SINGLE VIEW CHEST CLINICAL HISTORY: Atypical chest pain. FINDINGS: An AP, portable, upright chest radiograph is obtained. No prior studies are available for comparison at the time of dictation. A 2-lead cardiac pacemaker is in place. The heart is enlarged noting atherosclerotic calcification of the thoracic aorta. The pulmonary vasculature is noncongested. Nonspecific interstitial thickening is likely chronic. Bibasilar opacities likely represent scarring/atelectasis. No large pleural effusion or pneumothorax is seen. The skeletal structures are osteopenic. There is a healed right posterior rib fracture. IMPRESSION: 1. Cardiomegaly and cardiac pacemaker with no radiographic evidence of congestive failure. 2. Mild bibasilar opacities likely represent scarring/atelectasis. Clinical correlation will be required. ACT 112: Negative or not required by law. Electronically signed by: Waldo Wilson M.D. 03/06/2021 5:26 AM Discharge Plan Visit Data Chief Complaint: Arm Pain Stated Complaint: PAIN DOWN RIGHT ARM ED Provider: Carmencita Blake Discharge Problem: Arm pain, right, Hypertension Patient Disposition: Admitted As Inpatient Discharge Instructions Interventions: ED Discharge Assessment Last Done: 03/06/21 09:35 Discharge Problem: Hypertension Qualifiers: Hypertension type: unspecified secondary hypertension Qualified Code(s): I15.9 - Secondary hypertension, unspecified
[2021-03-06] MEDS ORDERED: NITROGLYCERIN SL 0.4 MG/TAB TAB SL STA (03:09)
[2021-03-06 04:00] LABS: Basophils # (auto) 0.02 K/uL (0-0.2); Basophils % (auto) 0.3 %; Eosinophils # (auto) 0.29 K/uL (0-0.5); Eosinophils % (auto) 4.7 %; Hematocrit (blood only) 37.9 % (37-47); Hemoglobin 12.2 g/dL (12.0-16.0); Immature Granulocytes # (auto) 0.02 K/uL (0.00-0.02); Immature Granulocytes % (auto) 0.3 %; Lymphocytes # (auto) 1.59 K/uL (1.2-3.4); Lymphocytes % (auto) 25.7 %; Mean Corpuscular Hgb Conc 32.2 g/dL (32-36); Mean Platelet Volume 9.6 fL (7.4-10.4); Monocytes # (auto) 0.81 K/uL (0.11-0.59); Monocytes % (auto) 13.1 %; Neutrophils # (auto) 3.46 K/uL (1.4-6.5); Neutrophils % (auto) 55.9 %; Platelet Count 229 K/uL (130-400); RDW Coefficient of Variation 13.5 % (11.5-14.5); RDW Standard Deviation 44.6 fL (36.4-46.3); Red Blood Count 4.21 M/uL (4.2-5.4); White Blood Count 6.19 K/uL (4.8-10.8)
[2021-03-06 04:21] LABS: Alanine Aminotransferase 12 U/L (7-52); Albumin Globulin Ratio 1.6 (0.9-2); Albumin Level 3.9 gm/dl (3.4-5.0); Alkaline Phosphatase 66 U/L (34-104); Anion Gap 8 (3-11); Aspartate Aminotransferase 16 U/L (13-39); BUN Creatinine Ratio 23.3 (10-20); Blood Urea Nitrogen 20 mg/dl (6-23); Calcium 8.9 mg/dl (8.5-10.1); Carbon Dioxide 26 mmol/L (21-32); Chloride 104 mmol/L (98-107); Creatinine Clr Calc Pharmacy 46.5 ml/min; Est GFR (African American) 71.9 ml/min; Globulin 2.5 gm/dl (2.5-4.0); Glucose 109 mg/dl (70-99); Lipase 38 U/L (11-82); Potassium 3.3 mmol/L (3.5-5.1); Sodium 138 mmol/L (136-145); Total Protein 6.4 gm/dl (6.0-8.3)
[2021-03-06 04:41] LABS: Troponin I < 0.03 ng/ml (0-0.04)
--- NOTE | 2021-03-06 05:28 | XRay Report ---
SINGLE VIEW CHEST CLINICAL HISTORY: Atypical chest pain. FINDINGS: An AP, portable, upright chest radiograph is obtained. No prior studies are available for c omparison at the time of dictation. A 2-lead cardiac pacemaker is in place. The heart is enlarged not ing atherosclerotic calcification of the thoracic aorta. The pulmonary vasculature is noncongested. N onspecific interstitial thickening is likely chronic. Bibasilar opacities likely represent scarring/a telectasis. No large pleural effusion or pneumothorax is seen. The skeletal structures are osteopenic . There is a healed right posterior rib fracture. IMPRESSION: 1. Cardiomegaly and cardiac pacemaker with no radiographic evidence of congestive failure. 2. Mild bibasilar opacities likely represent scarring/atelectasis. Clinical correlation will be requi red. ACT 112: Negative or not required by law. Electronically signed by: Waldo Wilson M.D. 03/06/2021 5:26 AM
[2021-03-06] MEDS ORDERED: POTASSIUM CHLORIDE CRTAB 20 MEQ TABCR PO STA (06:10)
--- NOTE | 2021-03-06 06:33 | History & Physical Report ---
Date of Service March 06, 2021 Assessment & Plan (1) Arm pain: Plan: 85yo female presenting with arm pain occurring at night over the last 3 nights, left arm x 2 nights and right arm last night. Feeling of near syncope tonight. Uncertain cause at this time. Patient does have a history of CAD with two prior MA's - uncertain if this discomfort represents anginal equivalent? Pain is reproducible with palpation of humerus. 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 Anticoagulated on Apixaban -Continue Metoprolol 100mg po daily -Continue Amiodarone -Continue Apixaban (4) Hyperlipidemia: Plan: Chronic -Continue Rosuvastatin 10mg po daily (5) Hypertension: Plan: Blood pressure markedly elevated. Patient reports wide fluctuation in blood pressure at home. She is compliant with her medications. Denies anxiety, pain -Continue Metoprolol -Continue Hydralazine -Continue Valsartan/HCTZ -Monitor History of Present Illness Chief Complaint: arm pain Primary Care Provider: Waldo Armstrong MD Debby Prather is a pleasant 85yo female with history of prior right sided breast cancer, poorly controlled HTN, PAF on Apixaban anticoagulation and CAD s/p MA in 1999 and 2002 presenting with severe arm discomfort. Patient developed pain in the left arm x 2 nights - painful aching, 6/10 in severity. Last night she developed a similar pain in the right arm - 6/10 in severity, painful aching. No chest pain, SOB nausea or diaphoresis. She did experience a brief feeling of near syncope during the painful episode. No trauma, falls, change in activity, lifting. Pain is not positional. Patient reports full range of motion with no muscular weakness. She has never experienced the pain during the day. Patient has been very sedentary over the last 1.5 years due to occipital neuralgia. She denies pain with activity or exertion. Denies fever, chills, cough, SOB, abdominal pain, nausea, vomiting, diarrhea. On arrival to the ER patient markedly hypertensive at 237/96. Nitroglycerine was administered with improvement in blood pressure and resolution of arm pain. Concern for anginal equivalent ER course: Nitro 0.4mg Allergies Allergy/AdvReac Type Severity Reaction Status Date / Time clindamycin Allergy Severe SHOCK Verified 03/06/21 02:50 clopidogrel Allergy Severe HIVES Verified 03/06/21 02:50 epinephrine Allergy Severe NUMBNESS Verified 03/06/21 02:50 codeine Allergy Unknown UNKNOWN Verified 03/06/21 02:50 ezetimibe Allergy Unknown UNKNOWN Verified 03/06/21 02:50 hydrocodone Allergy Unknown UNKNOWN Verified 03/06/21 02:50 levothyroxine Allergy Unknown UNKNOWN Verified 03/06/21 02:50 metronidazole Allergy Unknown LOSS OF Verified 03/06/21 02:50 PIGMENT IN SKIN. FATIGUE mupirocin Allergy Unknown WEAKNESS,NA Verified 03/06/21 02:50 USEATED oxycodone Allergy Unknown UNKNOWN Verified 03/06/21 02:50 sotalol Allergy Unknown SWOLLEN Verified 03/06/21 02:50 ANKLES/REDNESS ON RIGHT LEG ticlopidine Allergy Unknown RASH Verified 03/06/21 02:50 chocolate flavor Allergy Unknown Verified 03/06/21 02:50 lisinopril Allergy Unknown Verified 03/06/21 02:50 Ungxsfb-XIM-RoP Reductase AdvReac Unknown ACHY JOINTS Verified 03/06/21 02:50 Inhibitor [Ormiull-Yoh-Lln Reductase Inhibitor] tramadol AdvReac Nausea Verified 03/06/21 02:50 Home Medications Medication Instructions Recorded Confirmed Type amiodarone 200 mg tablet 200 mg PO DAILY #30 tab 07/24/18 03/06/21 History nitroglycerin 0.4 mg sublingual 0.4 mg SL Q5M PRN #25 tab 07/24/18 03/06/21 History tablet triamcinolone acetonide 0.1 % 1 appln TOP BID PRN #30 gm 08/29/18 03/06/21 Rx topical cream cane #1 ea 09/18/18 02/18/21 Rx mastectomy bras C50.911, Z90.11 #6 ea 04/22/20 02/18/21 Rx Stair glide #1 ea 04/28/20 02/18/21 Rx hydralazine 10 mg tablet 10 mg PO TID #90 tab 05/26/20 03/06/21 Rx apixaban 5 mg tablet (Eliquis) 5 mg PO BID #60 tab 08/21/20 03/06/21 Rx metoprolol succinate 100 mg 100 mg PO DAILY 09/09/20 03/06/21 History tablet,extended release 24 hr rosuvastatin 10 mg tablet 10 mg PO DAILY #30 tab 10/13/20 03/06/21 Rx stair lift #1 ea 10/13/20 02/18/21 Rx mecobalamin (vitamin B12) 1,000 1,000 mcg SUBLINGUAL DAILY #30 tab 10/14/20 03/06/21 Rx mcg disintegrating tablet,sublingual albuterol sulfate 90 mcg/actuation 2 puff INHALATION Q4H PRN #6.7 g 01/05/21 03/06/21 Rx aerosol inhaler benzonatate 100 mg capsule 100 mg PO TID PRN #30 cap 01/06/21 03/06/21 Rx valsartan 320 1 tab PO DAILY #90 tab 02/06/21 03/06/21 Rx mg-hydrochlorothiazide 25 mg tablet epinephrine 0.15 mg/0.3 mL 0.3 ml IM UD PRN 03/06/21 03/06/21 History injection,auto-injector Past Med/Surg History Medical History Adverse reaction to drug Alopecia Ambulatory dysfunction Bilateral knee pain Brain tumor Breast cancer, right Cerebrovascular [place] disease Close exposure to 2018- Hearing loss of both ears due to cerumen impaction History of atrial fibrillation Hypertensive urgency Inflammatory arthritis Occipital neuralgia Paroxysmal atrial fibrillation Right ankle sprain Surgical History H/O cardiac radiofrequency ablation H/O right mastectomy H/O total hysterectomy Loose right total knee arthroplasty Pacemaker Family History Other No pertinent family history Social History Smoking Status: Never smoker Hx Alcohol Use: No Hx Substance Use: No Preferred Language: Bengali Communication Ability: Effective Visual Impairment: No Limitations Hearing Ability: Normal Head Of Sales Required: No Beliefs That Will Affect Care: None marital status: Current Living Situation: Spouse 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 , 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 Feels Safe at Home: Yes Childhood Exposure to Second-Hand Smoke: Yes Dental Care, Regularly: Yes Physical Activity Frequency: 5-6 Times per Week Seatbelt Use: always Review of Systems Review of Systems: All systems reviewed & are unremarkable except as noted in HPI & below Physical Exam Physical Exam: General: patient resting comfortably, NAD, non-toxic in appearance, AA&O x 4 Skin: warm, dry, intact, no rashes or lesions HEENT: NC/AT, PERRL, EOMI, anicteric sclera, conjunctiva without injection, external ear normal to inspection and nontender, nares patent, moist mucus membranes, dentition intact, no oropharyngeal lesions, neck supple, trachea midline, no LAD, no thyromegaly, no JVD Heart: +S1/S2, regular, no m/r/g, pacer in place Lungs: equal air entry bilaterally, no rales/rhonchi/wheezes Abd: +BS, soft, NT/ND, no masses/organomegaly/ascites Ext: warm, 2+ pulses in UE/LE bilaterally, no clubbing/cyanosis, RUE with edema (baseline per patient since breast cancer). No pain with palpation of the cervical or thoracic spine or shoulder. +Pain with palpation of right humerus, some discomfort with palpation of left humerus as well Neuro: nonfocal, patient AA&O x 4, speech intact, no facial droop, moving all extremities on command with equal strength 5/5 Results & Data Results & Data ([facility]) Vital Signs (Past 12 Hours) Vital Signs Temp Pulse Pulse Resp BP BP Pulse Ox 03/06/21 04:37 65 18 168/78 H 96 03/06/21 03:45 65 16 204/99 H 98 03/06/21 02:14 36.8 C 68 18 237/96 H 96 Laboratory Results Laboratory Results WBC 6.19 K/uL (4.8-10.8) 03/06/21 03:41 RBC 4.21 M/uL (4.2-5.4) 03/06/21 03:41 Hgb 12.2 g/dL (12.0-16.0) 03/06/21 03:41 Hct 37.9 % (37-47) 03/06/21 03:41 MCV 90.0 fL (80-100) 03/06/21 03:41 MCH 29.0 pg (25-34) 03/06/21 03:41 MCHC 32.2 g/dL (32-36) 03/06/21 03:41 RDW Std Deviation 44.6 fL (36.4-46.3) 03/06/21 03:41 RDW Coeff of [place] 13.5 % (11.5-14.5) 03/06/21 03:41 Plt Count 229 K/uL (130-400) 03/06/21 03:41 MPV 9.6 fL (7.4-10.4) 03/06/21 03:41 Immature Gran % (Auto) 0.3 % 03/06/21 03:41 Neut % (Auto) 55.9 % 03/06/21 03:41 Lymph % (Auto) 25.7 % 03/06/21 03:41 Ralls % (Auto) 13.1 % 03/06/21 03:41 Eos % (Auto) 4.7 % 03/06/21 03:41 Baso % (Auto) 0.3 % 03/06/21 03:41 Neut # (Auto) 3.46 K/uL (1.4-6.5) 03/06/21 03:41 Lymph # (Auto) 1.59 K/uL (1.2-3.4) 03/06/21 03:41 Ralls # (Auto) 0.81 K/uL (0.11-0.59) H 03/06/21 03:41 Eos # (Auto) 0.29 K/uL (0-0.5) 03/06/21 03:41 Baso # (Auto) 0.02 K/uL (0-0.2) 03/06/21 03:41 Immature Gran # (Auto) 0.02 K/uL (0.00-0.02) 03/06/21 03:41 Sodium 138 mmol/L (136-145) 03/06/21 03:41 Potassium 3.3 mmol/L (3.5-5.1) L 03/06/21 03:41 Chloride 104 mmol/L (98-107) 03/06/21 03:41 Carbon Dioxide 26 mmol/L (21-32) 03/06/21 03:41 Anion Gap 8 (3-11) 03/06/21 03:41 BUN 20 mg/dl (6-23) 03/06/21 03:41 Creatinine 0.86 mg/dl (0.6-1.2) 03/06/21 03:41 Est Cr Clr Drug Dosing 46.5 ml/min 03/06/21 03:41 Est GFR ( Amer) 71.9 ml/min 03/06/21 03:41 Est GFR (Non-Af Amer) 62.0 ml/min 03/06/21 03:41 BUN/Creatinine Ratio 23.3 (10-20) H 03/06/21 03:41 Glucose 109 mg/dl (70-99) H 03/06/21 03:41 Calcium 8.9 mg/dl (8.5-10.1) 03/06/21 03:41 Total Bilirubin 1.0 mg/dl (0.2-1.0) 03/06/21 03:41 AST 16 U/L (13-39) 03/06/21 03:41 ALT 12 U/L (7-52) 03/06/21 03:41 Alkaline Phosphatase 66 U/L (34-104) 03/06/21 03:41 Troponin I < 0.03 ng/ml (0-0.04) 03/06/21 03:41 Total Protein 6.4 gm/dl (6.0-8.3) 03/06/21 03:41 Albumin 3.9 gm/dl (3.4-5.0) 03/06/21 03:41 Globulin 2.5 gm/dl (2.5-4.0) 03/06/21 03:41 Albumin/Globulin Ratio 1.6 (0.9-2) 03/06/21 03:41 Lipase 38 U/L (11-82) 03/06/21 03:41 SARS-CoV-2, RNA, NAAT NEGATIVE (NEGATIVE) 03/06/21 05:12 Impressions Chest X-Ray 03/06/21 02:48 SINGLE VIEW CHEST CLINICAL HISTORY: Atypical chest pain. FINDINGS: An AP, portable, upright chest radiograph is obtained. No prior studies are available for comparison at the time of dictation. A 2-lead cardiac pacemaker is in place. The heart is enlarged noting atherosclerotic calcification of the thoracic aorta. The pulmonary vasculature is noncongested. Nonspecific interstitial thickening is likely chronic. Bibasilar opacities likely represent scarring/atelectasis. No large pleural effusion or pneumothorax is seen. The skeletal structures are osteopenic. There is a healed right posterior rib fracture. IMPRESSION: 1. Cardiomegaly and cardiac pacemaker with no radiographic evidence of congestive failure. 2. Mild bibasilar opacities likely represent scarring/atelectasis. Clinical correlation will be required. ACT 112: Negative or not required by law. Electronically signed by: Waldo Wilson M.D. 03/06/2021 5:26 AM ECG Additional Comments: Atrial paced at 60, prolonged AV conduction, nonspecific ST changes, no previous EKGs. Code Status & VTE Plan VTE Prophylaxis Plan VTE Prophylaxis will be ordered: Yes PG Care Time/CCT Total # of Minutes Spent Total Time Spent with Patient: Total time spent is greater than 50% in coordination of care (as documented) at patient's floor/unit and/or counseling patient: Coding Level of Care Code INT OBSERVATION CARE 70M LVL 3 Diagnoses Hypokalemia E87.6 Paroxysmal atrial fibrillation I48.0 Hyperlipidemia E78.5 Hypertension I10 Arm pain M79.603
--- NOTE | 2021-03-06 07:12 | XRay Report ---
XR shoulder RT min 2V routine, XR humerus RT 2V HISTORY: 85 years-old Female pain acute pain of the right shoulder without reported trauma COMPARISON: Chest radiograph of same day TECHNIQUE: 2 views of the right humerus with 2 views of the right shoulder FINDINGS: SHOULDER: Demineralized appearance of the bones. Moderate glenohumeral and AC joint osteoarthritis. There is no acute fracture, dislocation or opaque foreign body. Healed chronic right-sided rib fractures. Partia lly imaged pacer leads. HUMERUS: No acute fracture or dislocation. IMPRESSION: No acute fracture or dislocation. ACT 112: Negative or not required by law. The above report was generated using voice recognition software. It may contain grammatical, syntax o r spelling errors. Electronically signed by: Toñito Sanchez M.D. 03/06/2021 7:11 AM
[2021-03-06] MEDS ORDERED: ROSUVASTATIN CALCIUM 10 MG TAB PO SCH (09:31)
[2021-03-06] MEDS ORDERED: hydroCHLOROthiazide 25 MG TAB PO SCH (09:31)
[2021-03-06] MEDS ORDERED: AMIODARONE 200 MG TAB PO SCH (09:31)
[2021-03-06] MEDS ORDERED: ONDANSETRON INJ 2 MG/ML 2 ML VIAL IV PRN (09:31)
[2021-03-06] MEDS ORDERED: NITROGLYCERIN SL 0.4 MG/TAB TAB SL PRN (09:31)
[2021-03-06] MEDS ORDERED: VALSARTAN 80 MG TAB PO SCH (09:31)
[2021-03-06] MEDS ORDERED: APIXABAN 5 MG TABLET PO SCH (09:31)
[2021-03-06] MEDS ORDERED: ALBUTEROL HFA 8 GM INHALER INH PRN (09:31)
[2021-03-06] MEDS ORDERED: BENZONATATE 100 MG CAPSULE PO PRN (09:31)
[2021-03-06] MEDS ORDERED: ACETAMINOPHEN 325 MG TAB PO PRN (09:31)
[2021-03-06] MEDS ORDERED: METOPROLOL SUCC 50MG EXT REL TAB PO SCH (09:31)
[2021-03-06] MEDS: hydrALAZINE 10 MG TAB PO SCH ×2 (10:58→15:52)
--- NOTE | 2021-03-06 11:45 | Discharge Summary ---
Date of Service March 06, 2021 Admission HPI Per Admitting Provider Debby Prather is a pleasant 85yo female with history of prior right sided breast cancer, poorly controlled HTN, PAF on Apixaban anticoagulation and CAD s/p AR in 1999 and 2002 presenting with severe arm discomfort. Patient developed pain in the left arm x 2 nights - painful aching, 6/10 in severity. Last night she developed a similar pain in the right arm - 6/10 in severity, painful aching. No chest pain, SOB nausea or diaphoresis. She did experience a brief feeling of near syncope during the painful episode. No trauma, falls, change in activity, lifting. Pain is not positional. Patient reports full range of motion with no muscular weakness. She has never experienced the pain during the day. Patient has been very sedentary over the last 1.5 years due to occipital neuralgia. She denies pain with activity or exertion. Denies fever, chills, cough, SOB, abdominal pain, nausea, vomiting, diarrhea. On arrival to the ER patient markedly hypertensive at 237/96. Nitroglycerine was administered with improvement in blood pressure and resolution of arm pain. Concern for anginal equivalent ER course: Nitro 0.4mg Admission Exam Per Admitting Provider General: patient resting comfortably, NAD, non-toxic in appearance, AA&O x 4 Skin: warm, dry, intact, no rashes or lesions HEENT: NC/AT, PERRL, EOMI, anicteric sclera, conjunctiva without injection, external ear normal to inspection and nontender, nares patent, moist mucus membranes, dentition intact, no oropharyngeal lesions, neck supple, trachea midline, no LAD, no thyromegaly, no JVD Heart: +S1/S2, regular, no m/r/g, pacer in place Lungs: equal air entry bilaterally, no rales/rhonchi/wheezes Abd: +BS, soft, NT/ND, no masses/organomegaly/ascites Ext: warm, 2+ pulses in UE/LE bilaterally, no clubbing/cyanosis, RUE with edema (baseline per patient since breast cancer). No pain with palpation of the cervical or thoracic spine or shoulder. +Pain with palpation of right humerus, some discomfort with palpation of left humerus as well Neuro: nonfocal, patient AA&O x 4, speech intact, no facial droop, moving all extremities on command with equal strength 5/5 Principal Diagnosis CP rule out, MSK arm pain Discharge Exam General: No acute distress HEENT: Normocephalic atraumatic Neck: No significant lymphadenopathy, trachea midline, normal to visual inspection Cardiac: Regular rate and rhythm, normal S1, normal S2, I did not appreciated any significant murmurs rubs or gallops, I did not appreciate any significant pedal edema, No calf tenderness, capillary refill is less than 3 seconds Respiratory: Clear to auscultation bilaterally with symmetrical chest rise, I did not appreciate any significant wheezes, rales, rhonchi, no increased work of breathing GI: Normal bowel sounds, soft, nontender in all 4 quadrants, nondistended MSK: No sensory or motor changes, moves all extremities without issue, extremities are warm and well-perfused Skin: [place], clean, dry, intact. Neuro: Alert and oriented x4 Psych: Calm, cooperative, logical thought process Discharge Data Allergies Allergy/AdvReac Type Severity Reaction Status Date / Time clindamycin Allergy Severe SHOCK Verified 03/06/21 02:50 clopidogrel Allergy Severe HIVES Verified 03/06/21 02:50 epinephrine Allergy Severe NUMBNESS Verified 03/06/21 02:50 codeine Allergy Unknown UNKNOWN Verified 03/06/21 02:50 ezetimibe Allergy Unknown UNKNOWN Verified 03/06/21 02:50 hydrocodone Allergy Unknown UNKNOWN Verified 03/06/21 02:50 levothyroxine Allergy Unknown UNKNOWN Verified 03/06/21 02:50 metronidazole Allergy Unknown LOSS OF Verified 03/06/21 02:50 PIGMENT IN SKIN. FATIGUE mupirocin Allergy Unknown WEAKNESS,NA Verified 03/06/21 02:50 USEATED oxycodone Allergy Unknown UNKNOWN Verified 03/06/21 02:50 sotalol Allergy Unknown SWOLLEN Verified 03/06/21 02:50 ANKLES/REDNESS ON RIGHT LEG ticlopidine Allergy Unknown RASH Verified 03/06/21 02:50 chocolate flavor Allergy Unknown Verified 03/06/21 02:50 lisinopril Allergy Unknown Verified 03/06/21 02:50 Hwtjxlm-FLF-XnT Reductase AdvReac Unknown ACHY JOINTS Verified 03/06/21 02:50 Inhibitor [Tqpjrkv-Hpn-Rwj Reductase Inhibitor] tramadol AdvReac Nausea Verified 03/06/21 02:50 Consultations 03/06/21 05:42 ED Decision to Admit Stat Hospital Course (1) Arm pain: 85yo female presenting with arm pain occurring at night over the last 3 nights, left arm x 2 nights and right arm last night. Feeling of near syncope tonight. Uncertain cause at this time. Patient does have a history of CAD with two prior AR's - uncertain if this discomfort represents anginal equivalent. Trops neg, neg ekg pains, no chest presssure/ chest pain. -Xray shoulder and humerus negative -Telemetry monitoring, no si/sx arrythmia -Pain is reproducible with palpation of humerus. ?bone pain, ?referred pain from shoulder or thoracic spine. Suspect MSK/ deconditioning. 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 Anticoagulated on Apixaban -Continued Metoprolol 100mg po daily -Continued Amiodarone -Continued Apixaban (4) Hyperlipidemia: Chronic -Continued Rosuvastatin 10mg po daily (5) Hypertension: Blood pressure markedly elevated. Patient reports wide fluctuation in blood pressure at home. She is compliant with her medications. Denies anxiety, pain. Per review of record appears as if pt has white coat hypertension and wode variations in BP. Outpt cards recommending accepting elevated BP's as more aggressive medication regimen has led to episodes of hypotension. -Continued Metoprolol -Continued Hydralazine -Continued Valsartan/HCTZ -Monitor Total Time Total Time Spent Total Time Spent (In Minutes): 43 Discharge Plan Discharge Items Patient Disposition: Home - Self-Care Reason For Visit: ARM PAIN Discharge Diagnosis: CP rule out, MSK arm pain Activity: Resume your previous activity Non-emergency contact: Primary Care Provider Call non-emergency contact if: your symptoms worsen Follow-up/Referrals: Waldo Armstrong MD [Primary Care Provider] - Diet: Heart Healthy Ambulatory Orders: Basic Metabolic Panel (Routine) Timeframe: [id number] Location: Determined by Patient Ordered By: Calvin Watkins Attending Provider Instructions: Care instructions: You were admitted to [facility] for treatment of bilateral arm pain and chest pain. While hospitalized you were evaluated for any cardiac causes of your pain. Your EKGs were negative, troponins were negative, and there is no indication of a cardiac etiology of your pain. After further discussion and review your history it appears as if you have been inactive for extended period of time leading to generalized deconditioning. We suspect that in your day-to-day activities he may have overworked your muscles. We recommend primary care physician evaluation for deconditioning and referral to physical therapy. You have been started on a daily potassium pill on discharge 10 mEq. We have also ordered a repeat basic metabolic profile to be performed 3 days after discharge. We recommend you discuss the results with your primary care provider and if indicated increase or stop potassium supplementation. A discharge summary will be sent to your primary care physician to ensure continuity of care. Please bring this discharge summary with you to your next office appointment so that your provider can review it at that time. Follow-up appointments: - Keep all your follow-up appointments as already scheduled. If you cannot make an appointment, notify your provider. - Please call to request a follow-up appointment with your primary care physician within one week of discharge. Please let us know if you are unable to obtain an appointment Follow-up labs: - Please go to a lab nearest you and obtain the requested lab work. Please have this completed at least 3 hours before your doctor's appointment (or the day before your appointment if possible). Medications: - Your medication list has been reviewed and reconciled upon discharge to ensure accuracy and continuity of care. - You are provided with a list of all your current medications at this time. Please review this list closely and make note of any changes. - Please take all of your medications exactly as prescribed. - Tell your primary care provider if you cannot afford your medications. - Call your primary care provider if you are having any side effects or any other problems. - Call your primary care provider before taking any over the counter medications or supplements, including herbals and vitamins, because some of these may interact with your current medications and/or make your symptoms worse. Symptoms: Please call your primary care provider for symptoms including, but not limited to: fevers (temperatures greater than 100.4), chills, intractable nausea or vomiting, diarrhea, rash, shortness of breath, bleeding, pain, or if you experie nce any worsening of the symptoms that brought you to the hospital. For EMERGENCY and VERY SERIOUS health-related issues, such as chest pain, shortness of breath, or sudden onset of the symptoms that brought you to the hospital, you may need to call 911 or go directly to the Emergency Room It has been our privilege to take care of you during your hospital stay. And Above All Else Feel Better! Best Wishes, Calvin Lyman MD PGY2 Resident, Family & Community Medicine [facility] - [address], [address] MC: [address] [place] [address], [place] [address] Pending Studies at Discharge: No Stand-Alone Forms: My [facility], Smoking Cessation Medications and DC Order Prescriptions: New potassium chloride 10 mEq capsule, extended release 10 meq PO DAILY 30 Days Qty: 30 RF: 0 Continued (DME) mastectomy bras C50.911, Z90.11 See Rx Instructions .Route .MEDSUPPLY Qty: 6 RF: 0 hydralazine 10 mg tablet 10 mg PO TID Qty: 90 RF: 5 Eliquis 5 mg tablet 5 mg PO BID Qty: 60 RF: 5 mecobalamin (vitamin B12) 1,000 mcg tablet,disintegrating 1,000 mcg sublingual DAILY Qty: 30 RF: 11 benzonatate 100 mg capsule 100 mg PO TID PRN (Reason: cough) Qty: 30 RF: 2 valsartan-hydrochlorothiazide 320-25 mg tablet 1 tab PO DAILY Qty: 90 RF: 3 triamcinolone acetonide 0.1 % cream 1 appln TOP BID PRN (Reason: dry skin) Qty: 30 RF: 3 (DME) Stair glide See Rx Instructions .Route .MEDSUPPLY Qty: 1 RF: 0 rosuvastatin 10 mg tablet 10 mg PO DAILY Qty: 30 RF: 5 (DME) stair lift See Rx Instructions .Route .MEDSUPPLY Qty: 1 RF: 0 metoprolol succinate 100 mg tablet extended release 24 hr 100 mg PO DAILY RF: 0 albuterol sulfate 90 mcg/actuation HFA aerosol inhaler 2 puff inhalation Q4H PRN (Reason: shortness of breath or wheezing) Qty: 6.7 RF: 0 amiodarone 200 mg tablet 200 mg PO DAILY Qty: 30 RF: 0 nitroglycerin 0.4 mg tablet, sublingual 0.4 mg SL Q5M PRN (Reason: chest pain) Qty: 25 RF: 0 (DME) cane device See Dose Instructions .ROUTE .MEDSUPPLY Qty: 1 RF: 0 epinephrine 0.15 mg/0.3 mL auto-injector 0.3 ml IM UD PRN (Reason: Allergic Reaction) RF: 0 Discharge Orders: Discharge Order (Routine); Ordered 03/06/21 Ordered By: Calvin Lyman Admission Data Admit Date/Time: 03/06/21 06:10 Attending Provider: Lizette Odonnell Admit Provider: Nohemi Lyman Primary Care Provider: Waldo Armstrong Other Providers: Nohemi Lyman Other Interventions: Discharge Summary Assessment (RN) Last Done: 03/06/21 16:58 Supervising Physician Co-Signing Physician Notes Resident Physician Supervision Note: I independently interviewed and examined the patient and verified the leung history and physical, reviewed labs and image studies and agree with resident Dr. Lyman findings and care plan. Resident Activity Tracking Resident Involvement: Resident Care Provided Care Provided: Adult Hospital Medicine
[2021-03-06 15:17] LABS: C Reactive Protein < 0.50 mg/dl (0-5.00); Creatine Kinase 23 U/L (26-192); Magnesium 1.8 mg/dl (1.7-2.4)
--- NOTE | 2021-03-06 19:08 | Electrocardiogram Report ---
Test Reason : Blood Pressure : / mmHG Vent. Rate : 060 BPM Atrial Rate : 062 BPM P-R Int : 280 ms QRS Dur : 098 ms QT Int : 454 ms P-R-T Axes : -01 -04 028 degrees QTc Int : 454 ms Poor data quality, interpretation may be adversely affected Atrial-paced rhythm with prolonged AV conduction Abnormal ECG No previous ECGs available Confirmed by Kashmir Hagan ([id number]) on 03/06/2021 7:07:29 PM Referred By: REFERRED SELF Confirmed By:Kashmir Hagan
== END 2021-03-06 18:38 | disposition home or self-care (01) ==
LOC: EDINP 02:10 → ED 02:10 → SUATTDRO 06:10 → EDINP 09:35

== ENCOUNTER 2021-07-11 10:56 | Observation (INO) ==
--- NOTE | 2021-07-11 11:27 | Emergency Department Note ---
History of Present Illness General Chief complaint: Dental/Oral Stated complaint: ABCESSED TOOTH, PAIN, SWELLING Time Seen by Provider: 07/11/21 11:17 History of Present Illness Maximum Pain Intensity: 5 This is an 86-year-old female that presents to the emergency department via private vehicle with complaints of "abscessed tooth, pain, swelling". The patient notes that this past Tuesday afternoon/evening she began with discomfort to the left side of the face. She believes it is coming from her teeth. She was started on penicillin on Tuesday. She has been compliant with this medi cation. She notes that her symptoms have been worsening. She saw Dr. Deleon of oral maxillofacial surgery yesterday. She called him today and noted worsening symptoms. She was directed to the emergency department for evaluation and then inpatient management for surgical intervention planned for tomorrow. Patient denies any fevers or chills but does have nausea. No vomiting. No chest pain or shortness of breath. Last dose of penicillin was at 6:30 AM this morning. Home Medications Medication Instructions Recorded Confirmed Type amiodarone 200 mg tablet 200 mg PO DAILY #30 tab 07/24/18 07/11/21 History nitroglycerin 0.4 mg sublingual 0.4 mg SL Q5M PRN #25 tab 07/24/18 07/11/21 History tablet triamcinolone acetonide 0.1 % 1 appln TOP BID PRN #30 gm 08/29/18 07/11/21 Rx topical cream mecobalamin (vitamin B12) 1,000 1,000 mcg SUBLINGUAL DAILY #30 tab 10/14/20 07/11/21 Rx mcg disintegrating tablet,sublingual albuterol sulfate 90 mcg/actuation 2 puff INHALATION Q4H PRN #6.7 g 01/05/21 07/11/21 Rx aerosol inhaler valsartan 320 1 tab PO DAILY #90 tab 02/06/21 07/11/21 Rx mg-hydrochlorothiazide 25 mg tablet epinephrine 0.15 mg/0.3 mL 0.3 ml IM UD PRN 03/06/21 07/11/21 History injection,auto-injector levothyroxine 25 mcg tablet 25 mcg PO QAM #30 tab 03/12/21 07/11/21 Rx metoprolol succinate 50 mg 50 mg PO BID #180 tab 03/17/21 07/11/21 Rx tablet,extended release 24 hr rosuvastatin 10 mg tablet 10 mg PO DAILY #30 tab 05/06/21 07/11/21 Rx apixaban 5 mg tablet (Eliquis) 5 mg PO BID #60 tab 06/09/21 07/11/21 Rx amlodipine 2.5 mg tablet 2.5 mg PO DAILY 07/09/21 07/11/21 History hydralazine 10 mg tablet 20 mg PO TID tab 07/09/21 07/11/21 History levocetirizine 5 mg tablet 5 mg PO DAILY 07/09/21 07/11/21 History penicillin V potassium 500 mg 500 mg PO QID 5 Days #20 tab 07/09/21 07/11/21 Rx tablet levocetirizine 5 mg tablet (Xyzal) 5 mg PO DAILY 07/11/21 07/11/21 History Allergies Allergy/AdvReac Type Severity Reaction Status Date / Time clindamycin Allergy Severe SHOCK Verified 07/11/21 14:17 clopidogrel Allergy Severe HIVES Verified 07/11/21 14:17 epinephrine Allergy Severe NUMBNESS Verified 07/11/21 14:17 codeine Allergy Unknown UNKNOWN Verified 07/11/21 14:17 ezetimibe Allergy Unknown UNKNOWN Verified 07/11/21 14:17 hydrocodone Allergy Unknown UNKNOWN Verified 07/11/21 14:17 levothyroxine Allergy Unknown UNKNOWN Verified 07/11/21 14:17 metronidazole Allergy Unknown LOSS OF Verified 07/11/21 14:17 PIGMENT IN SKIN. FATIGUE mupirocin Allergy Unknown WEAKNESS,NA Verified 07/11/21 14:17 USEATED oxycodone Allergy Unknown UNKNOWN Verified 07/11/21 14:17 sotalol Allergy Unknown SWOLLEN Verified 07/11/21 14:17 ANKLES/REDNESS ON RIGHT LEG ticlopidine Allergy Unknown RASH Verified 07/11/21 14:17 chocolate flavor Allergy Unknown Verified 07/11/21 14:17 lisinopril Allergy Unknown Verified 07/11/21 14:17 Rriwpsp-VOA-WpV Reductase AdvReac Unknown ACHY JOINTS Verified 07/11/21 14:17 Inhibitor [Coqfnci-Mtj-Vxm Reductase Inhibitor] tramadol AdvReac Nausea Verified 07/11/21 14:17 Past Med/Surg History Medical History Adverse reaction to drug Alopecia Ambulatory dysfunction Bilateral knee pain Bilateral knee pain Brain tumor Breast cancer Breast cancer, right Cerebrovascular [place] disease Close exposure to 2019-nCoV Dental abscess Hearing loss of both ears due to cerumen impaction History of atrial fibrillation Hypertensive urgency Hypothyroidism Inflammatory arthritis Occipital neuralgia Paroxysmal atrial fibrillation Right ankle sprain Surgical History H/O cardiac radiofrequency ablation H/O right mastectomy H/O total hysterectomy 1970 Loose right total knee arthroplasty Pacemaker S/P hernia surgery 2004 Family History (Updated 07/10/21 @ 11:59 by Corinne Martínez RN) Mother Heart disease Other No pertinent family history Social History Smoking Status: Never smoker Second Hand Exposure: No; Do You Dip or Chew Tobacco: No; Hx Alcohol Use: No Hx Substance Use: No Preferred Language: Grenadian Communication Ability: Effective Visual Impairment: No Limitations Hearing Ability: Normal Graphic 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 Professor Required: No Beliefs That Will Affect Care: None marital status: Current Living Situation: Spouse 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 , 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 How many Children do You have: 3 Other Information That Helps Us Care for You: No Feels Safe at Home: Yes Childhood Exposure to Second-Hand Smoke: Yes during the past year weight has: remained stable Dental Care, Regularly: Yes Physical Activity Frequency: 5-6 Times per Week Seatbelt Use: always Assistive Devices: Glasses and Walker Assistive Devices Comment: uses walker sometimes Review of Systems A total of 10 systems reviewed and were otherwise negative Physical Exam Vital Signs Vital Signs - 24 hr 07/11/21 11:10 Temperature 36.9 C Temperature Source Oral Pulse Rate 79 Respiratory Rate 18 Blood Pressure 205/95 H Blood Pressure Mean 131 Pulse Oximetry 97 Oxygen Delivery Method Room Air Sepsis Recent Fever Within 48 Hours No Sepsis New/Unexplained Change in Mental Status No Sepsis Action Taken by Nursing No Action Required VITAL SIGNS - Vital signs and nursing notes were reviewed. Stable and afebrile. GENERAL -86-year-old female appearing her stated age who is in no acute distress. Communicates well with provider and answers questions appropriately. SKIN - Without rashes. No meningeal or petechial rash. There is edema noted to the left mandibular region/jawline with some mild erythema. There is mild fluc tuance to this area. HEAD - NC/AT. EYES - PERRL with EOMI bilaterally. Sclera anicteric. EARS - No deformities of external structures noted on gross examination bilaterally. No pain elicited with palpation of the tragus bilaterally. External auditory canals without discharge or otorrhea. Tympanic membranes pearly godwin without retraction or bulging. No fluid or purulent material visualized behind the TM. Handle of malleus, umbo, cone of light, pars tensa/flaccid all easily visualized. NOSE - Midline and without cyanosis. No epistaxis or purulent drainage noted. Septum midline without deviation or septal hematoma noted. MOUTH/OROPHARYNX - Without perioral cyanosis. Buccal mucosa pink and moist and without leukoplakia. Tongue midline with equal elevation of palate bilaterally. Left-sided oral edema noted surrounding the dentition. No evidence of Osmani's angina. NECK - Neck with FROM. Supple to palpation. Left greater than right anterior cervical lymphadenopathy noted. No nuchal rigidity. LUNGS - Chest wall symmetric without accessory muscle use, intercostals retractions, or central cyanosis. Normal vesicular breath sounds CTA B/L. No wheezes, rales, or rhonchi appreciated. CARDIAC - RRR EXTREMITIES - No clubbing or peripheral cyanosis. +5/5 strength noted in UE/LE bilaterally. NEUROLOGIC - Cranial nerves II through XII grossly intact. PSYCH - A&Ox3 and cooperates fully with examiner. Pt is very pleasant and interacts well with examiner. Course Administered Medications Hydralazine HCl (Hydralazine Hcl 20 Mg/Ml Vial) 10 mg IV Q8 PRN PRN Reason: sbp>185 or dbp>95 Stop: 08/10/21 15:24 Last Admin: 07/11/21 17:28 Dose: 10 mg Documented by: [id number] Ampicillin Sodium/Sulbactam Sodium 3,000 mg/ Sodium Chloride 108 mls @ 200 mls/hr IV Q6H [facility]; Protocol Stop: 07/21/21 12:59 Last Admin: 07/11/21 18:30 Dose: 200 mls/hr Documented by: [id number] Infusion: 07/11/21 14:34 Dose: 0 mls/hr Documented by: [id number] Admin: 07/11/21 13:48 Dose: 200 mls/hr Documented by: [id number] Medical Decision Making Laboratory Data Result diagrams: 07/11/21 11:55 07/11/21 14:02 Lab Results 07/11/21 07/11/21 07/11/21 Range/Units 11:55 11:55 11:55 WBC 6.78 (4.8-10.8) K/uL RBC 4.54 (4.2-5.4) M/uL Hgb 13.2 (12.0-16.0) g/dL Hct 39.9 (37-47) % MCV 87.9 (80-100) fL MCH 29.1 (25-34) pg MCHC 33.1 (32-36) g/dL RDW Std Deviation 46.6 H (36.4-46.3) fL RDW Coeff of Roma 14.5 (11.5-14.5) % Plt Count 217 (130-400) K/uL MPV 9.7 (7.4-10.4) fL Immature Gran % (Auto) 0.4 % Neut % (Auto) 68.8 % Lymph % (Auto) 17.0 % Bee % (Auto) 8.8 % Eos % (Auto) 4.6 % Baso % (Auto) 0.4 % Neut # (Auto) 4.66 (1.4-6.5) K/uL Lymph # (Auto) 1.15 L (1.2-3.4) K/uL Bee # (Auto) 0.60 H (0.11-0.59) K/uL Eos # (Auto) 0.31 (0-0.5) K/uL Baso # (Auto) 0.03 (0-0.2) K/uL Immature Gran # (Auto) 0.03 H (0.00-0.02) K/uL PT 10.5 (9.0-12.0) Seconds INR 1.0 (0.9-1.1) APTT 29.4 (21.0-31.0) Seconds PTT Ratio 1.1 Sodium 140 (136-145) mmol/L Potassium TNP Chloride 103 (98-107) mmol/L Carbon Dioxide 29 (21-32) mmol/L Anion Gap 8 (3-11) BUN 17 (6-23) mg/dl Creatinine 0.94 (0.6-1.2) mg/dl Est Cr Clr Drug Dosing 42.6 ml/min Est GFR ( Amer) 64.1 ml/min Est GFR (Non-Af Amer) 55.3 ml/min BUN/Creatinine Ratio 18.1 (10-20) Glucose 82 (70-99(Fasting)) mg/dl Calcium 9.1 (8.5-10.1) mg/dl Total Bilirubin 1.2 H (0.2-1.0) mg/dl AST TNP ALT 11 (7-52) U/L Alkaline Phosphatase 76 (34-104) U/L Total Protein 7.3 (6.0-8.3) gm/dl Albumin 3.8 (3.4-5.0) gm/dl Globulin 3.5 (2.5-4.0) gm/dl Albumin/Globulin Ratio 1.1 (0.9-2) SARS-CoV-2, RNA, NAAT (NEGATIVE) 07/11/21 Range/Units 12:09 WBC (4.8-10.8) K/uL RBC (4.2-5.4) M/uL Hgb (12.0-16.0) g/dL Hct (37-47) % MCV (80-100) fL MCH (25-34) pg MCHC (32-36) g/dL RDW Std Deviation (36.4-46.3) fL RDW Coeff of Roma (11.5-14.5) % Plt Count (130-400) K/uL MPV (7.4-10.4) fL Immature Gran % (Auto) % Neut % (Auto) % Lymph % (Auto) % Bee % (Auto) % Eos % (Auto) % Baso % (Auto) % Neut # (Auto) (1.4-6.5) K/uL Lymph # (Auto) (1.2-3.4) K/uL Bee # (Auto) (0.11-0.59) K/uL Eos # (Auto) (0-0.5) K/uL Baso # (Auto) (0-0.2) K/uL Immature Gran # (Auto) (0.00-0.02) K/uL PT (9.0-12.0) Seconds INR (0.9-1.1) APTT (21.0-31.0) Seconds PTT Ratio Sodium (136-145) mmol/L Potassium Chloride (98-107) mmol/L Carbon Dioxide (21-32) mmol/L Anion Gap (3-11) BUN (6-23) mg/dl Creatinine (0.6-1.2) mg/dl Est Cr Clr Drug Dosing ml/min Est GFR ( Amer) ml/min Est GFR (Non-Af Amer) ml/min BUN/Creatinine Ratio (10-20) Glucose (70-99(Fasting)) mg/dl Calcium (8.5-10.1) mg/dl Total Bilirubin (0.2-1.0) mg/dl AST ALT (7-52) U/L Alkaline Phosphatase (34-104) U/L Total Protein (6.0-8.3) gm/dl Albumin (3.4-5.0) gm/dl Globulin (2.5-4.0) gm/dl Albumin/Globulin Ratio (0.9-2) SARS-CoV-2, RNA, NAAT NEGATIVE (NEGATIVE) Imaging Data Radiologist's Impression: Soft Tissue Neck CT 07/11/21 12:09 CT soft tissue neck wo con CLINICAL HISTORY: Facial edema on the left, erythema, pain COMPARISON STUDY: No previous studies for comparison. TECHNIQUE: Axial images of the neck were obtained without IV contrast. Sagittal and coronal reconstructions were viewed. Automated exposure control was utilized for the study. A dose lowering technique was utilized adhering to the principles of ALARA. FINDINGS: Visualized portions of the intracranial contents are unremarkable. Left maxillary sinus is opacified. This is chronic. Parotid and submandibular glands are unremarkable. A marker was placed on the skin at site of edema. There is mild corresponding skin thickening and subcutaneous stranding. There is slight asymmetric thickening of the left platysma. No fluid collection is identified to suggest an abscess. There is no soft tissue gas. This suggests an infectious process. Note is made of a periapical lucency associated with a left mandibular molar. Its unclear if this represents the source. Numerous teeth are absent there are multiple dental amalgams. Numerous small thyroid nodules are present. Epiglottis is normal. Lung apices are unremarkable. Left subclavian pacer is partially imaged. There is no acute cervical spine fracture. No pathologically enlarged cervical lymph nodes are present. There is no prevertebral edema. IMPRESSION: Skin thickening and subcutaneous stranding of the left lower face and upper neck consistent with cellulitis. No abscess. No soft tissue gas. The source for this infectious process is not entirely clear although could be odontogenic given a periapical lucency of a left mandibular molar. ACT 112: Negative or not required by law. Electronically signed by: Sridhar Romero M.D. 07/11/2021 2:20 PM MDM Narrative Patient was seen and evaluated as above in room C08. Review was performed of nursing notes and vital signs. I did review pertinent previous visits and patient history. After obtaining a thorough history and physical examination the above work up was performed. Patient presents to us today for evaluation of left-sided facial swelling originating from the dentition that has been ongoing since this past Tuesday and worsening. She clinically appears well. I did review the patient's oral maxillofacial surgery note as documented by Dr. Deleon. I did call and speak with Dr. Deleon at 11:28 AM on 07/11/2021. We will proceed with CT imaging of the region, medical clearance to undergo surgery and IV antibiotics with surgical intervention tomorrow. Dr. Deleon will see the patient here once admitted later today. Options of care were discussed with the patient. IV access was established. Labs were drawn. CT imaging was obtained. I discussed her presentation with Dr. Deleon. We will plan for surgical intervention tomorrow. She will require medical clearance noting her comorbidities prior to surgical intervention. Case discussed with the hospitalist service. She will be admitted for further evaluation and management. Labs reveal no leukocytosis or concerning anemia. No emergent metabolic disturbance. Please refer to further documentation regarding her stay. Case was discussed with the attending physician. GCS: 15 In the evaluation and treatment of this patient, the following differential diagnoses were considered: Periapical Abscess, Osteonecrosis of the Jaw, Dental Fracture, Dental Caries, Ruy's Angina, Vincent's Angina, Facial Cellulitis, among others. Impression & Plan Left facial swelling, Facial infection Discharge Plan Visit Data Chief Complaint: Dental/Oral Stated Complaint: ABCESSED TOOTH, PAIN, SWELLING ED Provider: Jett Greco ED Midlevel Provider: Mane Walsh Discharge Problem: Left facial swelling, Facial infection Patient Disposition: Admitted As Inpatient Condition: Good Discharge Instructions Interventions: ED Discharge Assessment Last Done: 07/11/21 15:05
[2021-07-11 12:18] LABS: Basophils # (auto) 0.03 K/uL (0-0.2); Basophils % (auto) 0.4 %; Eosinophils # (auto) 0.31 K/uL (0-0.5); Eosinophils % (auto) 4.6 %; Hematocrit (blood only) 39.9 % (37-47); Hemoglobin 13.2 g/dL (12.0-16.0); Immature Granulocytes # (auto) 0.03 K/uL (0.00-0.02); Immature Granulocytes % (auto) 0.4 %; Lymphocytes # (auto) 1.15 K/uL (1.2-3.4); Mean Corpuscular Hemoglobin 29.1 pg (25-34); Mean Corpuscular Hgb Conc 33.1 g/dL (32-36); Mean Corpuscular Volume 87.9 fL (80-100); Mean Platelet Volume 9.7 fL (7.4-10.4); Monocytes % (auto) 8.8 %; Neutrophils # (auto) 4.66 K/uL (1.4-6.5); Neutrophils % (auto) 68.8 %; Platelet Count 217 K/uL (130-400); RDW Coefficient of Variation 14.5 % (11.5-14.5); RDW Standard Deviation 46.6 fL (36.4-46.3); Red Blood Count 4.54 M/uL (4.2-5.4); White Blood Count 6.78 K/uL (4.8-10.8)
[2021-07-11 12:43] LABS: Partial Thromboplastin Ratio 1.1; Partial Thromboplastin Time 29.4 Seconds (21.0-31.0); Prothrombin Time 10.5 Seconds (9.0-12.0)
--- NOTE | 2021-07-11 12:51 | History & Physical Report ---
Date of Service July 11, 2021 Assessment & Plan (1) Dental abscess: Plan: Patient admitted under recommendation of Dr. Deleon for dental abscess she will be on Unasyn antibiotic therapy. No airway issues will not employ any steroids. She does take apixaban and she will need to have this held prior to her surgery. Her preoperative medical screening questions are negative for unstable angina or significant pulmonary disease. Likely to be medically optimized to proceed to surgery on 07/12/[address] Deleon (2) ASCVD (arteriosclerotic cardiovascular disease): Plan: Patient with a history of ASCVD and hypertension. She also has previous history of MIs in the past. 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 He is maintained on amiodarone amlodipine hydralazine metoprolol and valsartan hydrochlorothiazide He typically follows with Dr. Brumfield Last echo in our system 2019 shows preserved ejection fraction mild pulmonary hypertension and mild to moderate mitral regurgitation (3) Atrial fibrillation: Plan: Atrial fibrillation is rate controlled with metoprolol and pacemaker ending preoperative EKG (4) Hypothyroidism: Plan: Maintained on Synthroid will be continued, last TSH checked May 07, 2021 is 3.8 which is normal Plan: Patient is a full code [place] prevention SCDs Of note the patient has a history of breast cancer status postmastectomy. She has a 1.9 cm left frontal extra-axial mass likely representing a meningioma that has been present for some time and not causing her issues currently seen in September 2020 an MRI Additionally she sees urology pending cystoscopy for gross hematuria apically following [facility] urology History of Present Illness Primary Care Provider: Waldo Armstrong MD 86-year-old female presents to the ER with worsening dental pain and concern for possible periodontal abscess patient has known issue with a left lower molar which is worsened over the last few days. On-call orofacial surgeon, Dr. Deleon, was contacted referred her to the ER and after review feels she needs the dental extraction. Patient takes apixaban and will need to have a day of washout before the extraction occurs. Patient is scheduled for extraction on 12 July. Otherwise the patient has a history of tachybradycardia syndrome with a pacemaker and a history of coronary artery disease. Most recently she is noted any symptoms of unstable angina or worsening exertional dyspnea. He does have some orthopnea which she says relates to previous issues that were occurring around a mastectomy for breast cancer where she just never was comfortable laying flat. She does not feel she gets short of breath laying flat but just prefers still sleep sitting up. She said no increase in weight or lower extremity edema. She has no problems in the past with anesthesia and she has had no recent bruising bleeding etc. She does have significant medication allergies. Allergies Allergy/AdvReac Type Severity Reaction Status Date / Time clindamycin Allergy Severe SHOCK Verified 07/11/21 14:17 clopidogrel Allergy Severe HIVES Verified 07/11/21 14:17 epinephrine Allergy Severe NUMBNESS Verified 07/11/21 14:17 codeine Allergy Unknown UNKNOWN Verified 07/11/21 14:17 ezetimibe Allergy Unknown UNKNOWN Verified 07/11/21 14:17 hydrocodone Allergy Unknown UNKNOWN Verified 07/11/21 14:17 levothyroxine Allergy Unknown UNKNOWN Verified 07/11/21 14:17 metronidazole Allergy Unknown LOSS OF Verified 07/11/21 14:17 PIGMENT IN SKIN. FATIGUE mupirocin Allergy Unknown WEAKNESS,NA Verified 07/11/21 14:17 USEATED oxycodone Allergy Unknown UNKNOWN Verified 07/11/21 14:17 sotalol Allergy Unknown SWOLLEN Verified 07/11/21 14:17 ANKLES/REDNESS ON RIGHT LEG ticlopidine Allergy Unknown RASH Verified 07/11/21 14:17 chocolate flavor Allergy Unknown Verified 07/11/21 14:17 lisinopril Allergy Unknown Verified 07/11/21 14:17 Tetoykv-DWI-IxQ Reductase AdvReac Unknown ACHY JOINTS Verified 07/11/21 14:17 Inhibitor [Xaqloou-Yle-Sqb Reductase Inhibitor] tramadol AdvReac Nausea Verified 07/11/21 14:17 Home Medications Medication Instructions Recorded Confirmed Type amiodarone 200 mg tablet 200 mg PO DAILY #30 tab 07/24/18 07/11/21 History nitroglycerin 0.4 mg sublingual 0.4 mg SL Q5M PRN #25 tab 07/24/18 07/11/21 History tablet triamcinolone acetonide 0.1 % 1 appln TOP BID PRN #30 gm 08/29/18 07/11/21 Rx topical cream mecobalamin (vitamin B12) 1,000 1,000 mcg SUBLINGUAL DAILY #30 tab 10/14/20 07/11/21 Rx mcg disintegrating tablet,sublingual albuterol sulfate 90 mcg/actuation 2 puff INHALATION Q4H PRN #6.7 g 01/05/21 07/11/21 Rx aerosol inhaler valsartan 320 1 tab PO DAILY #90 tab 02/06/21 07/11/21 Rx mg-hydrochlorothiazide 25 mg tablet epinephrine 0.15 mg/0.3 mL 0.3 ml IM UD PRN 03/06/21 07/11/21 History injection,auto-injector levothyroxine 25 mcg tablet 25 mcg PO QAM #30 tab 03/12/21 07/11/21 Rx metoprolol succinate 50 mg 50 mg PO BID #180 tab 03/17/21 07/11/21 Rx tablet,extended release 24 hr rosuvastatin 10 mg tablet 10 mg PO DAILY #30 tab 05/06/21 07/11/21 Rx apixaban 5 mg tablet (Eliquis) 5 mg PO BID #60 tab 06/09/21 07/11/21 Rx amlodipine 2.5 mg tablet 2.5 mg PO DAILY 07/09/21 07/11/21 History hydralazine 10 mg tablet 20 mg PO TID tab 07/09/21 07/11/21 History levocetirizine 5 mg tablet 5 mg PO DAILY 07/09/21 07/11/21 History penicillin V potassium 500 mg 500 mg PO QID 5 Days #20 tab 07/09/21 07/11/21 Rx tablet levocetirizine 5 mg tablet (Xyzal) 5 mg PO DAILY 07/11/21 07/11/21 History Past Med/Surg History Medical History Adverse reaction to drug Alopecia Ambulatory dysfunction Bilateral knee pain Bilateral knee pain Brain tumor Breast cancer Breast cancer, right Cerebrovascular Moy[place]oya disease Close exposure to 2019-nCoV Dental abscess Hearing loss of both ears due to cerumen impaction History of atrial fibrillation Hypertensive urgency Hypothyroidism Inflammatory arthritis Occipital neuralgia Paroxysmal atrial fibrillation Right ankle sprain Surgical History H/O cardiac radiofrequency ablation H/O right mastectomy H/O total hysterectomy 1969 Loose right total knee arthroplasty Pacemaker S/P hernia surgery 2004 Family History (Updated 07/10/21 @ 11:59 by Corinne Martínez RN) Mother Heart disease Other No pertinent family history Social History Smoking Status: Never smoker Second Hand Exposure: No; Do You Dip or Chew Tobacco: No; Hx Alcohol Use: No Hx Substance Use: No Preferred Language: Setswana Communication Ability: Effective Visual Impairment: No Limitations Hearing Ability: Normal Pastry Mixer Required: No Beliefs That Will Affect Care: None marital status: Current Living Situation: Spouse 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 , 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 How many Children do You have: 3 Other Information That Helps Us Care for You: No Feels Safe at Home: Yes Childhood Exposure to Second-Hand Smoke: Yes during the past year weight has: remained stable Dental Care, Regularly: Yes Physical Activity Frequency: 5-6 Times per Week Seatbelt Use: always Assistive Devices: Glasses and Walker Assistive Devices Comment: uses walker sometimes Review of Systems Review of Systems: Moderate distress from facial pain no headache, no visual changes no speech or swallowing issues Pain surrounding her left posterior mandibular molar and some swelling to the left cheek no chest pain, pressure or palpitations no shortness of breath, cough or wheezes no abdominal pain, nausea or vomiting, diarrhea or constipation no dysuria, hematuria or frequency no focal joint pain or swelling no back pain, CVA tenderness or radicular pain no bruising, bleeding or rashes no focal signs of weakness or numbness or altered sensation no complaints of anxiety or depression.. Physical Exam Physical Exam: The patient appeared well nourished and normally developed. Vital signs as documented. Head exam is normocephalic atraumatic Oropharynx was examined. She has fused to the teeth already extracted her left posterior molar as well by itself there is significant amalgam filling in it gums are erythematous there is no significant submandibular lymphadenopathy but her cheek is full with some boggy edema likely from periodontal infection Neck is without JVD, thyromegaly, or carotid bruits. There is no stridor Lungs are clear to auscultation, no focal loss of breath sounds Cardiac exam, Rhythm is regular.. No murmurs, rubs or gallops. Abdominal exam reveals normal bowel sounds, soft non tender, no masses Extremities are nonedematous and both pedal pulses are present Neurologic exam is alert and oriented, no focal loss of strength or sensation Skin is without bruises or rashes Psychologically is without concerns for anxiety or depression.. Results & Data Results & Data ([facility]) Vital Signs (Past 12 Hours) Vital Signs Temp Pulse Resp BP Pulse Ox 07/11/21 11:10 98.4 F 79 18 205/95 H 97 PG Care Time/CCT Total # of Minutes Spent Total Time Spent with Patient: Total time spent is greater than 50% in coordination of care (as documented) at patient's floor/unit and/or counseling patient: Coding Level of Care Code INT OBSERVATION CARE 70M LVL 3 Diagnoses Dental abscess K04.7 ASCVD (arteriosclerotic cardiovascular disease) I25.10 Hypothyroidism E03.9 Atrial fibrillation I48.91
[2021-07-11] MEDS ORDERED: MoRPHine SULFATE 2 MG/ML CARP IV PRN (13:00)
[2021-07-11] MEDS ORDERED: MoRPHine SULFATE 4 MG/ML 1 ML CARP\\VIAL IV PRN (13:00)
[2021-07-11 13:47] LABS: Alanine Aminotransferase 11 U/L (7-52); Albumin Globulin Ratio 1.1 (0.9-2); Albumin Level 3.8 gm/dl (3.4-5.0); Alkaline Phosphatase 76 U/L (34-104); Anion Gap 8 (3-11); BUN Creatinine Ratio 18.1 (10-20); Bilirubin,Total 1.2 mg/dl (0.2-1.0); Blood Urea Nitrogen 17 mg/dl (6-23); Calcium 9.1 mg/dl (8.5-10.1); Carbon Dioxide 29 mmol/L (21-32); Chloride 103 mmol/L (98-107); Creatinine Clr Calc Pharmacy 42.6 ml/min; Est GFR (African American) 64.1 ml/min; Est GFR (Non-African American) 55.3 ml/min; Globulin 3.5 gm/dl (2.5-4.0); Glucose 82 mg/dl (70-99(Fasting)); Sodium 140 mmol/L (136-145); Total Protein 7.3 gm/dl (6.0-8.3)
[2021-07-11] MEDS: AMPICILLIN/SULBACTAM SOD 3,000 MG in 0.9 % SODIUM CHLORIDE 100 ML IV SCH ×2 (13:48→18:30)
--- NOTE | 2021-07-11 14:23 | CT Scan Report ---
CT soft tissue neck wo con CLINICAL HISTORY: Facial edema on the left, erythema, pain COMPARISON STUDY: No previous studies for comparison. TECHNIQUE: Axial images of the neck were obtained without IV contrast. Sagittal and coronal reconstru ctions were viewed. Automated exposure control was utilized for the study. A dose lowering technique was utilized adhering to the principles of ALARA. FINDINGS: Visualized portions of the intracranial contents are unremarkable. Left maxillary sinus is opacified. This is chronic. Parotid and submandibular glands are unremarkable. A marker was placed on the skin at site of edema. There is mild corresponding skin thickening and subcutaneous stranding. T here is slight asymmetric thickening of the left platysma. No fluid collection is identified to sugge st an abscess. There is no soft tissue gas. This suggests an infectious process. Note is made of a pe riapical lucency associated with a left mandibular molar. Its unclear if this represents the source. Numerous teeth are absent there are multiple dental amalgams. Numerous small thyroid nodules are pres ent. Epiglottis is normal. Lung apices are unremarkable. Left subclavian pacer is partially imaged. T here is no acute cervical spine fracture. No pathologically enlarged cervical lymph nodes are present . There is no prevertebral edema. IMPRESSION: Skin thickening and subcutaneous stranding of the left lower face and upper neck consist ent with cellulitis. No abscess. No soft tissue gas. The source for this infectious process is not en tirely clear although could be odontogenic given a periapical lucency of a left mandibular molar. ACT 112: Negative or not required by law. Electronically signed by: Sridhar Romero M.D. 07/11/2021 2:20 PM
[2021-07-11] MEDS ORDERED: ALBUTEROL HFA 8 GM INHALER INH PRN (15:25)
[2021-07-11] MEDS ORDERED: ONDANSETRON INJ 2 MG/ML 2 ML VIAL IV PRN (15:25)
[2021-07-11] MEDS: hydrALAZINE HCL 20 MG/ML VIAL IV PRN (17:28)
--- NOTE | 2021-07-11 19:43 | Oral/Maxillofacial Consult ---
Date of Consultation July 11, 2021 Assessment & Plan (1) Dental abscess: (2) Left facial swelling: (3) On anticoagulant therapy: History of Present Illness Attending Physician: Manny Gao MD History of Present Illness Oral Maxillofacial Surgery Exam Present Complaint: I have pain/swelling/drainage from my infected wisdom tooth lower left side (# 17) with facial swelling and severe painin addition ther eis a fractured tooth area 4 with infected gingival tissue. Symptoms have been ongoing for a while started July 06 My doctor placed me on Antibiotics on July 08 --I see no improvement Update at 9 am July 11 patient called me this Morning Could not sleep due to pain and swelling, states no improvement in swelling or symptoms despite 3 days of oral antibiotics. I suggested that IV antibiotics and in patient admission for pain control and I&D with extraction of # 17 be done. I suggested she come to [facility] ED -- she will need CT and medical clearance before I take her to OR possible on Tuesday. She sees Dr Garcia in [facility] and will need admission to [facility] service I will see Debby review the CT and set her up for the I&D once she is admitted and cleared medically Oral Exam: Finding--P-cor associated with the malposed # 17 , tender gingival tissue with deep pocket formation. Gross intraoral swelling. Submandibular and cheek swelling # 4 fractured tooth with infection and gingival fistula present Other teeth show some periodontal bone loss--suggest dental exam soon. Imaging:--pending Soft tissue: floor of the mouth--slight swelling Submandibular swelling, intraoral swelling. Otherwise--tongue, hard/soft palate, posterior pharyngeal area all with in normal limits, Gingival irrigation secondary to fractured # 4 Oral Care: Overall oral care is fair Occlusion: Class I missing teeth abnormal position of # 17 with grossly swollen tissue Fractured # 4 TMJ exam: No pop, clicking, pain, good ROM, No history of TMJ injury or dysfunction Periodontal exam: Healthy gingival tissue without evidence of periodontal pathology except # 17 area and # 4 area Head/Neck exam: Neck is supple, some limited FROM, Able to extend and flex neck w/o difficulty, no masses, no abnormalities, no airway issues. Treatment Plan: When I saw Debby on July 10 I suggested that given the failure of outpatient antibiotics to improve the symptoms and swelling that we consider IV antibiotics and hospital admission. Debby was not in agreement with this suggestion and wanted to give it another 24 hours to see if she will be able to avoid the hospital. I agreed to this and she will call me Tuesday AM and update me on her progress. My plan if no improvement will be to Set up with general anesthesia in hospital due to complexity of the procedure I reviewed the treatment plan and consent with the patient Understanding was expressed. Time was given for questions regarding the surgery, risks and post op care. Discussed alternative to treatment--procedure as planned, Do not do surgery Risks discussed: Bleeding,Pain,swelling,infection, dry socket, delayed healing, nerve injury to face,lips,tongue,chin area which could be permanent (rare). TMJ, jaw stiffness, change in bite (rare), ear pain (referred). Sinus problems like fistula or infection. Need to leave a small root fragment in place to avoid injury to nerve or sinus. Relationship of wisdom teeth to nerve/sinus and risk of jaw fracture. Surgery to be set up in OR for extraction of # 17 with I&D and extraction of # 4 in OR once medically cleared. The plan is for late Tuesday afternoon to allow washout of the apixaban. Consent signed will await medical clearance. She takes the Apixaban (Eliquis) in AM and PM last dose was Tuesday at 8 pm--I plan for surgery late afternoon Tuesday. Allergies Allergy/AdvReac Type Severity Reaction Status Date / Time clindamycin Allergy Severe SHOCK Verified 07/11/21 14:17 clopidogrel Allergy Severe HIVES Verified 07/11/21 14:17 epinephrine Allergy Severe NUMBNESS Verified 07/11/21 14:17 codeine Allergy Unknown UNKNOWN Verified 07/11/21 14:17 ezetimibe Allergy Unknown UNKNOWN Verified 07/11/21 14:17 hydrocodone Allergy Unknown UNKNOWN Verified 07/11/21 14:17 levothyroxine Allergy Unknown UNKNOWN Verified 07/11/21 14:17 metronidazole Allergy Unknown LOSS OF Verified 07/11/21 14:17 PIGMENT IN SKIN. FATIGUE mupirocin Allergy Unknown WEAKNESS,NA Verified 07/11/21 14:17 USEATED oxycodone Allergy Unknown UNKNOWN Verified 07/11/21 14:17 sotalol Allergy Unknown SWOLLEN Verified 07/11/21 14:17 ANKLES/REDNESS ON RIGHT LEG ticlopidine Allergy Unknown RASH Verified 07/11/21 14:17 chocolate flavor Allergy Unknown Verified 07/11/21 14:17 lisinopril Allergy Unknown Verified 07/11/21 14:17 Zcczkqx-IYS-AbW Reductase AdvReac Unknown ACHY JOINTS Verified 07/11/21 14:17 Inhibitor [Bahtilo-Xql-Ffj Reductase Inhibitor] tramadol AdvReac Nausea Verified 07/11/21 14:17 Home Medications Medication Instructions Recorded Confirmed Type amiodarone 200 mg tablet 200 mg PO DAILY #30 tab 07/24/18 07/11/21 History nitroglycerin 0.4 mg sublingual 0.4 mg SL Q5M PRN #25 tab 07/24/18 07/11/21 History tablet triamcinolone acetonide 0.1 % 1 appln TOP BID PRN #30 gm 08/29/18 07/11/21 Rx topical cream mecobalamin (vitamin B12) 1,000 1,000 mcg SUBLINGUAL DAILY #30 tab 10/14/20 07/11/21 Rx mcg disintegrating tablet,sublingual albuterol sulfate 90 mcg/actuation 2 puff INHALATION Q4H PRN #6.7 g 01/05/21 07/11/21 Rx aerosol inhaler valsartan 320 1 tab PO DAILY #90 tab 02/06/21 07/11/21 Rx mg-hydrochlorothiazide 25 mg tablet epinephrine 0.15 mg/0.3 mL 0.3 ml IM UD PRN 03/06/21 07/11/21 History injection,auto-injector levothyroxine 25 mcg tablet 25 mcg PO QAM #30 tab 03/12/21 07/11/21 Rx metoprolol succinate 50 mg 50 mg PO BID #180 tab 03/17/21 07/11/21 Rx tablet,extended release 24 hr rosuvastatin 10 mg tablet 10 mg PO DAILY #30 tab 05/06/21 07/11/21 Rx apixaban 5 mg tablet (Eliquis) 5 mg PO BID #60 tab 06/09/21 07/11/21 Rx amlodipine 2.5 mg tablet 2.5 mg PO DAILY 07/09/21 07/11/21 History hydralazine 10 mg tablet 20 mg PO TID tab 07/09/21 07/11/21 History levocetirizine 5 mg tablet 5 mg PO DAILY 07/09/21 07/11/21 History penicillin V potassium 500 mg 500 mg PO QID 5 Days #20 tab 07/09/21 07/11/21 Rx tablet levocetirizine 5 mg tablet (Xyzal) 5 mg PO DAILY 07/11/21 07/11/21 History Patient History Medical History Adverse reaction to drug Alopecia Ambulatory dysfunction Bilateral knee pain Bilateral knee pain Brain tumor Breast cancer Breast cancer, right Cerebrovascular [place] disease Close exposure to 2019-nCoV Dental abscess Hearing loss of both ears due to cerumen impaction History of atrial fibrillation Hypertensive urgency Hypothyroidism Inflammatory arthritis Occipital neuralgia Paroxysmal atrial fibrillation Right ankle sprain Surgical History H/O cardiac radiofrequency ablation H/O right mastectomy H/O total hysterectomy 1969 Loose right total knee arthroplasty Pacemaker S/P hernia surgery 2004 Family History (Updated 07/10/21 @ 11:59 by Corinne Martínez RN) Mother Heart disease Other No pertinent family history Social History Smoking Status: Never smoker Second Hand Exposure: No; Do You Dip or Chew Tobacco: No; Hx Alcohol Use: No Hx Substance Use: No Preferred Language: Macedonian Communication Ability: Effective Visual Impairment: No Limitations Hearing Ability: Normal Full Roll Inspector Required: No Beliefs That Will Affect Care: None marital status: Current Living Situation: Spouse 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 , 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 How many Children do You have: 3 Other Information That Helps Us Care for You: No Feels Safe at Home: Yes Childhood Exposure to Second-Hand Smoke: Yes during the past year weight has: remained stable Dental Care, Regularly: Yes Physical Activity Frequency: 5-6 Times per Week Seatbelt Use: always Assistive Devices: Glasses and Walker Assistive Devices Comment: uses walker sometimes Results & Data ([facility]) Vital Signs (Past 12 Hours) Vital Signs Temp Pulse Pulse Resp BP BP Pulse Ox 07/11/21 19:25 36.2 C L 60 16 185/97 H 95 07/11/21 18:35 150/81 H 07/11/21 17:25 178/99 H 07/11/21 15:29 36.8 C 69 18 185/91 H 07/11/21 14:24 65 16 201/85 H 97 07/11/21 11:10 36.9 C 79 18 205/95 H 97 PG Care Time/CCT Total # of Minutes Spent Total Time Spent with Patient: Total time spent is greater than 50% in coordination of care (as documented) at patient's floor/unit and/or counseling patient: Coding Level of Care Code 71208 Initial Inpt Care Lvl 2 Diagnoses Dental abscess K04.7 Left facial swelling R22.0 On anticoagulant therapy Z79.01
[2021-07-11] MEDS: METOPROLOL SUCC 50MG EXT REL TAB PO SCH (21:06)
[2021-07-11] MEDS: ACETAMINOPHEN 500 MG TAB PO PRN (21:07)
[2021-07-11] MEDS: hydrALAZINE 10 MG TAB PO SCH (21:07)
[2021-07-12] MEDS: AMPICILLIN/SULBACTAM SOD 3,000 MG in 0.9 % SODIUM CHLORIDE 100 ML IV SCH ×4 (00:29→18:14)
[2021-07-12] MEDS: LEVOTHYROXINE SODIUM 25 MCG TABLET PO SCH (05:58)
[2021-07-12 06:32] LABS: Hematocrit (blood only) 38.4 % (37-47); Hemoglobin 12.9 g/dL (12.0-16.0); Mean Corpuscular Hemoglobin 29.6 pg (25-34); Mean Corpuscular Hgb Conc 33.6 g/dL (32-36); Mean Corpuscular Volume 88.1 fL (80-100); Mean Platelet Volume 9.6 fL (7.4-10.4); Platelet Count 225 K/uL (130-400); RDW Coefficient of Variation 14.6 % (11.5-14.5); RDW Standard Deviation 47.4 fL (36.4-46.3); Red Blood Count 4.36 M/uL (4.2-5.4)
--- NOTE | 2021-07-12 07:59 | Hospitalist Progress Note ---
Date of Service July 12, 2021 Assessment & Plan (1) Dental abscess: Plan: Patient admitted under recommendation of Dr. Deleon for dental abscess she will be on Unasyn antibiotic therapy. No airway issues will not employ any steroids. She does take apixaban and she will need to have this held prior to her surgery. Her preoperative medical screening questions are negative for unstable angina or significant pulmonary disease. Likely to be medically optimized to proceed to surgery on 07/12/[address] Deleon CT soft tissue neck 07/11/21 Skin thickening and subcutaneous stranding of the left lower face and upper neck consistent with cellulitis. No abscess. No soft tissue gas. The source for this infectious process is not entirely clear although could be odontogenic given a periapical lucency of a left mandibular molar. (2) ASCVD (arteriosclerotic cardiovascular disease): Plan: Patient with a history of ASCVD and hypertension. She also has previous history of MIs in the past. 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 He is maintained on amiodarone amlodipine hydralazine metoprolol and valsartan hydrochlorothiazide He typically follows with Dr. Brumfield Last echo in our system 2019 shows preserved ejection fraction mild pulmonary hypertension and mild to moderate mitral regurgitation (3) Atrial fibrillation: Plan: Atrial fibrillation is rate controlled with metoprolol and pacemaker ending preoperative EKG (4) Hypothyroidism: Plan: Maintained on Synthroid will be continued, last TSH checked May 07, 2021 is 3.8 which is normal Plan: Patient is a full code [place] prevention SCDs Of note the patient has a history of breast cancer status postmastectomy. She has a 1.9 cm left frontal extra-axial mass likely representing a meningioma that has been present for some time and not causing her issues currently seen in September 2020 an MRI Additionally she sees urology pending cystoscopy for gross hematuria apically following [facility] urology Admission and Anticipated Discharge Date Admission Date: July 11, 2021 Subjective pt is feeling about the same, slated for surgical removal of periodonatal abscess afternoon 07/11/21 Review of Systems Review of Systems: Moderate distress from facial pain no headache, no visual changes no speech or swallowing issues Pain surrounding her left posterior mandibular molar and remains with swelling to the left cheek no chest pain, pressure or palpitations no shortness of breath, cough or wheezes no abdominal pain, nausea or vomiting, diarrhea or constipation no dysuria, hematuria or frequency no focal joint pain or swelling no back pain, CVA tenderness or radicular pain no bruising, bleeding or rashes no focal signs of weakness or numbness or altered sensation no complaints of anxiety or depression. Physical Exam Physical Exam: The patient appeared well nourished and normally developed. Vital signs as documented. Head exam is normocephalic atraumatic Oropharynx was examined. She has fused to the teeth already extracted her left posterior molar as well by itself there is significant amalgam filling in it gums are erythematous there is no significant submandibular lymphadenopathy but her cheek is full with some boggy edema likely from periodontal infection Neck is without JVD, thyromegaly, or carotid bruits. There is no stridor Lungs are clear to auscultation, no focal loss of breath sounds Cardiac exam, Rhythm is regular.. No murmurs, rubs or gallops. Abdominal exam reveals normal bowel sounds, soft non tender, no masses Extremities are nonedematous and both pedal pulses are present Neurologic exam is alert and oriented, no focal loss of strength or sensation Skin is without bruises or rashes Psychologically is without concerns for anxiety or depression.. Results & Data Results & Data ([facility]) Vital Signs (Past 12 Hours) Vital Signs Temp Pulse Resp BP Pulse Ox 07/12/21 07:23 98.4 F 59 L 18 170/76 H 93 07/11/21 22:37 72 139/79 07/11/21 21:11 97.9 F 65 16 187/73 H 96 PG Care Time/CCT Total # of Minutes Spent Total Time Spent with Patient: Total time spent is greater than 50% in coordination of care (as documented) at patient's floor/unit and/or counseling patient: Coding Level of Care Code 91744 Subseq Hosp Care Lvl 2 Diagnoses Dental abscess K04.7 ASCVD (arteriosclerotic cardiovascular disease) I25.10 Atrial fibrillation I48.91 Hypothyroidism E03.9
[2021-07-12 08:22] LABS: BUN Creatinine Ratio 19.5 (10-20); Calcium 8.9 mg/dl (8.5-10.1); Creatinine Clr Calc Pharmacy 48.8 ml/min; Est GFR (African American) 75.6 ml/min; Est GFR (Non-African American) 65.3 ml/min; Magnesium 2.1 mg/dl (1.7-2.4); Potassium 4.2 mmol/L (3.5-5.1)
[2021-07-12] MEDS: hydrALAZINE 10 MG TAB PO SCH ×3 (08:38→19:58)
[2021-07-12] MEDS: VALSARTAN 80 MG TAB PO SCH (08:39)
[2021-07-12] MEDS: METOPROLOL SUCC 50MG EXT REL TAB PO SCH ×2 (08:39→19:58)
[2021-07-12] MEDS: hydroCHLOROthiazide 25 MG TAB PO SCH (08:40)
[2021-07-12] MEDS: AMIODARONE 200 MG TAB PO SCH (08:40)
[2021-07-12] MEDS: amLODIPine BESYLATE 5 MG TAB PO SCH (08:41)
[2021-07-12] MEDS ORDERED: LIDOCAINE 2% 2 ML VIAL/AMP(20MG/ML) INFIL ONE (09:01)
[2021-07-12] MEDS ORDERED: PROPOFOL IV EMULSION 10 MG/ML 20 ML VIAL IV ONE (09:01)
[2021-07-12] MEDS ORDERED: ONDANSETRON INJ 2 MG/ML 2 ML VIAL ONE (09:01)
[2021-07-12] MEDS ORDERED: ROCURONIUM BROMIDE 10 MG/ML 5 ML VIAL IV ONE (09:01)
[2021-07-12] MEDS ORDERED: fentaNYL citrate 100 MCG/2 ML VIAL ONE ×2 (09:01→15:27)
[2021-07-12] MEDS ORDERED: DEXAMETHASONE SOD INJ 4 MG/ML VIAL ONE (09:01)
[2021-07-12] MEDS: CETIRIZINE HCL 10 MG TABLET PO SCH (12:24)
[2021-07-12] MEDS ORDERED: SUCCINYLCHOLINE CHLORIDE 20 MG/ML 10 ML VIAL IV ONE (13:44)
[2021-07-12] MEDS ORDERED: LIDOCAINE/EPINEPHRINE 1.7 ML CTR ONE (13:52)
[2021-07-12] MEDS ORDERED: BUPIVACAINE/EPINEPHRINE 0.5% 1:200,000 1.8 ML CARP ONE (13:53)
--- NOTE | 2021-07-12 14:08 | Anesthesiology Consultation ---
Date of Service July 12, 2021 Assessment & Plan ASA ASA3 Proposed Anesthesia Anesthesia Type: General Risk / Benefits Reviewed With: PT / POA / Parent / Guardian, Accepts Plan and Informed Consent Obtained History Surgery Operation Date: 07/12/21 16:00 Proposed Procedures p Complete Bony Impaction - Amadeo Deleon, DMD Height/Weight Height: 5 ft 1 in Weight: 82.5 kg Allergies Allergy/AdvReac Type Severity Reaction Status Date / Time clindamycin Allergy Severe SHOCK Verified 07/11/21 14:17 clopidogrel Allergy Severe HIVES Verified 07/11/21 14:17 epinephrine Allergy Severe NUMBNESS Verified 07/11/21 14:17 codeine Allergy Unknown UNKNOWN Verified 07/11/21 14:17 ezetimibe Allergy Unknown UNKNOWN Verified 07/11/21 14:17 hydrocodone Allergy Unknown UNKNOWN Verified 07/11/21 14:17 levothyroxine Allergy Unknown UNKNOWN Verified 07/11/21 14:17 metronidazole Allergy Unknown LOSS OF Verified 07/11/21 14:17 PIGMENT IN SKIN. FATIGUE mupirocin Allergy Unknown WEAKNESS,NA Verified 07/11/21 14:17 USEATED oxycodone Allergy Unknown UNKNOWN Verified 07/11/21 14:17 sotalol Allergy Unknown SWOLLEN Verified 07/11/21 14:17 ANKLES/REDNESS ON RIGHT LEG ticlopidine Allergy Unknown RASH Verified 07/11/21 14:17 chocolate flavor Allergy Unknown Verified 07/11/21 14:17 lisinopril Allergy Unknown Verified 07/11/21 14:17 Uijfsmj-NMD-VfZ Reductase AdvReac Unknown ACHY JOINTS Verified 07/11/21 14:17 Inhibitor [Wswftlm-Dkn-Sfk Reductase Inhibitor] tramadol AdvReac Nausea Verified 07/11/21 14:17 Medications Home Medications Medication Instructions Recorded Confirmed Last Taken amiodarone 200 mg tablet 200 mg PO DAILY #30 tab 07/24/18 07/11/21 07/11/21 nitroglycerin 0.4 mg sublingual 0.4 mg SL Q5M PRN #25 tab 07/24/18 07/11/21 Unk nown tablet triamcinolone acetonide 0.1 % 1 appln TOP BID PRN #30 gm 08/29/18 07/11/21 Unknown topical cream mecobalamin (vitamin B12) 1,000 1,000 mcg SUBLINGUAL DAILY #30 tab 10/14/20 0 07/11/21 Unknown mcg disintegrating tablet,sublingual albuterol sulfate 90 mcg/actuation 2 puff INHALATION Q4H PRN #6.7 g 01/05/21 07/11/21 Unknown aerosol inhaler valsartan 320 1 tab PO DAILY #90 tab 02/06/21 07/11/21 07/11/21 mg-hydrochlorothiazide 25 mg tablet epinephrine 0.15 mg/0.3 mL 0.3 ml IM UD PRN 03/06/21 07/11/21 Unknown injection,auto-injector levothyroxine 25 mcg tablet 25 mcg PO QAM #30 tab 03/12/21 07/11/21 07/11/21 metoprolol succinate 50 mg 50 mg PO BID #180 tab 03/17/21 07/11/21 07/11/21 tablet,extended release 24 hr rosuvastatin 10 mg tablet 10 mg PO DAILY #30 tab 05/06/21 07/11/21 07/11/21 apixaban 5 mg tablet (Eliquis) 5 mg PO BID #60 tab 06/09/21 07/11/21 07/11/21 amlodipine 2.5 mg tablet 2.5 mg PO DAILY 07/09/21 07/11/21 07/11/21 hydralazine 10 mg tablet 20 mg PO TID tab 07/09/21 07/11/21 07/11/21 levocetirizine 5 mg tablet 5 mg PO DAILY 07/09/21 07/11/21 07/11/21 penicillin V potassium 500 mg 500 mg PO QID 5 Days #20 tab 07/09/21 07/11/21 Unknown tablet levocetirizine 5 mg tablet (Xyzal) 5 mg PO DAILY 07/11/21 07/11/21 07/11/21 Active Medications Generic Name Dose Route Start Last Admin Trade Name Freq PRN Reason Stop Dose Admin Acetaminophen 1,000 mg 07/11/21 15:25 07/11/21 21:07 Acetaminophen 500 Mg Tab PO 08/10/21 15:24 1,000 mg Q6H PRN Administration pain 1-5/10-/fever Amiodarone HCl 200 mg 07/12/21 09:00 07/12/21 08:40 Amiodarone 200 Mg Tab PO 08/11/21 08:59 200 mg DAILY STEFANIE Administration Amlodipine Besylate 2.5 mg 07/12/21 09:00 07/12/21 08:41 Amlodipine Besylate 5 Mg Tab PO 08/11/21 08:59 2.5 mg DAILY STEFANIE Administration Cetirizine HCl 10 mg 07/12/21 09:00 07/12/21 12:24 Cetirizine Hcl 10 Mg Tablet PO 08/11/21 08:59 10 mg DAILY STEFANIE Administration Hydralazine HCl 20 mg 07/11/21 21:00 07/12/21 08:38 Hydralazine 10 Mg Tab PO 08/10/21 20:59 20 mg TID STEFANIE Administration Hydralazine HCl 10 mg 07/11/21 15:25 07/11/21 17:28 Hydralazine Hcl 20 Mg/Ml Vial IV 08/10/21 15:24 10 mg Q8 PRN Administration sbp>185 or dbp>95 Hydrochlorothiazide 25 mg 07/12/21 09:00 07/12/21 08:40 Hydrochlorothiazide 25 Mg Tab PO 08/11/21 08:59 25 mg DAILY STEFANIE Administration Ampicillin Sodium/Sulbactam 108 mls @ 200 mls/hr 07/11/21 13:00 07/12/21 12:57 Sodium 3,000 mg/ Sodium IV 07/21/21 12:59 Infused Chloride Q6H STEFANIE Infusion Protocol Levothyroxine Sodium 25 mcg 07/12/21 06:30 07/12/21 05:58 Levothyroxine Sodium 25 Mcg Tablet PO 08/11/21 06:29 25 mcg DAILYBB STEFANIE Administration Metoprolol Succinate 50 mg 07/11/21 21:00 07/12/21 08:39 Metoprolol Succ 50mg Ext Rel Tab PO 08/10/21 20:59 50 mg BID STEFANIE Administration Valsartan 320 mg 07/12/21 09:00 07/12/21 08:39 Valsartan 80 Mg Tab PO 08/11/21 08:59 320 mg DAILY STEFANIE Administration NPO Date Last Intake of Fluids: 07/12/21 Time Last Intake of Fluids: 12:00 Date Last Intake of Solids: 07/11/21 Time Last Intake of Solids: 18:00 Past Medical History Medical History Adverse reaction to drug Alopecia Ambulatory dysfunction Bilateral knee pain Bilateral knee pain Brain tumor Breast cancer Breast cancer, right Cerebrovascular [place] disease Close exposure to 2019-nCoV Dental abscess Hearing loss of both ears due to cerumen impaction History of atrial fibrillation Hypertensive urgency Hypothyroidism Inflammatory arthritis Occipital neuralgia Paroxysmal atrial fibrillation Right ankle sprain Exercise / Class Metabolic Activity II 4-5 Yardwork/Stairs/Walk up hill Past Family History Family History Mother Heart disease Other No pertinent family history Past Surgical History Surgical History H/O cardiac radiofrequency ablation H/O right mastectomy H/O total hysterectomy 1970 Loose right total knee arthroplasty Pacemaker S/P hernia surgery 2004 Past Anesthesia History No Hx of Anesthesia Complications and No Family Hx of Anesthesia Complications History of PONV No Hx of PONV and No Hx of Motion Sickness Social History Smoking Status: Never smoker Do You Dip or Chew Tobacco: No Hx Alcohol Use: No Hx Substance Use: No Review of Systems denies fever/cough/ colds/ chest pain/ SOB/ CHASTITY denies CHASTITY Physical Exam Vital Signs Last Vital Signs Temp 36.9 C 07/12/21 07:23 Pulse 59 L 07/12/21 07:23 Resp 18 07/12/21 07:23 BP 170/76 H 07/12/21 07:23 Pulse Ox 93 07/12/21 07:23 ENMT Mouth: no TMJ abnormality and no dentition abnormality Thyromental Distance: > or= 3.5 Finger Breadths Mallampati Class: II Neck neck extension not limited Respiratory normal respiratory effort; no respiratory distress Auscultation: lungs clear to auscultation bilaterally Cardiovascular Rate/Rhythm: regular rate and regular rhythm Neurologic moves all extremities Psychiatric Orientation: alert and oriented x 3 Testing Laboratory Results 07/12/21 05:31 07/12/21 05:31 PT 10.5 Seconds (9.0-12.0) 07/11/21 11:55 INR 1.0 (0.9-1.1) 07/11/21 11:55 APTT 29.4 Seconds (21.0-31.0) 07/11/21 11:55
[2021-07-12] MEDS ORDERED: ATROPINE SULFATE 0.1 MG/ML 10ML SYR IV PRN (14:09)
[2021-07-12] MEDS ORDERED: fentaNYL citrate 100 MCG/2 ML VIAL IV PRN (14:09)
[2021-07-12] MEDS ORDERED: ePHEDrine sulfate 50 MG/ML AMP IV PRN (14:09)
[2021-07-12] MEDS ORDERED: ONDANSETRON INJ 2 MG/ML 2 ML VIAL IV PRN (14:09)
--- NOTE | 2021-07-12 14:20 | History & Physical Bridge Note ---
Date of Service July 12, 2021 History & Physical Bridge Note I have examined the patient, reviewed the History & Physical and in the interval since the performance of the History & Physical I have noted the following changes of clinical significance: no changes noted. OK for I&D and extraction of infected tooth. Meet with Nasrin her to review the plan--understanding expressed.
[2021-07-12] MEDS ORDERED: CHLORHEXIDINE GLUCONATE 0.12% 480 ML ONE (14:29)
--- NOTE | 2021-07-12 14:59 | Electrocardiogram Report ---
Test Reason : Blood Pressure : / mmHG Vent. Rate : 061 BPM Atrial Rate : 064 BPM P-R Int : 282 ms QRS Dur : 092 ms QT Int : 440 ms P-R-T Axes : 270 -01 002 degrees QTc Int : 442 ms Atrial-paced rhythm with prolonged AV conduction Nonspecific ST abnormality Abnormal ECG When compared with ECG of 06-MAR-2021 02:37, No significant change was found Confirmed by Jett Brown ([id number]) on 07/12/2021 2:59:21 PM Referred By: REFERRED SELF Confirmed By:Jett Brown
[2021-07-12] MEDS ORDERED: LABETALOL HCL IV 5 MG/ML 20ML IV ONE (15:03)
--- NOTE | 2021-07-12 15:30 | Operative Report ---
PG Post Operative Report Pre & Post Diagnosis Operation Date: 07/12/21 16:00 Pre-Op Diagnosis: DENTAL ABSCESS Post-Op Diagnosis: DENTAL ABSCESS I identified the patient and participated in the time-out.: Yes Procedure Operation Date: 07/12/21 16:00 Actual Procedures p Incision and drainage of face, removal of tooth #17 and #4(Left) - Amadeo Deleon DMD Surgeon Amadeo Deleon DMD Marketing Editor none Estimated Blood Loss 3 Findings Consistent with Post-Op Diagnosis acute left facial abscess Specimens none Drains none Anesthesia Type General Indications fractured and carious tooth # 17 Description of Procedure Incision and Drainage site---posterior mandible area/ sublingual and submandibular space CPT 01020 ICD 10 K12.2 CPT 76760 D7140 for tooth 4 and 17 Pre-op= Acute facial swelling left side of the face infected wisdom tooth # 17 and # 4 Once cleared for surgery general anesthesia was achieved, the eyes were protected by the anesthesia dept criteria.. A time out was take for patient ID, antibiotics, equipment and position verification once all agreed the procedure began. Local anesthesia was given into each area using Marcaine with a vasoconstrictor ( 1.8 ml per site). A throat pack was placed after the oral cavity was irrigated with saline. Once a surgical level of anesthesia was obtained and the local anesthesia was given time for the blocks the surgery was started. I turned my attention to the upper wisdom teeth first. Actual Procedures p Incision and Drainage Submandibular Abscess; Removal of Tooth #4 and 17 (Not Applicable) - Amadeo Deleon DMD Once cleared for surgery general anesthesia was achieved, the eyes were protected by the anesthesia dept criteria. A time out was take for patient ID, antibiotics, equipment and position verification once all agreed the procedure began. Local anesthesia using Marcaine with a vasoconstrictor ( 1.8 ml per site) given into right inferior alveolar nerve A throat pack was placed after the oral cavity was irrigated with saline. Once a surgical level of anesthesia was obtained and the local anesthesia was given time for the blocks the surgery was started. I turned my attention to the infection which was on the left side of the face The tongue was elevated and there was also swelling associated with tooth # 17 ( see CT scan report) Incision and Drainage site---posterior mandible area/ sublingual and submandibular space CPT 39055 Using a 15 blade an incision was made lateral to the alveolar ridge. Once the incision was made a lot of pus and serious fluid extruded from the site. A curved hemostat was carefully placed into the infected space along the lateral side of the lower jaw and into the Masticatory space. Some further drainage was now allowed to escape. I palpated the cheek and floor of the mouth and no further drainage was expressed. The area was irrigated with at least 100 ml of NS solution. I now turned my attention to remove the # 17 and # 4 Lower wisdom teeth # 17 D7140 The full thick muco-periosteal flap was made on the external oblique ridge to avoid the lingual nerve. The flap was reflected to expose the impacted tooth. The lingual plate was protected. The tooth was removed with a 301 elevator, the nerve was intact, there was no bleeding. The bone was trimmed, curetted, smoothed. A piece of Surgicel was placed and the flap was closed with a few 2-0 chromic sutures. Upper fractured # 4 [id number] The upper right fractured # 4 tooth was easily removed. The socket was curetted and a small piece of Surgicel was placed and sutured closed. Once the procedure was completed I inspected the sites to insure all bleeding was controlled. I removed the throat pack and suctioned the throat. Bilateral gauze pressure dressings were placed. All instrument and sponge count was correct. the patient was allowed to awake from the anesthesia. Once full awake the anesthesia tube was removed and the patient was taken to the recovery room with all vital sign stable. The patient tolerated the surgery very well. I will follow the patient in my office, Rx and instructions will be given upon discharge. I attest to the content of the Intraoperative Record and any orders documented therein. Any exceptions are noted below.
--- NOTE | 2021-07-12 15:50 | Anesthesiology Progress Note ---
Date of Service July 12, 2021 Anesthesia Post Procedure Vital Signs Vital Signs: Temp Pulse Resp BP Pulse Ox 07/12/21 07:23 36.9 C 59 L 18 170/76 H 93 07/11/21 22:37 72 139/79 07/11/21 21:11 36.6 C 65 16 187/73 H 96 07/11/21 19:25 36.2 C L 60 16 185/97 H 95 07/11/21 18:35 150/81 H 07/11/21 17:25 178/99 H Pain Intensity Head: Pain Intensity: 5 Transfer of Care Handoff Completed per policy Notes Mental Status: alert / awake / arousable and participated in evaluation Patient Amnestic to Procedure: Yes Nausea / Vomiting: adequately controlled Pain: adequately controlled Airway Patency, RR, SpO2: stable & adequate BP & HR: stable & adequate Hydration State: stable & adequate Anesthetic Complications: no major complications apparent and Pt Satisfied with anesthetic care
[2021-07-12] MEDS: hydrALAZINE HCL 20 MG/ML VIAL IV PRN (17:06)
[2021-07-12] MEDS: ROSUVASTATIN CALCIUM 10 MG TAB PO SCH (17:07)
[2021-07-12] MEDS: ACETAMINOPHEN 500 MG TAB PO PRN (18:55)
[2021-07-13] MEDS: AMPICILLIN/SULBACTAM SOD 3,000 MG in 0.9 % SODIUM CHLORIDE 100 ML IV SCH ×3 (01:03→12:57)
[2021-07-13] MEDS: LEVOTHYROXINE SODIUM 25 MCG TABLET PO SCH ×2 (05:11→06:12)
[2021-07-13] MEDS: ACETAMINOPHEN 500 MG TAB PO PRN (05:20)
[2021-07-13 07:09] LABS: Hematocrit (blood only) 35.2 % (37-47); Hemoglobin 11.5 g/dL (12.0-16.0); Mean Corpuscular Hemoglobin 28.9 pg (25-34); Mean Corpuscular Hgb Conc 32.7 g/dL (32-36); Mean Corpuscular Volume 88.4 fL (80-100); Mean Platelet Volume 9.2 fL (7.4-10.4); Platelet Count 230 K/uL (130-400); RDW Coefficient of Variation 14.7 % (11.5-14.5); RDW Standard Deviation 48.1 fL (36.4-46.3); Red Blood Count 3.98 M/uL (4.2-5.4); White Blood Count 6.56 K/uL (4.8-10.8)
[2021-07-13 07:31] LABS: BUN Creatinine Ratio 21.2 (10-20); Calcium 8.6 mg/dl (8.5-10.1); Creatinine Clr Calc Pharmacy 33.9 ml/min; Est GFR (African American) 48.7 ml/min; Magnesium 1.9 mg/dl (1.7-2.4); Potassium 4.5 mmol/L (3.5-5.1)
[2021-07-13] MEDS: hydroCHLOROthiazide 25 MG TAB PO SCH (08:43)
[2021-07-13] MEDS: VALSARTAN 80 MG TAB PO SCH (08:43)
[2021-07-13] MEDS: hydrALAZINE 10 MG TAB PO SCH ×2 (08:43→13:06)
[2021-07-13] MEDS: ROSUVASTATIN CALCIUM 10 MG TAB PO SCH ×2 (08:43→10:25)
[2021-07-13] MEDS: amLODIPine BESYLATE 5 MG TAB PO SCH (08:44)
[2021-07-13] MEDS: AMIODARONE 200 MG TAB PO SCH (08:44)
[2021-07-13] MEDS: CETIRIZINE HCL 10 MG TABLET PO SCH (08:44)
[2021-07-13] MEDS: METOPROLOL SUCC 50MG EXT REL TAB PO SCH (08:44)
--- NOTE | 2021-07-13 17:58 | Discharge Summary ---
Date of Service July 13, 2021 Admission HPI Per Admitting Provider 86-year-old female presents to the ER with worsening dental pain and concern for possible periodontal abscess patient has known issue with a left lower molar which is worsened over the last few days. On-call orofacial surgeon, Dr. Deleon, was contacted referred her to the ER and after review feels she needs the dental extraction. Patient takes apixaban and will need to have a day of washout before the extraction occurs. Patient is scheduled for extraction on 12 July. Otherwise the patient has a history of tachybradycardia syndrome with a pacemaker and a history of coronary artery disease. Most recently she is noted any symptoms of unstable angina or worsening exertional dyspnea. He does have some orthopnea which she says relates to previous issues that were occurring around a mastectomy for breast cancer where she just never was comfortable laying flat. She does not feel she gets short of breath laying flat but just prefers still sleep sitting up. She said no increase in weight or lower extremity edema. She has no problems in the past with anesthesia and she has had no recent bruising bleeding etc. She does have significant medication allergies. Principal Diagnosis 1. Dental abscess s/p I&D Discharge Exam General: Resting comfortably in her hospital bed. NAD. HEENT: Head is AT/NC. Buccal mucosa is moist and pink. Intact sutures to left lower gum. No drainage. Left mandibular region is slightly edematous but not erythematous or warm to touch Neck: No JVD. Negative hepatojugular reflex Cardiac: RRR with 1/6 MIYA Lungs: CTA without W/R/R Abdomen: Normoactive X4. Soft and nontender in all quadrants. Extremities: No peripheral clubbing cyanosis or edema Neuro: A&O X4. Cranial nerves II through XII are grossly intact. No focal neuro deficits Skin: No obvious skin lesions or rashes Psych: Appropriate affect. Pleasant and cooperative Discharge Data Allergies Allergy/AdvReac Type Severity Reaction Status Date / Time clindamycin Allergy Severe SHOCK Verified 07/11/21 14:17 clopidogrel Allergy Severe HIVES Verified 07/11/21 14:17 epinephrine Allergy Severe NUMBNESS Verified 07/11/21 14:17 codeine Allergy Unknown UNKNOWN Verified 07/11/21 14:17 ezetimibe Allergy Unknown UNKNOWN Verified 07/11/21 14:17 hydrocodone Allergy Unknown UNKNOWN Verified 07/11/21 14:17 levothyroxine Allergy Unknown UNKNOWN Verified 07/11/21 14:17 metronidazole Allergy Unknown LOSS OF Verified 07/11/21 14:17 PIGMENT IN SKIN. FATIGUE mupirocin Allergy Unknown WEAKNESS,NA Verified 07/11/21 14:17 USEATED oxycodone Allergy Unknown UNKNOWN Verified 07/11/21 14:17 sotalol Allergy Unknown SWOLLEN Verified 07/11/21 14:17 ANKLES/REDNESS ON RIGHT LEG ticlopidine Allergy Unknown RASH Verified 07/11/21 14:17 chocolate flavor Allergy Unknown Verified 07/11/21 14:17 lisinopril Allergy Unknown Verified 07/11/21 14:17 Uznzsbb-VPN-DaX Reductase AdvReac Unknown ACHY JOINTS Verified 07/11/21 14:17 Inhibitor [Wgfuvel-Uzl-Vcl Reductase Inhibitor] tramadol AdvReac Nausea Verified 07/11/21 14:17 Consultations 07/11/21 13:35 ED Decision to Admit Stat 07/11/21 15:25 Consult Oromaxillofacial Surgery Routine Procedures Performed Operation Date: 07/12/21 16:00 Actual Procedures p removal of tooth #17 and #4(Left) - Amadeo Deleon DMD s Incision and drainage of face, (Left) - Amadeo Deleon DMD Ordered Studies 07/11/21 12:09 CT soft tissue neck wo con Stat IMPRESSION: Skin thickening and subcutaneous stranding of the left lower face and upper neck consistent with cellulitis. No abscess. No soft tissue gas. The source for this infectious process is not entirely clear although could be odontogenic given a periapical lucency of a left mandibular molar. Hospital Course (1) Dental abscess: Patient admitted under recommendation of Dr. Deleon for dental abscess she will be on Unasyn antibiotic therapy. No airway issues will not employ any steroids. She does take apixaban and needed to have this held prior to her surgery. Her preoperative medical screening questions are negative for unstable angina or significant pulmonary disease. Likely medically optimized to proceed to surgery on 07/12/2021 CT soft tissue neck 07/11/21 Skin thickening and subcutaneous stranding of the left lower face and upper neck consistent with cellulitis. No abscess. No soft tissue gas. The source for this infectious process is not entirely clear although could be odontogenic given a periapical lucency of a left mandibular molar. Is s/p I&D of dental abscess done 07/12. No perioperative complications. Is now tolerating oral intake. Her white blood cell count has remained normal. She is afebrile. She is medically and hemodynamically stable for discharge to home Complete full course of antibiotic (Unasyn transitioned to Augmentin) Follow-up with Dr. Deleon as outlined Salt water gargles as outlined (2) ASCVD (arteriosclerotic cardiovascular disease): Patient with a history of ASCVD and hypertension. She also has previous history of MIs in the past. 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 He is maintained on amiodarone amlodipine hydralazine metoprolol and valsartan hydrochlorothiazide He typically follows with Dr. Brumfield Last echo in our system 2018 shows preserved ejection fraction mild pulmonary hypertension and mild to moderate mitral regurgitation (3) Atrial fibrillation: Currently paced Okay to resume Eliquis on the evening of 07/14 (4) Hypothyroidism: Maintained on Synthroid will be continued, last TSH checked May 07, 2021 is 3.8 which is normal At this point, patient medically hemodynamically stable for discharge to home Total Time Total Time Spent Total Time Spent (In Minutes): 35 minutes including time spent with patient, preparation of documentation, coordination of care Discharge Plan Discharge Items Patient Disposition: Home - Self-Care Reason For Visit: DENTAL ABSCESS Discharge Diagnosis: s/p I&D Condition on Discharge: Good Activity: Resume your previous activity Bathing: No limitations Exercise/Sports: Gradually increase as tolerated Weightbearing: Full weightbearing Non-emergency contact: Surgeon Call non-emergency contact if: your symptoms worsen, your temperature is above 101.5, your wound has increased redness and your wound pain has increased Follow-up/Referrals: Waldo Armstrong MD [Primary Care Provider] - Amadeo Deleon DMD [Physician] - 07/23/21 3:35 pm Diet: Full liquid and Clear liquid Diet Texture: Easy to Chew Diet Comment: dental soft when able Addtl Attending Provider Instructions: ADDITIONAL ACTIVITY RECOMMENDATIONS: * Start your Eliquis Tuesday night * [place] teeth after every meal. It is very important to keep your mouth clean to prevent infection. * Starting tonight rinse with the Peridex as directed then 2 x a day * it is very important to keep well hydrated, this prevents fever and possible dry socket pain SPECIAL CARE INSTRUCTIONS: *It is not uncommon that between day 2-4 that your swelling will be at its worst this is very normal, do not be alarmed. * Keep ice on the side of your face for the next 24 to 36 hours. This will help keep the swelling down. * After 36 hours, apply heat (hot water bottle or heating pad) for the next two days, as often as possible. * Tomorrow start rinsing your mouth with 1/2 teaspoon salt in 8 ounces warm water. This rinse should be used every 4-6 hours. * You may experience slight nausea. To prevent this, never take your medication on an empty stomach. If nauseated, take small sips of irma alvaro until you feel better; then you may start on applesauce and toast. * Some swelling is common. It should gradually decrease within 4-5 days. * A certain amount of bleeding is to be expected. It is often possible to control mild oozing by placing folded gauze over the area and biting down for 30 minutes. If you are unable to control excessive bleeding, call Dr Deleon at [phone] * You may experience some discomfort for a few days. If pain or swelling increases, Call Dr Deleon * Return to the office for a follow up check up on: * office address--[facility] [address]. phone # [phone] Complete the full course of antibiotics. Next dose is due tonight. Note that it is safe to resume your Eliquis tomorrow night (07/14). Can utilize Ultram as needed for pain. If pain is not controlled, call Dr. Deleon. Return to the ED if you develop any fevers or any new/worsening symptoms. Pending Studies at Discharge: No Stand-Alone Forms: My [facility], Opioid Pain Management, Smoking Cessation Medications and DC Order Prescriptions: New amoxicillin-pot clavulanate 875-125 mg tablet 1 tab PO BID Qty: 11 RF: 0 tramadol [Ultram] 50 mg tablet 50 mg PO Q8H PRN (Reason: pain) Qty: 12 RF: 0 Continued valsartan-hydrochlorothiazide 320-25 mg tablet 1 tab PO DAILY Qty: 90 RF: 3 levothyroxine 25 mcg tablet 25 mcg PO QAM Qty: 30 RF: 11 metoprolol succinate 50 mg tablet extended release 24 hr 50 mg PO BID Qty: 180 RF: 3 rosuvastatin 10 mg tablet 10 mg PO DAILY Qty: 30 RF: 5 Eliquis 5 mg tablet 5 mg PO BID Qty: 60 RF: 5 albuterol sulfate 90 mcg/actuation HFA aerosol inhaler 2 puff inhalation Q4H PRN (Reason: shortness of breath or wheezing) Qty: 6.7 RF: 0 amlodipine 2.5 mg tablet 2.5 mg PO DAILY RF: 0 hydralazine 10 mg tablet 20 mg PO TID RF: 0 amiodarone 200 mg tablet 200 mg PO DAILY Qty: 30 RF: 0 nitroglycerin 0.4 mg tablet, sublingual 0.4 mg SL Q5M PRN (Reason: chest pain) Qty: 25 RF: 0 epinephrine 0.15 mg/0.3 mL auto-injector 0.3 ml IM UD PRN (Reason: Allergic Reaction) RF: 0 levocetirizine [Xyzal] 5 mg Tablet 5 mg PO DAILY RF: 0 Discontinued penicillin V potassium 500 mg tablet 500 mg PO QID 5 Days Qty: 20 RF: 0 No Action mecobalamin (vitamin B12) 1,000 mcg tablet,disintegrating 1,000 mcg sublingual DAILY Qty: 30 RF: 11 amoxicillin-pot clavulanate 875-125 mg tablet 1 tab PO Q12H Qty: 10 RF: 0 Discharge Orders: Discharge Order (Routine); Ordered 07/13/21 Ordered By: Natividad Michael/Other Patient Handouts: Augmentin Oral Tablet 875 mg, Tramadol Oral Tablet 50 mg Admission Data Admit Date/Time: 07/11/21 13:00 Attending Provider: Skip Benson Admit Provider: Manny Gao Primary Care Provider: Waldo Armstrong Other Providers: Manny Gao ; Amadeo Deleon Other Interventions: Discharge Summary Assessment (RN) Last Done: 07/13/21 13:47 Supervising Physician Co-Signing Physician Notes Patient seen and examined at bedside. During face to face encounter, obtained phsyical examination and discussed hospital course. I discussed discharge plan with MENA Chou and Patient. I reviewed above note and agree with it. Patient treated for dental abscess. will be placed on oral antibiotics at discharge, Coding Level of Care Code 31644 OBS Care - Discharge Diagnoses Dental abscess K04.7 ASCVD (arteriosclerotic cardiovascular disease) I25.10 Atrial fibrillation I48.91 Hypothyroidism E03.9
== END 2021-07-13 14:38 | disposition home or self-care (01) ==
LOC: ED 10:56 → 3N 10:56 → SUATTDRO 13:00 → 3N 15:05
DX: Z88.5 Allergy status to narcotic agent; E03.9 Hypothyroidism, unspecified; Z79.01 Long term (current) use of anticoagulants; I48.91 Unspecified atrial fibrillation; I25.10 Atherosclerotic heart disease of native coronary artery without angina pectoris; Z79.899 Other long term (current) drug therapy; Z95.0 Presence of cardiac pacemaker; K04.7 Periapical abscess without sinus; Z96.651 Presence of right artificial knee joint; Z88.1 Allergy status to other antibiotic agents; Z88.8 Allergy status to other drugs, medicaments and biological substances; R22.0 Localized swelling, mass and lump, head

== ENCOUNTER 2023-05-26 18:26 | Observation (INO) ==
[2023-05-26 18:54] LABS: Basophils # (auto) 0.04 K/uL (0.00-0.20); Basophils % (auto) 0.4 %; Eosinophils # (auto) 0.12 K/uL (0.00-0.50); Eosinophils % (auto) 1.2 %; Hematocrit (blood only) 44.3 % (37.0-47.0); Hemoglobin 14.5 g/dl (12.0-16.0); Lymphocytes # (auto) 2.43 K/uL (1.20-3.40); Lymphocytes % (auto) 23.4 %; Mean Corpuscular Hemoglobin 28.8 pg (25.0-34.0); Mean Corpuscular Hgb Conc 32.7 g/dL (32.0-36.0); Mean Corpuscular Volume 88.1 fL (80.0-100.0); Mean Platelet Volume 9.9 fL (9.4-12.4); Monocytes # (auto) 1.05 K/uL (0.11-0.59); Monocytes % (auto) 10.1 %; Neutrophils # (auto) 6.64 K/uL (1.40-6.50); Neutrophils % (auto) 63.9 %; Platelet Count 233 K/uL (130-400); RDW Coefficient of Variation 14.4 % (11.5-14.5); RDW Standard Deviation 46.6 fL (36.4-46.3); Red Blood Count 5.03 M/uL (4.20-5.40); White Blood Count 10.38 K/ul (4.8-10.8)
[2023-05-26 19:06] LABS: INR 0.9 (0.9-1.1); Partial Thromboplastin Ratio 0.9; Partial Thromboplastin Time 24 Seconds (21-31); Prothrombin Time 10.3 Seconds (9.0-12.0)
[2023-05-26 19:32] LABS: Alanine Aminotransferase 12 U/L (7-52); BUN Creatinine Ratio 25.2 (10-20); Bilirubin,Total 1.3 mg/dl (0.2-1.0); Blood Urea Nitrogen 27 mg/dl (6-23); Calcium 8.9 mg/dl (8.6-10.3); Carbon Dioxide 25 mmol/L (21-32); Chloride 102 mmol/L (98-107); Est GFR (African American) 54.1 ml/min; Est GFR (Non-African American) 46.6 ml/min; Glucose 139 mg/dl (70-99(Fasting)); Total Protein 6.9 gm/dl (6.0-8.3); Troponin I High Sensitivity 51.3 pg/ml (0-14)
--- NOTE | 2023-05-26 19:51 | Emergency Department Note ---
Impression & Plan Elevated troponin ADMIT ED Provider Note HPI: History obtained from patient. The patient is a 88-year-old female with history of paroxysmal atrial fibrillation, currently on Eliquis, history of coronary artery disease, presents emergency department with a chief complaint of transient episodes of chest discomfort today. Patient states she had 3 separate episodes of substernal chest discomfort in the upper portion of her chest. Patient states the last episode lasted about 40 minutes and therefore she came to the ED to be assessed. On arrival here to the ED the patient is noted to be tachycardic and on my initial assessment appears to be in atrial flutter on the monitor with a rate of 128. Patient denies any sensation of palpitations. ROS: - Per HPI Differential Diagnosis: Acute coronary syndrome, aortic dissection, pulmonary embolism, tachyarrhythmia to include atrial fibrillation with RVR, SVT, ventricular tachycardia, amongst other potential pathologies. *Outpatient medications and allergy history reviewed. PE: General: Alert HEENT: Normocephalic, trachea midline Eyes: Extraocular eye movement is intact, no scleral erythema Pulmonary: Clear to auscultation bilaterally, no wheezing Cardio: Tachycardic rate with regular rhythm GI: Abdomen is soft to palpation : No suprapubic tenderness MSK: No evidence of trauma or malformation of the extremities, no edema Skin: No evidence of rash Neuro: Alert, no focal deficits Psychiatric: Cooperative INDEPENDENT INTERPRETATIONS: monitor and storage bin tender: (As interpreted by myself): - An order was placed for continuous cardiac monitoring - Patient was noted to be in atrial flutter with a rate of 120 EKG: (As interpreted by myself): Rate: 127 Rhythm: Atrial flutter with 2-1 block Intervals: Within normal limits ST changes: No ST elevation Time: 1833 Chest x-ray: (As interpreted by myself): No acute disease Interventions provided in ED: IV diltiazem bolus, IV metoprolol, IV diltiazem drip Medical Decision Making: IV was established and lab work obtained, patient was placed on quality assurance monitor final. Lab work shows no leukocytosis, hemoglobin is normal, platelet count is normal, CMP does not show any critical findings, troponin is initially elevated at 51.3. Chest x-ray does not show any acute disease per my interpretation. EKG shows evidence of atrial flutter with 2-1 block. No acute ischemic changes are noted per my interpretation. Patient denies any active chest pain. Low suspicion for acute coronary syndrome at this time. Suspect troponin is mildly elevated secondary to demand ischemia. Patient was given IV diltiazem bolus with some improvement in heart rate, additional dose of IV metoprolol also helped control heart rate in the low 100s. Given the patient's elevated troponin with tachyarrhythmia, [facility] service was consulted for admission. On my reassessment the patient is resting comfortably in bed, heart rate is improved to 105. Patient denies any chest pain currently. patient is in agreement for admission and she was placed for admission in stable condition. Consultants: -[facility] service Disposition discussion held by myself with: -Patient * CRITICAL CARE TIME: ( 36 ) minutes -Stabilization of tachyarrhythmia/atrial flutter requiring administration of IV rate control medications for improvement, time spent at the bedside, interpretation of diagnostic studies including EKG, consultation with other healthcare providers and arrangement of admission Diagnosis: 1. Atrial flutter, acute 2. Chest pain, acute 3. Elevated troponin, acute Disposition: Admission Sanjiv Ceballos DO Emergency Medicine Past Med/Surg History Medical History (Updated 05/27/23 @ 01:02 by Sanjiv Ceballos DO) Dyspnea Familial hyperlipidemia Abnormal thyroid blood test Vitamin D insufficiency Sleep walking Medication noncompliance due to cognitive impairment Chest heaviness Bilateral knee pain Occipital neuralgia Fatigue Anemia Thrombocytopenia Myalgia Vitamin B 12 deficiency Breast cancer Hypothyroidism Occipital neuralgia Cerebrovascular Moyamoya disease Brain tumor Bilateral knee pain Inflammatory arthritis Breast cancer, right Hypertensive urgency Right ankle sprain Alopecia Paroxysmal atrial fibrillation Adverse reaction to drug History of atrial fibrillation Surgical History Hx of tooth extraction 07/12/21 L molar S/P hernia surgery 2004 H/O right mastectomy H/O cardiac radiofrequency ablation Loose right total knee arthroplasty H/O total hysterectomy 1970 Pacemaker Family History Mother Heart disease Other No pertinent family history Social History Smoking Status: Never smoker Second Hand Exposure: No; Do You Dip or Chew Tobacco: No; Hx Alcohol Use: No Hx Substance Use: No Preferred Language: Armenian Communication Ability: Effective Visual Impairment: No Limitations Hearing Ability: Normal Paint Process Engineer Required: No Beliefs That Will Affect Care: None marital status: Current Living Situation: Spouse 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 , 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 How many Children do You have: 3 Feels Safe at Home: Yes Childhood Exposure to Second-Hand Smoke: Yes Diet: regular during the past year weight has: remained stable Dental Care, Regularly: Yes Physical Activity Frequency: 5-6 Times per Week Seatbelt Use: always Assistive Devices: None Allergies Allergies Allergy/AdvReac Type Severity Reaction Status Date / Time clindamycin Allergy Severe SHOCK Verified 05/26/23 21:58 clopidogrel Allergy Severe HIVES Verified 05/26/23 21:58 epinephrine Allergy Severe NUMBNESS Verified 05/26/23 21:58 codeine Allergy Unknown UNKNOWN Verified 05/26/23 21:58 ezetimibe Allergy Unknown UNKNOWN Verified 05/26/23 21:58 hydrocodone Allergy Unknown UNKNOWN Verified 05/26/23 21:58 levothyroxine Allergy Unknown UNKNOWN Verified 05/26/23 21:58 metronidazole Allergy Unknown LOSS OF Verified 05/26/23 21:58 PIGMENT IN SKIN. FATIGUE mupirocin Allergy Unknown WEAKNESS,NA Verified 05/26/23 21:58 USEATED oxycodone Allergy Unknown UNKNOWN Verified 05/26/23 21:58 sotalol Allergy Unknown SWOLLEN Verified 05/26/23 21:58 ANKLES/REDNESS ON RIGHT LEG ticlopidine Allergy Unknown RASH Verified 05/26/23 21:58 lisinopril Allergy Unknown Verified 05/26/23 21:58 [id number]-ALF-UgN Reductase AdvReac Unknown ACHY JOINTS Verified 05/26/23 21:58 Inhibitor [Tkgyklf-Qvx-Pru Reductase Inhibitor] tramadol AdvReac Nausea Verified 05/26/23 21:58 Home Meds Home Medications Medication Instructions Recorded Confirmed amiodarone 200 mg tablet 200 mg PO DAILY #30 tabs 07/24/18 05/26/23 acetaminophen 325 mg tablet 650 mg PO QID PRN Fever Or Pain 10/12/21 05/26/23 Previous Rx's Medication Instructions Recorded mecobalamin (vitamin B12) 1,000 1,000 mcg sublingual DAILY #90 tabs 08/13/21 mcg disintegrating tablet,sublingual aspirin 81 mg tablet,delayed 81 mg PO DAILY #30 tabs 06/29/22 release hydralazine 50 mg tablet 50 mg PO TID #270 tabs 10/18/22 apixaban 5 mg tablet (Eliquis) 5 mg PO BID #60 tabs 11/15/22 rosuvastatin 10 mg tablet 10 mg PO DAILY #90 tabs 04/21/23 valsartan 320 1 tab PO DAILY #90 tabs 05/09/23 mg-hydrochlorothiazide 25 mg tablet metoprolol succinate 50 mg 50 mg PO BID #180 tabs 05/10/23 tablet,extended release 24 hr Results & Data (ED) Vital Signs Vital Signs - 24 hr 05/26/23 18:29 05/26/23 19:35 05/26/23 19:54 Temperature 36.5 C Temperature Source Temporal Artery Scan Pulse Rate 128 H 127 H Pulse Rate [Finger] 130 H Pulse Rate from SpO2 Sensor Pulse Rhythm Regular Respiratory Rate 20 20 Respiratory Effort / Characteristics Non-Labored Spontaneous Non-Labored Spontaneous Respiratory Depth Normal Normal Respiratory Pattern Regular Blood Pressure 138/84 Blood Pressure [Left Arm] 111/80 Blood Pressure Mean 102 Blood Pressure Mean [Left Arm] 90 Blood Pressure Position [Left Arm] Sitting Pulse Oximetry 97 96 Oxygen Delivery Method Room Air Room Air Sepsis Recent Fever Within 48 Hours No Sepsis New/Unexplained Change in Mental Status No Sepsis Action Taken by Nursing No Action Required 05/26/23 19:56 05/26/23 20:00 05/26/23 20:01 Temperature Temperature Source Pulse Rate 105 H Pulse Rate [Finger] Pulse Rate from SpO2 Sensor 111 H Pulse Rhythm Respiratory Rate 15 Respiratory Effort / Characteristics Respiratory Depth Respiratory Pattern Blood Pressure 119/86 Blood Pressure [Left Arm] Blood Pressure Mean 111 Blood Pressure Mean [Left Arm] Blood Pressure Position [Left Arm] Pulse Oximetry 93 92 Oxygen Delivery Method Room Air Room Air Sepsis Recent Fever Within 48 Hours Sepsis New/Unexplained Change in Mental Status Sepsis Action Taken by Nursing 05/26/23 20:01 05/26/23 20:01 05/26/23 20:27 Temperature Temperature Source Pulse Rate 111 H 120 H Pulse Rate [Finger] Pulse Rate from SpO2 Sensor 113 H Pulse Rhythm Respiratory Rate 23 Respiratory Effort / Characteristics Respiratory Depth Respiratory Pattern Blood Pressure 119/86 119/86 Blood Pressure [Left Arm] Blood Pressure Mean 111 Blood Pressure Mean [Left Arm] Blood Pressure Position [Left Arm] Pulse Oximetry 94 Oxygen Delivery Method Sepsis Recent Fever Within 48 Hours Sepsis New/Unexplained Change in Mental Status Sepsis Action Taken by Nursing 05/26/23 20:30 05/26/23 20:31 05/26/23 20:31 Temperature Temperature Source Pulse Rate 119 H 103 H Pulse Rate [Finger] Pulse Rate from SpO2 Sensor 117 H 104 H Pulse Rhythm Respiratory Rate 20 22 Respiratory Effort / Characteristics Respiratory Depth Respiratory Pattern Blood Pressure 127/104 H Blood Pressure [Left Arm] Blood Pressure Mean 109 Blood Pressure Mean [Left Arm] Blood Pressure Position [Left Arm] Pulse Oximetry 93 92 Oxygen Delivery Method Room Air Sepsis Recent Fever Within 48 Hours Sepsis New/Unexplained Change in Mental Status Sepsis Action Taken by Nursing 05/26/23 21:00 05/26/23 21:00 05/26/23 21:30 Temperature Temperature Source Pulse Rate 128 H 126 H Pulse Rate [Finger] Pulse Rate from SpO2 Sensor 125 H 126 H Pulse Rhythm Respiratory Rate 22 23 Respiratory Effort / Characteristics Respiratory Depth Respiratory Pattern Blood Pressure 139/100 Blood Pressure [Left Arm] Blood Pressure Mean 105 Blood Pressure Mean [Left Arm] Blood Pressure Position [Left Arm] Pulse Oximetry 94 94 Oxygen Delivery Method Room Air Sepsis Recent Fever Within 48 Hours Sepsis New/Unexplained Change in Mental Status Sepsis Action Taken by Nursing 05/26/23 21:30 Temperature Temperature Source Pulse Rate Pulse Rate [Finger] Pulse Rate from SpO2 Sensor Pulse Rhythm Respiratory Rate Respiratory Effort / Characteristics Respiratory Depth Respiratory Pattern Blood Pressure 134/102 H Blood Pressure [Left Arm] Blood Pressure Mean 110 Blood Pressure Mean [Left Arm] Blood Pressure Position [Left Arm] Pulse Oximetry Oxygen Delivery Method Sepsis Recent Fever Within 48 Hours Sepsis New/Unexplained Change in Mental Status Sepsis Action Taken by Nursing Laboratory Data 05/26/23 18:40 05/26/23 20:41 Lab Results 05/26/23 05/26/23 Range/Units 18:40 20:41 WBC 10.38 (4.8-10.8) K/ul RBC 5.03 (4.20-5.40) M/uL Hgb 14.5 (12.0-16.0) g/dl Hct 44.3 (37.0-47.0) % MCV 88.1 (80.0-100.0) fL MCH 28.8 (25.0-34.0) pg MCHC 32.7 (32.0-36.0) g/dL RDW Std Deviation 46.6 H (36.4-46.3) fL RDW Coeff of [place] 14.4 (11.5-14.5) % Plt Count 233 (130-400) K/uL MPV 9.9 (9.4-12.4) fL Immature Gran % (Auto) 1.0 % Neut % (Auto) 63.9 % Lymph % (Auto) 23.4 % [place] % (Auto) 10.1 % Eos % (Auto) 1.2 % Baso % (Auto) 0.4 % Neut # (Auto) 6.64 H (1.40-6.50) K/uL Lymph # (Auto) 2.43 (1.20-3.40) K/uL [place] # (Auto) 1.05 H (0.11-0.59) K/uL Eos # (Auto) 0.12 (0.00-0.50) K/uL Baso # (Auto) 0.04 (0.00-0.20) K/uL Immature Gran # (Auto) 0.10 (0.01-0.20) K/uL PT 10.3 (9.0-12.0) Seconds INR 0.9 (0.9-1.1) APTT 24 (21-31) Seconds PTT Ratio 0.9 Sodium TNP 139 Potassium TNP 3.8 Chloride 102 (98-107) mmol/L Carbon Dioxide 25 (21-32) mmol/L Anion Gap TNP BUN 27 H (6-23) mg/dl Creatinine 1.07 (0.6-1.2) mg/dl Est Cr Clr Drug Dosing Not Reportable Est GFR ( Amer) 54.1 ml/min Est GFR (Non-Af Amer) 46.6 ml/min BUN/Creatinine Ratio 25.2 H (10-20) Glucose 139 H (70-99(Fasting)) mg/dl Calcium 8.9 (8.6-10.3) mg/dl Total Bilirubin 1.3 H (0.2-1.0) mg/dl AST TNP ALT 12 (7-52) U/L Alkaline Phosphatase TNP 69 Troponin I High Sens 51.3 H* 81.4 H* D (0-14) pg/ml Total Protein 6.9 (6.0-8.3) gm/dl Albumin TNP 3.5 Globulin TNP Albumin/Globulin Ratio TNP Administered Medications Diltiazem HCl 125 mg/ Dextrose 125 mls @ 5 mls/hr IV .Q24H STEFANIE; Protocol Stop: 06/25/23 21:44 Last Admin: 05/26/23 21:58 Dose: 5 mg/hr, 5 mls/hr Documented By: GISSELLE Co-signed By: CPB Discontinued Medications Aspirin (Aspirin Chew 324 Mg) 324 mg PO NOW STA Stop: 05/26/23 20:27 Last Admin: 05/26/23 20:31 Dose: 324 mg Documented By: GISSELLE Diltiazem HCl (Diltiazem Hcl 5 Mg/Ml 5 Ml Vial) 10 mg IV NOW STA Stop: 05/26/23 19:50 Last Admin: 05/26/23 19:52 Dose: 10 mg Documented By: GISSELLE Co-signed By: CIERRA Ioversol (Optiray 320 125ml) 125 ml IV ONCE ONE Stop: 05/27/23 00:51 Last Admin: 05/27/23 00:50 Dose: 116 ml Documented By: ALONA Metoprolol Tartrate (Metoprolol Tartrate 1 Mg/Ml Vial) 5 mg IV NOW STA Stop: 05/26/23 20:25 Last Admin: 05/26/23 20:27 Dose: 5 mg Documented By: GISSELLE Miscellaneous (Stat Iv Infusion Titration Per Protocol) 1 each N/A NOW STA Stop: 05/26/23 21:32 Last Admin: 05/26/23 22:01 Dose: Not Given Documented By: GISSELLE Discharge Plan Visit Data Chief Complaint: Chest Pain Stated Complaint: CHEST PAIN ED Provider: Sanjiv Ceballos Discharge Problem: Elevated troponin Discharge Instructions Interventions: ED Discharge Assessment Last Done: 05/26/23 23:13
[2023-05-26] MEDS: dilTIAZem HCl 5 MG/ML 5 ML VIAL IV STA (19:52)
[2023-05-26] MEDS: METOPROLOL TARTRATE 1 MG/ML VIAL IV STA (20:27)
[2023-05-26] MEDS: ASPIRIN CHEW 324 MG PO STA (20:31)
--- NOTE | 2023-05-26 21:48 | History & Physical Report ---
"Date of Service May 26, 2023 Assessment & Plan (1) Dyspnea: (2) Chest heaviness: (3) Familial hyperlipidemia: (4) Anemia: (5) On anticoagulant therapy: (6) ASCVD (arteriosclerotic cardiovascular disease): (7) Hypothyroidism: (8) Hypertension: (9) Paroxysmal atrial fibrillation: (10) Chronic diastolic heart failure: Plan Summary: Debby is an 88F w/ PMH of HLD, R Breast Cancer s/p mastectomy, anemia, ASCVD, hypothyroidism, hypertension, paroxysmal A Fib on Eliquis s/p ablation, diastolic heart failure, pseudogout, and osteoarthritis who presents for evaluation of chest heaviness and dyspnea. ED Course: Cardizem, Aspirin, IV Metoprolol New Chest Pressure | New Dyspnea * Hx of ACS, CO x 2, troponin elevated to 81.4, EKG w/ new A Flutter (rate 120- 130s) no acute ST or T wave changes * Recently Elevated D-Dimer 1030 on 05/10/23, eval at OSH due to dyspnea/chest pain negative but w/o CTA * Ongoing anticoagulation w/ Eliquis, last dose this AM * Presentation concerning for PE (though low likelihood) vs ACS * Provide O2 PRN * Continue home beta cristin, aspirin, and statin * Maintain K>4/Mg > 2 * Avoid NSAIDs * Trend troponin, EKG for chest pain * Echocardiogram ordered, pending * CTA PE protocol ordered, pending * Consulted cardiology, appreciate recommendations * Transitioned to Heparin ggt incase need for cath New Atrial Flutter w/ Tachycardia | Atrial Fibrillation on Eliquis * Patient w/ history of Atrial Fibrillation s/p ablation in 2016 on Amiodarone and Eliquis * EKG on presentation indicating Atrial Flutter w/ rates 120s-130s * Cardizem drip started in ED, continue on admission * Continue home HCTZ-Valsartan, Amiodarone and Metoprolol, hold Hydralazine * Consulted cardiology, appreciate recommendations Chronic Conditions: * CAD: Continue Metoprolol, Aspirin and Statin * HTN: Antihypertensives as above, Hydralazine held * Diastolic CHF: No active diuretic use * OA: Tylenol PRN Code Status:Full Diet:NPO IVF:None DVT PPx:Heparin ggt CM: None Dispo: PCU/tele History of Present Illness Primary Care Provider: MD Debby Iqbal is an F w/ PMH of HLD, R Breast Cancer s/p mastectomy, anemia, ASCVD, hypothyroidism, hypertension, paroxysmal A Fib on Eliquis s/p ablation, diastolic heart failure, pseudogout, and osteoarthritis who presents for evaluation of chest heaviness and dyspnea. Patient notes that over the last week she has been having episodic chest pains which occur 2-3 tiems per day and rarely last more than a few moments. She describes the feeling as a pressure in the top of her chest over the sternum. She notes increasing dyspnea and feels as though she is running out of air when she talks. She denies crushing/stabbing chest pain or pain radiating to the jaw or arm. She notes a history of CAD w/ two prior MIs (> 25 years ago), she is unable to correlate these symptoms with prior MIs. She denies nausea, vomitting, or diaphoresis. She is not experiencing any bowel/bladder changes. She denies any lower extremity edema, claudication, or orthopnea. She us unable to assess for dyspnea on exertion as she is largely sedentary, she does not feel her CP is worse when walking. She notes that she had similar symptoms 6 weeks ago and was seen outpatient, at this point in time a D-dimer was checked and it was elevated. Becuase of this, she was sent to the ED for evaluation for a PE, a chest XR was performed, but no CTA. She subsequently saw her Rubber Mill Tender (note on file). Patient denies any recent medication changes, last dose of Metoprolol and Eliquis were this morning. She has had no new dieteray changes, notes she has no GERD symptoms or dysphagia. She denies any recent headaches, lightheadedness, or dizziness. Allergies Allergy/AdvReac Type Severity Reaction Status Date / Time clindamycin Allergy Severe SHOCK Verified 05/26/23 21:58 clopidogrel Allergy Severe HIVES Verified 05/26/23 21:58 epinephrine Allergy Severe NUMBNESS Verified 05/26/23 21:58 codeine Allergy Unknown UNKNOWN Verified 05/26/23 21:58 ezetimibe Allergy Unknown UNKNOWN Verified 05/26/23 21:58 hydrocodone Allergy Unknown UNKNOWN Verified 05/26/23 21:58 levothyroxine Allergy Unknown UNKNOWN Verified 05/26/23 21:58 metronidazole Allergy Unknown LOSS OF Verified 05/26/23 21:58 PIGMENT IN SKIN. FATIGUE mupirocin Allergy Unknown WEAKNESS,NA Verified 05/26/23 21:58 USEATED oxycodone Allergy Unknown UNKNOWN Verified 05/26/23 21:58 sotalol Allergy Unknown SWOLLEN Verified 05/26/23 21:58 ANKLES/REDNESS ON RIGHT LEG ticlopidine Allergy Unknown RASH Verified 05/26/23 21:58 lisinopril Allergy Unknown Verified 05/26/23 21:58 Qswwkmv-SUU-HtA Reductase AdvReac Unknown ACHY JOINTS Verified 05/26/23 21:58 Inhibitor [Kledqla-Skc-Oxv Reductase Inhibitor] tramadol AdvReac Nausea Verified 05/26/23 21:58 Home Medications Medication Instructions Recorded Confirmed Type amiodarone 200 mg tablet 200 mg PO DAILY #30 tabs 07/24/18 05/26/23 History mecobalamin (vitamin B12) 1,000 1,000 mcg sublingual DAILY #90 tabs 08/13/21 05/26/23 Rx mcg disintegrating tablet,sublingual acetaminophen 325 mg tablet 650 mg PO QID PRN Fever Or Pain 10/12/21 05/26/23 History aspirin 81 mg tablet,delayed 81 mg PO DAILY #30 tabs 06/29/22 05/26/23 Rx release hydralazine 50 mg tablet 50 mg PO TID #270 tabs 10/18/22 05/26/23 Rx apixaban 5 mg tablet (Eliquis) 5 mg PO BID #60 tabs 11/15/22 05/26/23 Rx rosuvastatin 10 mg tablet 10 mg PO DAILY #90 tabs 04/21/23 05/26/23 Rx valsartan 320 1 tab PO DAILY #90 tabs 05/09/23 05/26/23 Rx mg-hydrochlorothiazide 25 mg tablet metoprolol succinate 50 mg 50 mg PO BID #180 tabs 05/10/23 05/26/23 Rx tablet,extended release 24 hr Past Med/Surg History Medical History (Updated 05/27/23 @ 01:02 by Sanjiv Ceballos DO) Dyspnea Familial hyperlipidemia Abnormal thyroid blood test Vitamin D insufficiency Sleep walking Medication noncompliance due to cognitive impairment Chest heaviness Bilateral knee pain Occipital neuralgia Fatigue Anemia Thrombocytopenia Myalgia Vitamin B 12 deficiency Breast cancer Hypothyroidism Occipital neuralgia Cerebrovascular Moyamoya disease Brain tumor Bilateral knee pain Inflammatory arthritis Breast cancer, right Hypertensive urgency Right ankle sprain Alopecia Paroxysmal atrial fibrillation Adverse reaction to drug History of atrial fibrillation Surgical History Hx of tooth extraction 07/12/21 L molar S/P hernia surgery 2004 H/O right mastectomy H/O cardiac radiofrequency ablation Loose right total knee arthroplasty H/O total hysterectomy 1970 Pacemaker Family History Mother Heart disease Other No pertinent family history Social History Smoking Status: Never smoker Second Hand Exposure: No; Do You Dip or Chew Tobacco: No; Hx Alcohol Use: No Hx Substance Use: No Preferred Language: Swedish Communication Ability: Effective Visual Impairment: No Limitations Hearing Ability: Normal Tooling Manager Required: No Beliefs That Will Affect Care: None marital status: Current Living Situation: Spouse 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 , 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 How many Children do You have: 3 Other Information That Helps Us Care for You: No Feels Safe at Home: Yes Safety Concerns: Feels Safe At This Time Childhood Exposure to Second-Hand Smoke: Yes Diet: regular during the past year weight has: remained stable Dental Care, Regularly: Yes Physical Activity Frequency: 5-6 Times per Week Seatbelt Use: always Assistive Devices: Glasses Physical Exam Physical Exam: Gen: NAD, alert, interactive HEENT: Supple, no LAD, no thyromegaly, no JVD Resp:Non-labored, no wheezing/rhonchi/rales, CTAB CV:tachycardic, regular rhythm, normal S1/S2, no M/R/G Abd: Soft, non-distended, no TTP, normoactive bowels, no masses Extr: 2+ dp bilaterally, no edema Skin: No rashes lesions or erythema Results & Data Results & Data Vital Signs (Past 12 Hours) Vital Signs Temp Pulse Pulse Resp BP BP Pulse Ox 05/26/23 21:30 134/102 H 05/26/23 21:30 126 H 23 94 05/26/23 21:00 128 H 22 94 05/26/23 21:00 139/100 05/26/23 20:31 103 H 22 92 05/26/23 20:31 127/104 H 05/26/23 20:30 119 H 20 93 05/26/23 20:27 120 H 119/86 05/26/23 20:01 111 H 23 94 05/26/23 20:01 119/86 05/26/23 20:01 119/86 05/26/23 20:00 105 H 15 92 05/26/23 19:56 93 05/26/23 19:54 127 H 05/26/23 19:35 130 H 20 111/80 96 05/26/23 18:29 36.5 C 128 H 20 138/84 97 O2 Del Method 05/26/23 21:30 05/26/23 21:30 Room Air 05/26/23 21:00 05/26/23 21:00 05/26/23 20:31 05/26/23 20:31 05/26/23 20:30 Room Air 05/26/23 20:27 05/26/23 20:01 05/26/23 20:01 05/26/23 20:01 05/26/23 20:00 Room Air 05/26/23 19:56 Room Air 05/26/23 19:54 05/26/23 19:35 Room Air 05/26/23 18:29 Room Air Supervising Physician Co-Signing Physician Notes I personally saw and examined the patient. I verified all leung points and agree with resident physician Dr Ирина Riley, with the following exceptions and/or additions: 88 year old female presents to the ER with fatigue, chest pressure and shortness of breath. Known history of a. fib s/p ablation in 2016 per prior cardiology note. No history of atrial flutter. O/E HS increased rate, irregular rhythm, no murmurs, Chest CTAB, Abdo SNT A/P Chest pressure / shortness of breath - ACS vs. atrial flutter RVR, suspect the later but in case of need for catheterization switch Eliquis to heparin. Serial troponins overnight. TTE. consult cardiology Atrial flutter - continue on diltiazem IV drip overnight in addition to her usual metoprolol and amiodarone, consider cardioversion in AM, pacemaker interrogation Resident Activity Tracking Resident Involvement: Resident Care Provided Care Provided: Adult Hospital Medicine (night) (8) Hypertension Hypertension type: unspecified secondary hypertension Qualified Code(s): I15.9 - Secondary hypertension, unspecified"
[2023-05-26] MEDS: dilTIAZem HCL 125 MG in DEXTROSE 5% 100 ML IV SCH (21:58)
[2023-05-26] MEDS: STAT IV Infusion **Titration per Protocol STA (22:01)
[2023-05-26] MEDS ORDERED: POLYETHYLENE (MIRALAX) 17 GM PACK PO PRN (23:12)
[2023-05-26] MEDS ORDERED: ACETAMINOPHEN 325 MG TAB PO PRN (23:12)
[2023-05-27 00:19] LABS: Albumin Level 3.5 gm/dl (3.4-5.0); Potassium 3.8 mmol/L (3.5-5.1)
[2023-05-27] MEDS: OPTIRAY 320 125ml IV ONE (00:50)
[2023-05-27] MEDS: Patient's HEIGHT &/or WEIGHT Needed STA (02:14)
[2023-05-27] MEDS: Heparin IV Adult Wt-Based Standard *NO* INITIAL Bolus Protocol IV STA (02:26)
[2023-05-27] MEDS: HEPARIN SODIUM/DEXTROSE 25,000 UNITS/500 ML BAG IV SCH (02:26)
[2023-05-27] MEDS: METOPROLOL SUCC 50MG EXT REL TAB PO SCH (02:26)
--- NOTE | 2023-05-27 03:43 | CT Scan Report ---
Exam(s): CTA CHEST IV Amt: 116 ml optiray 320 EXAM: CT Angiography Chest With Intravenous Contrast CLINICAL HISTORY: Reason for exam: PE. TECHNIQUE: Axial computed tomographic angiography images of the chest with intravenous contrast. CTDI is 23.66 mGy and DLP is 669.41 mGy-cm. Automated exposure control was utilized for the study. A dose lowering technique was utilized adhering to the principles of ALARA. MIP reconstructed images were created and reviewed. COMPARISON: Noncontrast chest CT dated 08/27/21 FINDINGS: Pulmonary arteries: Unremarkable. No pulmonary embolism. Aorta: No acute findings. No thoracic aortic aneurysm. Lungs: Stable appearance of the 1.9 cm subpleural right lower lobe density, likely round atelectasis or scarring. Bibasilar atelectasis/chronic changes. No mass. Pleural space: Unremarkable. No significant effusion. No pneumothorax. Heart: Cardiomegaly. Stable. No significant pericardial effusion. No evidence of RV dysfunction. Coronary calcifications. Mediastinum: Moderate hiatal hernia. Bones/joints: No acute fracture. No dislocation. Soft tissues: Unremarkable. Lymph nodes: Unremarkable. No enlarged lymph nodes. IMPRESSION: 1. No evidence of pulmonary embolism. 2. Moderate hiatal hernia. 3. Stable appearance of the 1.9 cm subpleural right lower lobe density, likely round atelectasis or scarring. 4. Stable cardiomegaly. Electronically signed by: Jorge Luis Pérez M.D. 05/27/23 03:42 AM
--- NOTE | 2023-05-27 06:37 | Billing Data ---
Date of Service May 26, 2023 Coding Level of Care Code 82607 INT INP/OBS CARE
--- NOTE | 2023-05-27 07:26 | XRay Report ---
SINGLE VIEW CHEST CLINICAL HISTORY: Atypical chest pain FINDINGS: A PA chest radiograph is compared to study dated 03/06/2021 and correlated with chest CT javier ed 08/27/2021. A hiatal hernia is noted. A 2-lead cardiac pacemaker is unchanged in position. The heart is enlarged noting atherosclerotic calcification of the thoracic aorta. The pulmonary vasculature is noncongested. Chronic interstitial thickening is similar to previous. There is bibasilar scarring/at electasis. No airspace consolidation or large pleural effusion is identified. No pneumothorax is seen . The skeletal structures are osteopenic. The bony thorax is grossly intact. IMPRESSION: 1. Cardiomegaly and cardiac pacemaker without radiographic evidence of congestive failure. 2. No airspace consolidation or large pleural effusion is identified. ACT 112: Negative or not required by law. Electronically signed by: Waldo Wilson M.D. 05/27/2023 7:25 AM
[2023-05-27] MEDS: VALSARTAN 80 MG TAB PO SCH (08:01)
[2023-05-27] MEDS: AMIODARONE 200 MG TAB PO SCH (08:01)
[2023-05-27] MEDS: ASPIRIN 81 MG ECTAB PO SCH (08:01)
[2023-05-27] MEDS: hydroCHLOROthiazide 25 MG TAB PO SCH (08:02)
[2023-05-27] MEDS: ROSUVASTATIN CALCIUM 10 MG TAB PO SCH (08:02)
[2023-05-27 09:05] LABS: Hematocrit (blood only) 39.2 % (37.0-47.0); Mean Corpuscular Hgb Conc 33.2 g/dL (32.0-36.0); Mean Corpuscular Volume 87.3 fL (80.0-100.0); Mean Platelet Volume 10.3 fL (9.4-12.4); Platelet Count 217 K/uL (130-400); RDW Coefficient of Variation 14.4 % (11.5-14.5); RDW Standard Deviation 46.3 fL (36.4-46.3); Red Blood Count 4.49 M/uL (4.20-5.40); White Blood Count 8.65 K/ul (4.8-10.8)
[2023-05-27 09:08] LABS: ANTI-Xa, UFH(UnfractionatedHep 0.66 IU/ml (0.3-0.7)
[2023-05-27 09:16] LABS: Albumin Globulin Ratio 1.3 (0.9-2); Albumin Level 3.4 gm/dl (3.4-5.0); BUN Creatinine Ratio 26.6 (10-20); Bilirubin,Total 1.1 mg/dl (0.2-1.0); Calcium 8.6 mg/dl (8.6-10.3); Creatinine Clr Calc Pharmacy 42.3 ml/min; Est GFR (African American) 63.2 ml/min; Est GFR (Non-African American) 54.5 ml/min; Globulin 2.6 gm/dl (2.5-4.0); Potassium 3.8 mmol/L (3.5-5.1)
--- NOTE | 2023-05-27 11:51 | Anesthesiology Consultation ---
Date of Service May 27, 2023 Assessment & Plan (1) Encounter for pre-operative examination: Chart Review Chart Review: Acceptable Risk for Surgery, Patient NOT seen in Pre Admission Testing and data entry clerk initiated Consults Requested none Proposed Anesthesia Anesthesia Type: MAC History Surgery Operation Date: 05/27/23 13:00 Proposed Procedures p Cardioversion Certified Diabetes Educator w/Anesthesia - Elmer Jeong MD Height/Weight Height: 5 ft 1 in Weight: 87.3 kg Allergies Allergy/AdvReac Type Severity Reaction Status Date / Time clindamycin Allergy Severe SHOCK Verified 05/26/23 21:58 clopidogrel Allergy Severe HIVES Verified 05/26/23 21:58 epinephrine Allergy Severe NUMBNESS Verified 05/26/23 21:58 codeine Allergy Unknown UNKNOWN Verified 05/26/23 21:58 ezetimibe Allergy Unknown UNKNOWN Verified 05/26/23 21:58 hydrocodone Allergy Unknown UNKNOWN Verified 05/26/23 21:58 levothyroxine Allergy Unknown UNKNOWN Verified 05/26/23 21:58 metronidazole Allergy Unknown LOSS OF Verified 05/26/23 21:58 PIGMENT IN SKIN. FATIGUE mupirocin Allergy Unknown WEAKNESS,NA Verified 05/26/23 21:58 USEATED oxycodone Allergy Unknown UNKNOWN Verified 05/26/23 21:58 sotalol Allergy Unknown SWOLLEN Verified 05/26/23 21:58 ANKLES/REDNESS ON RIGHT LEG ticlopidine Allergy Unknown RASH Verified 05/26/23 21:58 lisinopril Allergy Unknown Verified 05/26/23 21:58 Jawpjhd-BKO-DxG Reductase AdvReac Unknown ACHY JOINTS Verified 05/26/23 21:58 Inhibitor [Zrlzfaa-Uwf-Pgg Reductase Inhibitor] tramadol AdvReac Nausea Verified 05/26/23 21:58 Medications Home Medications Medication Instructions Recorded Confirmed Last Taken amiodarone 200 mg tablet 200 mg PO DAILY #30 tabs 07/24/18 05/26/23 07/11/21 mecobalamin (vitamin B12) 1,000 1,000 mcg sublingual DAILY #90 tabs 08/13/21 05/26/23 Unknown mcg disintegrating tablet,sublingual acetaminophen 325 mg tablet 650 mg PO QID PRN Fever Or Pain 10/12/21 05/26/23 Unknown aspirin 81 mg tablet,delayed 81 mg PO DAILY #30 tabs 06/29/22 05/26/23 Unknown release hydralazine 50 mg tablet 50 mg PO TID #270 tabs 10/18/22 05/26/23 Unknown apixaban 5 mg tablet (Eliquis) 5 mg PO BID #60 tabs 11/15/22 05/26/23 Unknown rosuvastatin 10 mg tablet 10 mg PO DAILY #90 tabs 04/21/23 05/26/23 Unknown valsartan 320 1 tab PO DAILY #90 tabs 05/09/23 05/26/23 Unknown mg-hydrochlorothiazide 25 mg tablet metoprolol succinate 50 mg 50 mg PO BID #180 tabs 05/10/23 05/26/23 Unknown tablet,extended release 24 hr Active Medications Generic Name Dose Route Start Last Admin Trade Name Freq PRN Reason Stop Dose Admin Amiodarone HCl 200 mg 05/27/23 09:00 05/27/23 08:01 Amiodarone 200 Mg Tab PO 06/26/23 08:59 200 mg DAILY STEFANIE Administration Aspirin 81 mg 05/27/23 09:00 05/27/23 08:01 Aspirin 81 Mg Ectab PO 06/26/23 08:59 81 mg DAILY STEFANIE Administration Hydrochlorothiazide 25 mg 05/27/23 09:00 05/27/23 08:02 Hydrochlorothiazide 25 Mg Tab PO 06/26/23 08:59 25 mg DAILY STEFANIE Administration Diltiazem HCl 125 mg/ Dextrose 125 mls @ 5 mls/hr 05/26/23 21:45 05/27/23 06:03 IV 06/25/23 21:44 10 mg/hr .Q24H STEFANIE 10 mls/hr Titration Protocol 5 MG/HR Heparin Sodium/Dextrose 25,000 units in 500 mls @ 23 mls/hr 05/26/23 23:12 05/27/23 02:26 Heparin Sodium/Dextrose IV 06/25/23 23:11 1,150 units/hr .[id number] STEFANIE 23 mls/hr Administration Protocol 1,150 UNITS/HR Metoprolol Succinate 50 mg 05/26/23 23:12 05/27/23 08:01 Metoprolol Succ 50mg Ext Rel Tab PO 06/25/23 23:11 50 mg BID STEFANIE Administration Rosuvastatin Calcium 10 mg 05/27/23 09:00 05/27/23 08:02 Rosuvastatin Calcium 10 Mg Tab PO 06/26/23 08:59 10 mg QAM STEFANIE Administration Valsartan 320 mg 05/27/23 09:00 05/27/23 08:01 Valsartan 80 Mg Tab PO 06/26/23 08:59 320 mg DAILY STEFANIE Administration Past Medical History Medical History (Updated 05/27/23 @ 11:52 by Elmer Faustin MD) Encounter for pre-operative examination Dyspnea Familial hyperlipidemia Abnormal thyroid blood test Vitamin D insufficiency Sleep walking Medication noncompliance due to cognitive impairment Chest heaviness Bilateral knee pain Occipital neuralgia Fatigue Anemia Thrombocytopenia Myalgia Vitamin B 12 deficiency Breast cancer Hypothyroidism Occipital neuralgia Cerebrovascular [place] disease Brain tumor Bilateral knee pain Inflammatory arthritis Breast cancer, right Hypertensive urgency Right ankle sprain Alopecia Paroxysmal atrial fibrillation Adverse reaction to drug History of atrial fibrillation Past Family History Family History Mother Heart disease Other No pertinent family history Past Surgical History Surgical History Hx of tooth extraction 07/12/21 L molar S/P hernia surgery 2004 H/O right mastectomy H/O cardiac radiofrequency ablation Loose right total knee arthroplasty H/O total hysterectomy 1970 Pacemaker Social History Smoking Status: Never smoker Do You Dip or Chew Tobacco: No Hx Alcohol Use: No Hx Substance Use: No Physical Exam Vital Signs Last Vital Signs Temp 36.8 C 05/27/23 11:35 Pulse 114 H 05/27/23 11:35 Resp 20 05/27/23 11:35 BP 160/115 H 05/27/23 11:35 Pulse Ox 94 05/27/23 11:35 O2 Del Method Room Air 05/27/23 11:35 Testing Laboratory Results 05/27/23 08:09 05/27/23 08:09 PT 10.3 Seconds (9.0-12.0) 05/26/23 18:40 INR 0.9 (0.9-1.1) 05/26/23 18:40 APTT 24 Seconds (21-31) 05/26/23 18:40 Electrocardiogram Date: 05/26/2326-May-2023 18:33:34 [facility]-EDSTAT ROUTINE RETRIEVAL Atrial flutter with 2:1 A-V conduction Inferior infarct , age undetermined Cannot rule out Anterior infarct , age undetermined Abnormal ECG When compared with ECG of 11-JUL-2021 17:20, Atrial flutter has replaced Electronic atrial pacemaker Vent. rate has increased BY 66 BPM Minimal criteria for Anterior infarct are now Present Inferior infarct is now Present 25mm/s10mm/[id number] 243CID: [id number] by: REFERRED SELF Unconfirmed Vent. rate 127 BPM MO interval * ms QRS duration 102 ms QT/QTc 288/418 ms P-R-T axes 1 Chest X-Ray Date: 05/26/23 SINGLE VIEW CHEST CLINICAL HISTORY: Atypical chest pain FINDINGS: A PA chest radiograph is compared to study dated 03/06/2021 and correlated with chest CT dated 08/27/2021. A hiatal hernia is noted. A 2-lead cardiac pacemaker is unchanged in position. The heart is enlarged noting atherosclerotic calcification of the thoracic aorta. The pulmonary vasculature is noncongested. Chronic interstitial thickening is similar to previous. There is bibasilar scarring/atelectasis. No airspace consolidation or large pleural effusion is identified. No pneumothorax is seen. The skeletal structures are osteopenic. The bony thorax is grossly intact. IMPRESSION: 1. Cardiomegaly and cardiac pacemaker without radiographic evidence of congestive failure. 2. No airspace consolidation or large pleural effusion is identified. Echocardiogram Date: 06/23/22 EF: 60-64 LV Function: normal RWMA: + none Other Findings: + LVH (mild) Valvular Disease: + (mild), + AI (mild) and + MR (mild)
--- OUTSIDE RECORDS SUMMARY | 2023-05-27 11:59 | External Medical Summary | Summary of Care ---
Author Name Unknown Organization [facility] Address [address] [place] [address] Phone [phone] Care Team Providers Care Associate Publisher Name Role Phone Waldo Armstrong MD Primary Care Provider [phone] Encounter Details Date Type Department Care Team (Late st Contact Info) Description 05/19/2023 Orders Only Access Center, [place] [address] [place] [address] Ext *DO NOT REMOVE THIS DEPARTMENT* PHYLLIS ADAMS [phone] Requisition, External Radiology [address] [place] [address] Dyspnea* Allergies Active Allergy Reactions Criticality Noted Date Comments Atorvastatin 10/20/2001 muscle aches, fatigue Chocolate Rash 03/21/2020 Acne Clindamycin Anaphylaxis High 08/20/2019 Codeine 03/21/2020 Diltiazem 04/09/2015 weak Epinephrine Other (Please comment) 06/13/2018 Elevated BP Hydrocodone Hives,Itching Medium 01/29/2013 Levothyroxine Sodium 11/11/2009 hives Lidocaine 03/21/2020 Odd facial sensation immediately after injection of lidocaine-epinephrin e Lisinopril 03/21/2020 Metronidazole Anaphylaxis High 03/10/2010 Mupirocin Nausea/vomiting High 08/20/2019 Amlodipine Besylate Bleeding High 09/14/2018 Oxycodone Hives 03/21/2020 Clopidogrel Bisulfate Other (Please comment) High 12/06/2007 Redness Pravastatin 10/20/2001 muscle aches, fatigue Simvastatin 10/20/2001 muscle aches, fatigue Sotalol 10/12/2006 Leg swelling Ticlopidine Hcl 11/11/2009 hives Tramadol Diarrhea,Other (Please comment) 08/20/2019 Ezetimibe Muscle pain 11/05/2008 documented as of this encounter (statuses as of 05/19/2023) Medications Medication Sig Dispensed Refills Start Date End Date Status NITROGLYCERIN 0.4 MG SL SUBL Dissolve 1 tablet on the tongue every 5 min as needed for chest pain. Maximum 3 tablets in 15 min. If chest pain continues, call 911. 25 11 04/29/2006 Active CRESTOR 10 MG PO TABSIndications:Coron kiera atherosclerosis of [place] coronary artery one tab every day 30 Tab 3 03/05/2011 Active Additional Information Patient taking differently: 10 mg, (No route reported), MWF, Informant: Patient, Reported on 06/22/2022 Ascorbic Acid (VITAMIN C) 1000 MG Tablet Take 1 Tablet by mouth in the morning and 1 Tablet before bedtime. 0 Active amiodarone (CORDARONE) 200 MG Tablet Take 1 Tablet by mouth in the morning. 0 06/10/2018 Active Metoprolol Succinate ER 50 MG Oral Tablet Extended Release 24 Hour Take 1 Tablet by mouth in the morning and 1 Tablet before bedtime. 0 Active ELIQUIS 5 MG Tablet Take 1 Tablet by mouth in the morning and 1 Tablet before bedtime. 0 12/28/2018 Active Valsartan-hydroCHLORO thiazide 320-25 MG per tablet Take 1 Tablet by mouth in the morning. 0 Active Acetaminophen 325 MG Oral Tablet (Tylenol) Take by mouth 2 Tablets every 6 hours as needed for Pain, Mild or Fever >38C(100.5F). 30 Tablet 0 10/10/2021 Active hydrALAZINE HCl 50 MG Oral Tablet (Apresoline) Take 1 Tablet by mouth in the morning and 1 Tablet at noon and 1 Tablet before bedtime. 90 Tablet 0 06/25/2022 Active Benzonatate 100 MG Oral Capsule Take 1 Capsule by mouth 3 times a day as needed for Cough for up to 10 days. 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 Diaphragmatic hernia 01/08/2009 Swelling, mass, or lump in chest 11/06/2007 Overview: Fibrous tumor Personal history of malignant neoplasm of breast 06/20/2007 ADVANCE DIRECTIVE INFORMATION 08/19/2006 Overview: Yes, Patient instructed to provide copy of advance directive for provider to review and to be scanned into Electronic Medical Record Atrial fibrillation 04/29/2006 Overview: Going back to at least 2006 - tried on sotalol at that time, not tolerated (unclear based on review of chart what exactly the intolerance was) 12/2014 Echo LVEF 60%, severe LA enlargement 42mL/m2 with grade II diastolic dysfunction; normal LV size/thickness (except TAL of 1.3cm), nml RV/RA size/fcn. With tachy-ashley syndrome (9s post conversion pause in setting of marginally rate controlled AF); pacer implanted 02/18/2015 palpitations, fatigue, lightheadedness episodes 02/2015 which correlated with AFIB detected on her pacemaker; with avg rates in the high 90s. First episode in the setting of recent diltiazem prescription which she subsequently stopped as she thought it was a medication side effect; symptoms recurred but apparently lightheadness much less. 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 Study Titile: Genomics Markers for Patients with Cardiovascular Disease Project # [id number] PI: Dulce Porras MD Please call [phone] with study related questions GENOMICS CARDIO RESEARCH OTHER*[id number] 11/05/2008 03/30/2016 Overview: Renamed Per Clinical Trials Billing Project. Study Titile: Genomics Markers for Patients with Cardiovascular Disease Project # [id number] PI: Dulce Porras MD Please call [phone] with study related questions Cellulitis of trunk 06/06/2007 04/18/19 16 Nausea 06/06/2007 04/18/2015 Overview: ICD-10 update of inactive term OBESITY, UNSPECIFIED 03/10/2004 010 Overview: Per Obesity Taxonomy Mixed dyslipidemia 05/03/199702/03/ 9 Overview: Per Lipid Taxonomy. ACUTE MYCARDIAL INFARCTION,U NSPECIFIED SITE,EPISODE CARE UNSPECIFIED 07/14/2009 documented as of this encounter (statuses as of 05/19/2023) Immunizations Name Administration Dates Next Due TDAP (age 10 and older)(Boostrix) 03/21/2020 documented as of this encounter Social History Tobacco Use Types Packs/Day Years Used Date Smoking Tobacco: Never Smokeless Tobacco: Never Alcohol Use Standard Drinks/Week Comments No 0 (1 standard drink = 0.6 oz pur e alcohol) Sex and Gender Information Value Date Recorded Sex Assigned at Not on file Gender Identity Not on file Sexual Orientation Not on file Job Start Date Occupation Industry Not on file Not on file Not on file documented as of this encounter Functional Status Functional Status Response Date of Assess ment Are you deaf or do you have serious difficulty h earing? No 06/22/2022 Are you blind or do you have serious difficulty seeing, even when wearing glasses? Yes 06/22/2022 Do you have serious difficul ty walking or climbing stairs? (5 years old or older) No 06/22/2022 Do you have difficulty dress ing or bathing? (5 years old or older) No 06/22/2022 Because of a physical, menta l, or emotional condition, do you have difficulty doing errands alone such as visiting a doctor s office or shopping? (15 years old or older) No 06/23/19 Cognitive Status Response Date of Assessm ent Because of a physical, menta l, or emotional condition, do you have serious difficulty concentrating, remembering, or making decisions? (5 years old or older) No 06/22/2022 documented as of this encounter Plan of Treatment Upcoming Encounters Date Type Department Care Team (Late st Contact Info) Description 06/28/2023 12:45 PM EDT Appointment Radiology[address] [place] [address] 06/28/2023 1:00 PM EDT Appointment Radiology[address] [place] [address] Scheduled Orders Name Type Priority Associated Diagnoses Orde r Schedule BASIC SPIROMETRY Procedures Routine Dyspnea Expected: 05/19/2023, Expires: 06/18/2024 DIFFUSION CAPACITY (DLCO) Procedures Routine Dyspnea Expected: 05/19/2023, Expires: 06/18/2024 LUNG VOLUMES (PLETHYSMOGRAPHY) Procedures Routine Dyspnea Expected: 05/19/2023, Expires: 06/18/2024 Health Maintenance Due Date Last Done Comments DXA Scan 1936 Depression Screening 1948 Albumin/Creatinine Ratio 1954 Zoster Vaccines (1 of 2) 1986 COVID-19 Vaccine (1 - 2022-24 season) 2022 Influenza Vaccine (FLU shot) (#1) 2022 DTaP,Tdap,and Td Vaccines (2 - Td or Tdap) 03/21/2030 03/21/2020, 09/02/1999, 02/21/1999, Additional history exists Pneumococcal Vaccine: 65+ Years Completed 09/13/2022, 08/30/2017, 09/28/2007 GARDASIL-HPV IMMUNIZATION SERIES Aged Out No longer eligible based on patient's age to complete this topic Hepatitis B Aged Out No longer eligi ble based on patient's age to complete this topic MENINGOCOCCAL (MENACTRA/MENVEO) Aged Out No longer eligible based on patient's age to complete this topic documented as of this encounter Medical Devices Implanted Type Area Steel Rule Inspector Device Identifier Shelf Expiration Date Model / Serial / Lot Alloderm 2x4 Sheet [id number] - [id number] Implanted:Qty : 1 on 06/26/2009 at OR [facility] Tissue - Human N/A: Abdomen LIFE CE[employer] RED 10/22/2010 [id number] / / [id number] Lens 20.0 Sa60at - [id number] Implanted:Qty : 1 on 11/11/2009 at OR [facility] Left: Eye [employer] 06/21/2014 SA60AT / [id number] / documented as of this encounter Visit Diagnoses Diagnosis Dyspnea- Primary Other dyspnea and respiratory abnormality documented in this encounter Advance Directives Latest Code Status on File Code Status Date Activated Date Inactivated Comments Full Code 06/22/2022 3:15 PM 06/25/2022 6:12 PM This or justus reflects the patients wishes and were consensually agreed upon. Question Answer Comments Discussion of Advance Directives occurred with: Patient Code Status History Code Status Date Activated Date Inactivated Comments Full Code 10/07/2021 6:37 PM 10/10/2021 4:09 PM This order reflects the patients wishes and were consensually agreed upon. Question Answer Comments Discussion of Advance Directives occurred with: Patient Full Code 11/10/2015 5:27 PM 11/11/2015 8:14 PM This order reflects the patients wishes and were consensually agreed upon. Full Code 02/11/2015 11:23 PM 02/13/2015 4:46 PM Th is order reflects the patients wishes and were consensually agreed upon. Question Answer Comments Discussion of Advance Directives occurred with: Patient Does the patient have a Living Will? No Does the patient have Health Care Power of Cashier Checker? No Full Code 06/26/2009 12:55 PM 06/28/2009 7:56 PM This o rder reflects the patients wishes and were consensually agreed upon. Care Teams Associate Publisher Relationship Specialty Start Date End Date Waldo Armstrong MD [address] [place] [address] PCP - General Family Medicine 02/05/14 documented as of this encounter
--- OUTSIDE RECORDS SUMMARY | 2023-05-27 11:59 | External Medical Summary | Continuity of Care Document ---
Author Name Unknown Organization [address] Address [address] [place], [place] [id number] Care Team Providers Care Towel Hemmer Name Role Phone Waldo Armstrong Primary Care Physician [phone] [facility] [id number] Date(s): 05/16/23 - 05/16/[address], [address] [place] [address] [phone] Encounter Diagnosis Cough(Discharge Diagnosis) - 05/16/23 Anticoagulated(Discharge Diagnosis) - 05/16/23 HTN (hypertension)(Discharge Diagnosis) - 05/16/23 Discharge Disposition: Home or Self Care Attending Physician: ENA Neff Sarah A Allergies, Adverse Reactions, Alerts Substance Reaction Severity Status codeine unknown Active sotalol swelling, legs red Active clindamycin Shock Anaphylaxis Active pravastatin muscle pain Active simvastatin muscle pain Active Ticlid rash Active Bactroban 2% topical cream faint, nausea Active Zetia muscle pain Active lisinopril unkown Active epinephrine-lidocaine odd facial sensation immediately Active clopidogrel 1 Hives Shock Active Plavix hives Active Levoxyl not sure of reaction Active Cleocin HCl Anaphylaxis Active Tylenol with Codeine #3 not sure Acti ve Statins (HMG-CoA reductase inhibitors) arthralgias Active Mupirocin Nausea Weakness Active oxyCODONE rash Active HYDROcodone rash Active traMADol Loss of appetite Diarrhea Active metroNIDAZOLE Anaphylaxis Active 1Patient stated that she gets Hives but not Shock with this medicine Assessment and Plan Extracted from: Title:Cardiology Office Visit Note Author:ENA Stanton rd, Sarah A Date:05/16/23 Impression: 1. Symptomatic paroxysmal atrial fibrillation status post AFib ablation in 2015, currently on amiodarone and apixaban. 2. 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 3. History of coronary artery disease. 4. Preserved left ventricular systolic function without obvious wall motion abnormalities. 5. Hyperlipidemia, intolerant of statins. 6. Hypertension. 7. Echocardiogram August 2018, mildly dilated preserved left ventricular systolic function and type 2 diastolic dysfunction; dilated right ventricle with normal systolic function; mild aortic stenosis and mild pulmonary hypertension. 8. Multiple falls. 9. Meningioma. 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 Ms. Prather's cough is improved. It does not appear to be cardiac in nature. The BNP her pcp ran just before she went to the ED was normal. Her chest Xray in the ED was normal. I will request a copy of her EKG to review from her Ed visit. She has not missed any doses of her blood thinner which does make PE less likely though not impossible. However, as her symptoms are resolving and she is not sob or hypoxic, I will defer to her pcp who she sees tomorrow for further workup. Her blood pressure was very high in the ED and is a little high today. Looking back at her pcp office visits and our clinic visits over the last month, this has not been the case so I will not adjust her medications for now. I reiterated a low sodium diet and to let us know if home bps are getting over 140/90 She returns to the clinic in five months. Medications amiodarone 200 mg oral tablet Start: 05/09/23 9:27:00 EDT, See Instructions, Disp# 90 tab, Refills: 3, TAKE 1 TABLET BY MOUTH EVERY DAY, Pharmacy: [facility]/pharmacy #[id number] Start Date: 05/09/23 Status: Ordered aspirin 81 mg oral tablet Start: 07/02/13 13:46:00, 1 tab, PO, Daily Start Date: 07/02/13 Status: Ordered Eliquis 5 mg oral tablet Start: 07/17/19 11:11:00 EDT, 1 tab, PO, bid Start Date: 07/17/19 Status: Ordered EPINEPHrine 0.15 mg injectable kit Start: 06/02/20 17:06:00 EDT, 0.15 mg =, IM, ONCE, Disp# 1 each, Refills: 0, PRN: as needed for anaphylaxis, Pharmacy: [facility]/pharmacy #[id number] Start Date: 06/02/20 Status: Ordered hydrALAZINE 10 mg oral tablet Start: 02/18/21 16:36:00 EST, 1 tab, PO, tid, Disp# 200 tab, Refills: 11, Note to Pharmacy: May take an additional 10mg tablet 1 hour after each caicedo if BP remains >180/90, Pharmacy: [facility]/pharmacy #[id number] Start Date: 02/18/21 Status: Ordered hydroCHLOROthiazide-valsartan 25 mg-320 mg oral tablet Start: 08/13/19 11:00:40 EDT, See Instructions, Disp# 90, Refills: 3, TAKE 1 TABLET BY MOUTH EVERY DAY, Pharmacy: [facility]/pharmacy #[id number], TAKE 1 TABLET BY MOUTH EVERY DAY Start Date: 08/13/19 Status: Ordered inhaler spacer Start: 07/06/21 11:35:00 EDT, See Instructions, Disp# 1 each, use with mdi, Pharmacy: [facility]/pharmacy #[id number] Start Date: 07/06/21 Status: Ordered metoprolol succinate (ER) Start: 06/02/20 15:41:00 EDT, 50 mg =, PO, bid Start Date: 06/02/20 Status: Ordered Mental Status 05/16/23 Barriers to Learning one year None evide nt Mandatory Health Literacy Documentation Yes Health Literacy Communication Barriers N ever Primary Language Korean Problem List Condition Confirmation Course Effective Dates Status Health St atus Informant Aortic stenosis Confirmed Active Arthritis Confirmed Active Atrial fibrillation Confirmed Active Hematuria Confirmed Active Cardiac pacemaker Confirmed Active Occipital neuralgia Confirmed Active Contact dermatitis Confirmed Active Hypertension Confirmed Active GERD (gastroesophageal reflux disease) Confirmed Active Headache Confirmed Active History of basal cell carcinoma of skin Confirmed Active H/O syncope Confirmed Active Inflamed seborrheic keratosis Confirmed Active Abnormal brain MRI Confirmed Active Breast cancer Confirmed Active Brain mass Confirmed Active Neoplasm of uncertain behavior of skin Confirmed Active Afib Confirmed Active Elevated cholesterol Confirmed Active Falls frequently Confirmed Active Rosacea Confirmed Active Seborrheic keratosis Confirmed Active Sinus node dysfunction Confirmed Active Trichilemmal cyst Confirmed Active Weight disorder Confirmed Active Diagnosis Diagnosis Type Effective Dates Health Status Clinical Service Informant Anticoagulated Discharge Diagnosis 05/16/23 Non-Specified HTN (hypertension) Discharge Diagnosis 05/16/23 Non-Specified Cough Discharge Diagnosis 05/16/23 Non-Specified Procedures Procedure Date Related Diagnosis Body Site Status Cystoscopy 07/24/21 Completed Nerve block 1 03/14/20 Completed Knee replacement 2 09/2017 Comple char Upper GI endoscopy 3 03/21/17 Comp leted D&C - Dilatation and curettage 01/29/15 Completed Shave biopsy 4 01/22/15 Completed Surgery 5 2011 Completed Hiatal hernia 2008 Completed Hysterectomy and bilateral salpingo-oophorectomy sample 1969 Com pleted Cardiac catheterization x 6 Completed Mastectomy, partial (eg, lum pectomy, tylectomy, quadrantectomy, segmentectomy); with axillary lymphadenectomy. Completed Pacemaker Completed Shave biopsy of skin Comp leted Stent placement x2 Comple char 1Bilateral Greater/Lesser Occipital NB 2right knee replacement 3Z-line regular, 37 cm from the incisors. A fundoplication was found. The wrap appears intact. Normal stomach. Normal examined duodenum. No specimens collected. 4x2 sites 5hiatal hernia repair Vital Signs Most recent to oldest [Reference Range]: 1 Patient Weight 86 kg (05/16/23 10:19 AM) Heart Rate 67 bpm (05/16/23 10:19 AM) Respiratory Rate 18 br/min (05/16/23 10:19 AM) Blood Pressure 156/88mmHg (05/16/23 10:19 AM) Cuff Pulse Pressure 68 mmHg (05/16/23 10:19 AM) BP Location # 1 Left Arm (05/16/23 10:19 AM) Social History Social History Type Response Smoking Status Never smoked cigaret cyn Sex Female Implantable Device List Procedure Provider Procedure Date Device Type Site Unknown Unknown 02/18/15 Non Biological Chest Device Identifier Serial Number Lot or Batch Number Manufacturing Date Expiration Date Distinct Identification Code MRI Safety Implantable Status Assigning Authority Unknown 1 [id number] Unknown Unknown Unknown Unknown MR Forbes onal Active Unknown 1Leads:RV - [employer] - #5076 - CapSureFix Novus MRI - SN: [id number] - 02/18/2015RA - [employer] - #5076 - CapSureFix Novus MRI - SN:[id number] - 02/18/2015 Cardiology Outpatient Note * ENA Neff Sarah A: MODIFY, PERFORM Event Display: Cardiology Outpt Note Authored Date: [id number] Primary Care Provider MD Patti, Waldo Prince Chief Complaint urgent care - R/O PE 1 week ago History of Present Illness Ms. Prather presents for hospital follow up. She was referred to the ED by her pcp after a d-dimer drawn for cough was elevated. She presented to the ED at [facility]. A CTA chest was not performed. She had a chest Xray which did not show acute changes, pneumonia or pulmonary edema. She had an EKG but the tracing is not available. She is feeling much better at this point. Her cough has improved. No sob or chest pain. Bps at home tic118u/80s. Review of Systems All other systems reviewed and negative except as discussed in the HPI Physical Exam Vitals & Measurements HR:67(Monitored) RR:18 BP:156/88 SpO2:96% WT:86kg WT:86.000kg(Dosing) Physical Examination General: Alert and oriented, No acute distress. Respiratory: Lungs are clear to auscultation, Respirations are non-labored. Cardiovascular: Normal rate, Regular rhythm, No murmur, No edema, no carotid bruits to auscultation bilaterally. Integumentary: Warm, Dry, [place] Neurologic: Alert, Oriented. Cognition and Speech: Speech clear and coherent. Psychiatric: Cooperative, Appropriate mood & affect. Assessment/Plan Impression: 1. Symptomatic paroxysmal atrial fibrillation status post AFib ablation in 2015, currently on amiodarone and apixaban. 2. 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 3. History of coronary artery disease. 4. Preserved left ventricular systolic function without obvious wall motion abnormalities. 5. Hyperlipidemia, intolerant of statins. 6. Hypertension. 7. Echocardiogram August 2018, mildly dilated preserved left ventricular systolic function and type2 diastolic dysfunction; dilated right ventricle with normal systolic function; mild aortic stenosis and mild pulmonary hypertension. 8. Multiple falls. 9. Meningioma. 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 Ms. Prather's cough is improved. It does not appear to be cardiac in nature. The BNP her pcp ran just before she went to the ED was normal. Her chest Xray in the ED was normal. I will request a copy of her EKG to review from her Ed visit. She has not missed any doses of her blood thinner which does make PE less likely though not impossible. However, as her symptoms are resolving and she is not sob or hypoxic, I will defer to her pcp who she sees tomorrow for further workup. Her blood pressure was very high in the ED and is a little high today. Looking back at her pcp office visits and our clinic visits over the last month, this has not been the case so I will not adjust her medications for now. I reiterated a low sodium diet and to let us know if home bps are getting over 140/90 She returns to the clinic in five months. Problem List/Past Medical History Ongoing Abnormal brain MRI Afib Aortic stenosis Arthritis Atrial fibrillation Brain mass Breast cancer Cardiac pacemaker Contact dermatitis Elevated cholesterol Falls frequently GERD (gastroesophageal reflux disease) H/O syncope Headache Hematuria History of basal cell carcinoma of skin Hypertension Inflamed seborrheic keratosis Neoplasm of uncertain behavior of skin Neuralgia Occipital neuralgia Rosacea Seborrheic keratosis Sinus node dysfunction Trichilemmal cyst Weight disorder Procedure/Surgical History Cystoscopy| Service Date: 07/24/2021Nerve block| Service Date: 03/14/2020Knee replacement|Service Date: 09/2017 Upper GI endoscopy| Service Date: 03/21/2017 D&C - Dilatation and curettage| Service Date: 01/29/2015Shave biopsy| Service Date: 01/22/2015Surgery| Service Date: 2011Hiatal hernia| Service Date: 2008Hysterectomy and bilateral salpingo-oophorectomy sample| Service Date: 1968Mastectomy, partial (eg, lumpectomy, tylectomy, quadrantectomy, segmentectomy); with axillary lymphadenectomy.PacemakerStent placement [id number] catheterization x 6Shave biopsy of skin Medications amiodarone(amiodarone 200 mg oral tablet), See Instructions, 3 refills apixaban(Eliquis 5 mg oral tablet), 5 mg= 1 tab, PO, bid aspirin(aspirin 81 mg oral tablet), 81 mg= 1 tab, PO, Daily EPINEPHrine(EPINEPHrine 0.15 mg injectable kit), 0.15 mg, IM, ONCE, PRN hydrALAZINE(hydrALAZINE 10 mg oral tablet), 10 mg= 1 tab, PO, tid, 11 refills hydroCHLOROthiazide-valsartan(hydroCHLOROthiazide-valsartan 25 mg-320 mg oral tablet), See Instructions, 3 refills inhalation accessory(inhaler spacer), See Instructions metoprolol(metoprolol succinate (ER)), 50 mg, PO, bid Allergies Bactroban 2% topical creamfaint, nausea Cleocin HClAnaphylaxis HYDROcodonerash Levoxylnot sure of reaction MupirocinNausea, Weakness Plavixhives Statins (HMG-CoA reductase inhibitors)arthralgias Ticlidrash Tylenol with Codeine #3not sure Zetiamuscle pain clindamycinShock, Anaphylaxis clopidogrelHives, Shock codeineunknown epinephrine-lidocaineodd facial sensation immediately lisinoprilunkown metroNIDAZOLEAnaphylaxis oxyCODONErash pravastatinmuscle pain simvastatinmuscle pain sotalolswelling, legs red traMADolLoss of appetite, Diarrhea Social History Smoking Status Never smoked cigarettes Electronic Signature on File CC: Waldo Armstrong MD [address] [place] [address] * Electronically Reviewed/Signed by: ENA Sánchez Author Signature Dt/Tm:05/16/2023 11:11 AM [facility] Patient Care team information Care Team Personnel Name: MD Patti, Waldo Prince Position: Referring DIRECT Member Role: Primary Care Provider Address: Address: [address] [place] [address] Name: MD Alejandro, [facility] Position: Physician - Anesthesiologist Member Role: Lifetime Relationship Address: Address: [address] [place] [id number] [place] Name: ENA Dixon Stacey L Position: Nurse Pract - Cardiology Member Role: Lifetime Relationship Address: Address: [address] [place] [address] [place] [address] [place] Care Team Related Persons Name: KIM PRATHER Address: home [address] [place], [phone] Name: KIM PRATHER Address: home [address] [facility], [phone] Name: JOSE KENNEDY Address: home [address] [facility], [phone]"
--- NOTE | 2023-05-27 12:28 | Cardioversion ---
Date of Service May 27, 2023 PG Electrical Cardioversion Rp Electrical Cardioversion Report Indication: Symptomatic atrial fibrillation with RVR. Procedure: - Sedation with propofol per Anesthesia service - Pads placed in anterolateral position. - Received single synchronized shock at 200J - Tolerated procedure well Summary: 1. Successful Electrical cardioversion of atrial fibrillation to sinus rhythm. Recommendation: - Continue anticoagulation for 4 weeks uninterrupted. - Amiodarone, beta-cristin per Dr. Mathew. Coding Level of Care Code 61318 CARDIOVERSION, ELECTIVE Additional Codes Electrical Cardioversion Report ([id number])
[2023-05-27] MEDS ORDERED: PROPOFOL IV EMULSION 10 MG/ML 20 ML VIAL IV ONE (12:29)
--- NOTE | 2023-05-27 14:00 | Anesthesiology Progress Note ---
Date of Service May 27, 2023 Anesthesia Post Procedure Vital Signs Vital Signs: Temp Pulse Pulse Pulse Resp BP BP 05/27/23 13:03 36.5 C 60 14 144/87 H 05/27/23 12:48 36.5 C 60 14 148/88 H 05/27/23 12:33 36.5 C 60 14 127/80 05/27/23 12:18 36.5 C 65 14 131/72 05/27/23 12:05 36.5 C 109 H 14 158/120 H 05/27/23 11:35 36.8 C 114 H 20 160/115 H 05/27/23 07:59 36.8 C 109 H 20 156/110 H 05/27/23 07:35 36.8 C 107 H 20 156/110 H 05/27/23 07:35 05/27/23 07:33 103 H 05/27/23 05:31 97 H 20 124/94 05/27/23 02:09 90 05/27/23 02:00 115 H 16 107/88 05/27/23 01:00 94 H 20 159/80 H 05/26/23 23:26 116 H 05/26/23 23:00 128 H 14 165/119 H 05/26/23 21:30 134/102 H 05/26/23 21:30 126 H 23 05/26/23 21:00 128 H 22 05/26/23 21:00 139/100 05/26/23 20:31 103 H 22 05/26/23 20:31 127/104 H 05/26/23 20:30 119 H 20 05/26/23 20:27 120 H 119/86 05/26/23 20:01 111 H 23 05/26/23 20:01 119/86 05/26/23 20:01 119/86 05/26/23 20:00 105 H 15 05/26/23 19:56 05/26/23 19:54 127 H 05/26/23 19:35 130 H 20 111/80 05/26/23 18:29 36.5 C 128 H 20 138/84 Pulse Ox Pulse Ox O2 Del Method O2 Del Method 05/27/23 13:03 99 Room Air 05/27/23 12:48 99 Room Air 05/27/23 12:33 99 Room Air 05/27/23 12:18 99 Room Air 05/27/23 12:05 99 Room Air 05/27/23 11:35 94 Room Air 05/27/23 07:59 94 Room Air 05/27/23 07:35 98 Room Air 05/27/23 07:35 96 Room Air 05/27/23 07:33 05/27/23 05:31 93 Room Air 05/27/23 02:09 05/27/23 02:00 92 Room Air 05/27/23 01:00 93 Room Air 05/26/23 23:26 05/26/23 23:00 96 Room Air 05/26/23 21:30 05/26/23 21:30 94 Room Air 05/26/23 21:00 94 05/26/23 21:00 05/26/23 20:31 92 05/26/23 20:31 05/26/23 20:30 93 Room Air 05/26/23 20:27 05/26/23 20:01 94 05/26/23 20:01 05/26/23 20:01 05/26/23 20:00 92 Room Air 05/26/23 19:56 93 Room Air 05/26/23 19:54 05/26/23 19:35 96 Room Air 05/26/23 18:29 97 Room Air Transfer of Care Handoff Completed per policy Notes Mental Status: alert / awake / arousable and participated in evaluation Patient Amnestic to Procedure: Yes Nausea / Vomiting: adequately controlled Pain: adequately controlled Airway Patency, RR, SpO2: stable & adequate BP & HR: stable & adequate Hydration State: stable & adequate Anesthetic Complications: no major complications apparent
[2023-05-27] MEDS: ONDANSETRON INJ 2 MG/ML 2 ML VIAL IV PRN (16:24)
[2023-05-27] MEDS: APIXABAN 5 MG TABLET PO ONE (16:40)
--- NOTE | 2023-05-27 16:45 | XCELERA ---
[id number] [id number]
--- NOTE | 2023-05-27 18:11 | XRay Report ---
KUB HISTORY: Acute abdominal pain abdominal pain COMPARISON: CT 04/09/2021 FINDINGS: Cardiomegaly with partially imaged pacer leads. Nonobstructive bowel gas pattern. Moderate colonic fecal retention. Contrast in the urinary bladder lumen. Pelvic basin phleboliths. No renal c alculi. No ureteral calculi. No pneumoperitoneum or pneumatosis. Moderate osteoarthritis of the hips. Degenerative changes of the spine and pelvis. No fracture. IMPRESSION: Nonobstructive bowel gas pattern. ACT 112: Negative or not required by law. The above report was generated using voice recognition software. It may contain grammatical, syntax o r spelling errors. Electronically signed by: Toñito Sanchez M.D. 05/27/2023 6:10 PM
[2023-05-27 18:25] LABS: Hematocrit (blood only) 38.5 % (37.0-47.0); Hemoglobin 12.6 g/dl (12.0-16.0)
[2023-05-27] MEDS: FAMOTIDINE 40 MG TABLET PO ONE (18:47)
[2023-05-27] MEDS: ACETAMINOPHEN 1,000 MG/100 ML VIAL IV STA (18:48)
[2023-05-27 18:51] LABS: Troponin I High Sensitivity 86.1 pg/ml (0-14)
--- NOTE | 2023-05-27 18:54 | Communication Note ---
Date of Service: May 27, 2023 By CMS guidelines, a determination that the admission or continued stay is not medically necessary has been made by a member of the UR committee and a physic nuria for this hospital stay, therefore a Code 44 will be completed and the Inpatient admission will be changed to outpatient.
--- NOTE | 2023-05-27 18:57 | Discharge Summary ---
"Date of Service May 27, 2023 Admission HPI Per Admitting Provider Debby is an 88F w/ PMH of HLD, R Breast Cancer s/p mastectomy, anemia, ASCVD, hypothyroidism, hypertension, paroxysmal A Fib on Eliquis s/p ablation, diastolic heart failure, pseudogout, and osteoarthritis who presents for evaluation of chest heaviness and dyspnea. Patient notes that over the last week she has been having episodic chest pains which occur 2-3 tiems per day and rarely last more than a few moments. She describes the feeling as a pressure in the top of her chest over the sternum. She notes increasing dyspnea and feels as though she is running out of air when she talks. She denies crushing/stabbing chest pain or pain radiating to the jaw or arm. She notes a history of CAD w/ two prior MIs (> 25 years ago), she is unable to correlate these symptoms with prior MIs. She denies nausea, vomitting, or diaphoresis. She is not experiencing any bowel/bladder changes. She denies any lower extremity edema, claudication, or orthopnea. She us unable to assess for dyspnea on exertion as she is largely sedentary, she does not feel her CP is worse when walking. She notes that she had similar symptoms 6 weeks ago and was seen outpatient, at this point in time a D-dimer was checked and it was el evated. Becuase of this, she was sent to the ED for evaluation for a PE, a chest XR was performed, but no CTA. She subsequently saw her Probe Operator (note on file). Patient denies any recent medication changes, last dose of Metoprolol and Eliquis were this morning. She has had no new dieteray changes, notes she has no GERD symptoms or dysphagia. She denies any recent headaches, lightheadedness, or dizziness. Principal Diagnosis atrial fibrillation Discharge Exam Gen: NAD, alert, interactive HEENT: Supple, no LAD, no thyromegaly, no JVD Resp:Non-labored, no wheezing/rhonchi/rales, CTAB CV:RRR S1/S2, no M/R/G Abd: Soft, non-distended, no TTP, normoactive bowels, no masses Extr: 2+ dp bilaterally, no edema Skin: No rashes lesions or erythema Discharge Data Allergies Allergy/AdvReac Type Severity Reaction Status Date / Time clindamycin Allergy Severe SHOCK Verified 05/26/23 21:58 clopidogrel Allergy Severe HIVES Verified 05/26/23 21:58 epinephrine Allergy Severe NUMBNESS Verified 05/26/23 21:58 codeine Allergy Unknown UNKNOWN Verified 05/26/23 21:58 ezetimibe Allergy Unknown UNKNOWN Verified 05/26/23 21:58 hydrocodone Allergy Unknown UNKNOWN Verified 05/26/23 21:58 levothyroxine Allergy Unknown UNKNOWN Verified 05/26/23 21:58 metronidazole Allergy Unknown LOSS OF Verified 05/26/23 21:58 PIGMENT IN SKIN. FATIGUE mupirocin Allergy Unknown WEAKNESS,NA Verified 05/26/23 21:58 USEATED oxycodone Allergy Unknown UNKNOWN Verified 05/26/23 21:58 sotalol Allergy Unknown SWOLLEN Verified 05/26/23 21:58 ANKLES/REDNESS ON RIGHT LEG ticlopidine Allergy Unknown RASH Verified 05/26/23 21:58 lisinopril Allergy Unknown Verified 05/26/23 21:58 Yebacwc-OIP-KdY Reductase AdvReac Unknown ACHY JOINTS Verified 05/26/23 21:58 Inhibitor [Mahopfz-Laz-Oqt Reductase Inhibitor] tramadol AdvReac Nausea Verified 05/26/23 21:58 Consultations 05/26/23 20:28 ED Decision to Admit Stat 05/26/23 23:12 Consult Cardiology Routine Procedures Performed Operation Date: 05/27/23 13:00 Actual Procedures p Cardioversion - Elmer Jeong MD Ordered Studies 05/26/23 22:14 CT angio chest PE protocol Stat Hospital Course (1) Dyspnea: (2) Chest heaviness: (3) Familial hyperlipidemia: (4) Anemia: (5) On anticoagulant therapy: (6) ASCVD (arteriosclerotic cardiovascular disease): (7) Hypothyroidism: (8) Hypertension: (9) Paroxysmal atrial fibrillation: (10) Chronic diastolic heart failure: Plan Summary: Debby is an 88F w/ PMH of HLD, R Breast Cancer s/p mastectomy, anemia, ASCVD, hypothyroidism, hypertension, paroxysmal A Fib on Eliquis s/p ablation, diastolic heart failure, pseudogout, and osteoarthritis who presents for evaluation of chest heaviness and dyspnea. ED Course: Cardizem, Aspirin, IV Metoprolol New Chest Pressure | New Dyspnea * Hx of ACS, [place] x 2, troponin elevated to 81.4, EKG w/ new A Flutter (rate 120- 130s) no acute ST or T wave changes * Recently Elevated D-Dimer 1030 on 05/10/23, eval at OSH due to dyspnea/chest pain negative but w/o CTA * Ongoing anticoagulation w/ Eliquis, last dose this AM * No ACS * Consulted cardiology, appreciate recommendations * Transitioned to Heparin ggt incase need for cath New Atrial Flutter w/ Tachycardia | Atrial Fibrillation on Eliquis * Patient w/ history of Atrial Fibrillation s/p ablation in 2016 on Amiodarone and Eliquis * EKG on presentation indicating Atrial Flutter w/ rates 120s-130s * Summary: 1. Successful Electrical cardioversion of atrial fibrillation to sinus rhythm. Recommendation: - Continue anticoagulation for 4 weeks uninterrupted. - Amiodarone, beta-cristin per Dr. Mathew. Chronic Conditions: * CAD: Continue Metoprolol, Aspirin and Statin * HTN: Antihypertensives as above, Hydralazine held * Diastolic CHF: No active diuretic use * OA: Tylenol PRN * Patient was also bloated at time of discharge but this improved when she began to ambulate and she asked to be discharged. Code Status:Full Diet:NPO IVF:None DVT PPx:Heparin ggt CM: None Dispo: PCU/tele Total Time Total Time Spent Total Time Spent (In Minutes): 32 Discharge Plan Discharge Items Patient Disposition: Home - Self-Care Reason For Visit: CHEST DISCOMFORT/DYSPNEA Discharge Diagnosis: chest discomfort Activity: Resume your previous activity Non-emergency contact: Primary Care Provider Call non-emergency contact if: you have any medication questions Follow-up/Referrals: Waldo Armstrong MD [Primary Care Provider] - Diet: Heart Healthy Addtl Attending Provider Instructions: You were seen for rapid heart rate. You were cardioverted by Dr. Jeong. Dr. Mathew recommended amiodarone 200 mg twice a day for 2 weeks. This will then be decreased back to once a day. His office will call to schedule a followup. If you have constipation the next few days, you can take miralax. Pending Studies at Discharge: No Stand-Alone Forms: My [facility], Smoking Cessation Medications and DC Order Prescriptions: Continued mecobalamin (vitamin B12) 1,000 mcg tablet,disintegrating 1,000 mcg sublingual DAILY Qty: 90 3RF Rx Instructions: place tablet under tongue and allow to dissolve for at least30 secs before swallowing hydralazine 50 mg tablet 50 mg PO TID Qty: 270 3RF Eliquis 5 mg tablet 5 mg PO BID Qty: 60 5RF valsartan-hydrochlorothiazide 320-25 mg tablet 1 tab PO DAILY Qty: 90 3RF metoprolol succinate 50 mg tablet extended release 24 hr 50 mg PO BID Qty: 180 3RF acetaminophen 325 mg tablet 650 mg PO QID PRN (Reason: Fever Or Pain) aspirin 81 mg tablet,delayed release (DR/EC) 81 mg PO DAILY Qty: 30 2RF rosuvastatin 10 mg tablet 10 mg PO DAILY Qty: 90 3RF Changed amiodarone 200 mg tablet See Rx Instructions .ROUTE .COMPLEX Qty: 45 0RF Rx Instructions: Take 1 tablet twice a day for 2 weeks, then return to your previous dose of 1 tablet in the morning Discharge Orders: Discharge Order (Routine); Ordered 05/27/23 Ordered By: Skip Bneson Admission Data Admit Date/Time: 05/26/23 22:23 Attending Provider: Skip Benson Admit Provider: Ирина Riley Primary Care Provider: Waldo Armstrong Other Providers: Jeremiah Vergara; Marcos Del Angel; Bennie Brink; Jett Brown; Michael Roman; Kashmir Hagan; Salvador Morrow Jr; Nick Chiang; Nasrin Acosta; Sarahy Martinez; Elmer Jeong; Elmer Gray; Albert Jovel; Natividad Noriega; Blade Spaulding; Rosalba Sheth; Jadon Young; Nura Khan; Trenton Rene; Jose Doyle; [facility] Other Interventions: Discharge Summary Assessment (RN) Last Done: 05/27/23 19:09 Coding Level of Care Code 70390 INP/OBS DISCH >30 MIN Diagnoses Dyspnea R06.00 Chest heaviness R07.89 Familial hyperlipidemia E78.49 Anemia D64.9 On anticoagulant therapy Z79.01 ASCVD (arteriosclerotic cardiovascular disease) I25.10 Hypothyroidism E03.9 Hypertension I15.9 Hypertension type: unspecified secondary hypertension Paroxysmal atrial fibrillation I48.0 Chronic diastolic heart failure I50.32"
[2023-05-27] MEDS ORDERED: AMIODARONE 200 MG TAB PO SCH (21:00)
[2023-05-28] MEDS ORDERED: APIXABAN 5 MG TABLET PO SCH (06:00)
--- NOTE | 2023-05-28 06:20 | Electrocardiogram Report ---
Test Reason : Blood Pressure : / mmHG Vent. Rate : 127 BPM Atrial Rate : 254 BPM P-R Int : 000 ms QRS Dur : 102 ms QT Int : 288 ms P-R-T Axes : 174 -18 -07 degrees QTc Int : 418 ms Atrial flutter with 2:1 A-V conduction Inferior infarct , age undetermined Cannot rule out Anterior infarct , age undetermined Nonspecific T wave abnormality Abnormal ECG When compared with ECG of 11-JUL-2021 17:20, Atrial flutter has replaced Electronic atrial pacemaker Vent. rate has increased BY 66 BPM Minimal criteria for Anterior infarct are now Present Inferior infarct is now Present Confirmed by Nick Chiang ([id number]) on 05/28/2023 6:20:31 AM Referred By: REFERRED SELF Confirmed By:Nick Chiang
--- NOTE | 2023-05-28 06:21 | Electrocardiogram Report ---
Test Reason : Blood Pressure : / mmHG Vent. Rate : 060 BPM Atrial Rate : 060 BPM P-R Int : 220 ms QRS Dur : 094 ms QT Int : 460 ms P-R-T Axes : 001 -06 013 degrees QTc Int : 460 ms Atrial-paced rhythm with prolonged AV conduction Cannot rule out Inferior infarct Abnormal ECG When compared with ECG of 26-MAY-2023 18:33, Electronic atrial pacemaker has replaced Atrial flutter Vent. rate has decreased BY 67 BPM Nonspecific T wave abnormality no longer evident in Anterior leads Confirmed by Nick Chiang ([id number]) on 05/28/2023 6:21:16 AM Referred By: REFERRED SELF Confirmed By:Nick Chiang
== END 2023-05-27 19:44 | disposition home health service (06) | DRG 309 ==
LOC: ED 18:26 → INTOOBSV 22:23 → EDINP 22:23 → SUATTDRO 22:23 → EDINP 05-27 12:01 → 2S 05-27 13:51